=== PATIENT | male | born 1950 | race Caucasian/White ===

== ENCOUNTER 2019-05-01 17:22 | Emergency (ER) | payer SELFPAY ==
--- NOTE | 2019-05-01 17:36 | PDOC ---
Rapid Medical Evaluation Chief Complaint: Pain Time Seen by Provider: 05/01/19 17:29 Medical Evaluation: 05/01/19 17:37 I have performed a brief in-person evaluation of this patient. The patient presents with a chief complaint of: pain to RUQ x 1 hour- was pale / - no N/V/ D/C- had cardiac surgery 5 years ago and family concerned about cardiac disease/ event Pertinent physical exam findings:mobile/ able to walk, move from side to side NO SOB, abd soft. I have ordered the following: EKG The patient will proceed to the ED for further evaluation.- taken to Main for further eval/ workup 05/01/19 17:58 05/01/19 17:58 05/01/19 17:59 Discharge Disposition - Diagnosis Pain - Referrals - Patient Instructions - Post Discharge Activity
[2019-05-01 17:42] VITALS: BP 148/83; PULSE 82; TEMP 98.3; BMI 25.7
[2019-05-01] MEDS ORDERED: SODIUM CHLORIDE 1,000 ML IV STA (18:13)
--- NOTE | 2019-05-01 18:37 | PDOC ---
History of Present Illness - General Chief Complaint: Pain Stated Complaint: RIGHT SIDE PAIN Time Seen by Provider: 05/01/19 17:29 History Source: Patient, Family (daughter in law) Exam Limitations: Language Barrier - History of Present Illness Initial Comments: 05/01/19 18:32 Patient is a 69yo M with PMH of CAD s/p stent 5-6y ago in [facility] presenting to ED with complaints of R sided abdominal/flank pain that started 20 minutes [employer]. He has not had pain like this before. Per daughter in law, patient was sleeping and woke up pale and in a sweat complaining of sharp right sided flank/ abdominal pain. Pain does not radiate, no n/v/d, no urinary symptoms, no fevers. He has not had pain like this before. Denies trauma, chest pain, sob, inspirational chest pain, dizziness, vision changes, numbness/tingling. Patient was brought in for worry of another cardiac event. Is visiting from [facility], arrived about 2 days ago. He took 2 Advil and felt slightly better. PMD: [facility] PMH; see hpi PSH: stent Meds: at home, does not know names Allergies: nkda Social: smoked about 1ppd up until 5 years ago when had PCI Past History - Past Medical History Allergies/Adverse Reactions: Allergies Allergy/AdvReac Type Severity Reaction Status Date / Time No Known Allergies Allergy Verified 05/01/19 17:42 Cardiac Disorders: Yes COPD: No - Surgical History Cardiac Surgery: Yes (STENT) - Suicide/Smoking/Psychosocial Hx Smoking History: Former smoker Have you smoked in the past 12 months: No If you are a former smoker, when did you quit?: 6 YEARS AGO Information on smoking cessation initiated: No Hx Alcohol Use: Yes (DAILY) Drug/Substance Use Hx: No Review of Systems - Review of Systems Constitutional: Yes: Diaphoresis. No: Chills, Fever, Weakness HEENTM: No: Eye Pain, Blurred Vision Respiratory: No: Orthopnea, Shortness of Breath, SOB at Rest, Wheezing, Hemoptysis Cardiac (ROS): No: Chest Pain, Lightheadedness, Palpitations, Syncope, Chest Tightness ABD/GI: Yes: See HPI, Abdominal cramping. No: Constipated, Diarrhea, Nausea, Vomiting : Yes: See HPI, Flank Pain. No: Dysuria, Urgency Musculoskeletal: No: Back Pain, Joint Pain Integumentary: No: Symptoms Reported Neurological: No: Symptoms reported *Physical Exam - Vital Signs Last Vital Signs Temp Pulse Resp BP Pulse Ox 98.3 F 82 16 148/83 96 05/01/19 17:36 05/01/19 17:36 05/01/19 17:36 05/01/19 17:36 05/01/19 17:36 - Physical Exam General Appearance: Yes: Nourished, Appropriately Dressed. No: Apparent Distress HEENT: positive: EOMI, DAXA, Normal ENT Inspection Neck: positive: Trachea midline, Supple. negative: Lymphadenopathy (R), Lymphadenopathy (L) Respiratory/Chest: positive: Lungs Clear, Normal Breath Sounds. negative: Labored Respiration Cardiovascular: positive: Regular Rhythm, Regular Rate, S1, S2. negative: Edema , JVD, Murmur Vascular Pulses: Dorsalis-Pedis (R): 2+, Doralis-Pedis (L): 2+ Gastrointestinal/Abdominal: positive: Soft. negative: Tender, Guarding, Rebound , Tenderness Musculoskeletal: positive: CVA Tenderness (R). negative: Muscle Spasm, Vertebral Tenderness Extremity: positive: Normal Capillary Refill, Pelvis Stable. negative: Pedal Edema, Swelling, Calf Tenderness Integumentary: positive: Normal Color, Dry, Warm Neurologic: positive: engineer soils II-XII NML intact, Fully Oriented, Alert, Normal Mood/ Affect, Normal Response, Motor Strength 5/5 ED Treatment Course - LABORATORY CBC & Chemistry Diagram: 05/01/19 18:27 05/01/19 18:27 - RADIOLOGY Radiology Studies Ordered: Category Date Time Status CHEST X-RAY PORTABLE* [RAD] Stat Radiology 05/01/19 18:13 Ordered Medical Decision Making - Medical Decision Making 05/01/19 18:38 Patient is a 69yo M with PMH of CAD s/p stent 5-6y ago in [facility] presenting to ED with complaints of R sided abdominal/flank pain that started 20 minutes [employer]. He has not had pain like this before. Per daughter in law, patient was sleeping and woke up pale and in a sweat complaining of sharp right sided flank/ abdominal pain. Pain does not radiate, no n/v/d, no urinary symptoms, no fevers. He has not had pain like this before. Denies trauma, chest pain, sob, inspirational chest pain, dizziness, vision changes, numbness/tingling. Patient was brought in for worry of another cardiac event. Is visiting from [facility], arrived about 2 days ago. Vitals: wnl, normocadic, saturating well on RA PE: R sided flank pain. No abdominal tenderness, no swelling, no edema, normal heart sounds, normal breath sounds EKG done in triage showed possible stemi? with julio cesar of about 1.5mm in V3, V4, V6. No depressions. Rate 78, WV 148 QRS 140. QTc 462. NSR, RBBB, LAFB, LVH. TWI in I, aVL, V2, V3, V4, V5, V6. -No priors to compare to DDx includes but not limited to STEMI, NSTEMI, PE, renal stone, cholecystitis, pancreatitis, msk, metabolic/electrolyte abnormality, PNA, effusion, carditis, pneumonitis -Pt not having chest pain, not tachycardic, not diaphoretic, saturating well on RA. Could be taking beta blockers. Low suspicion for STEMI at this time. Will order troponin, cbc, cmp, mg, lipase, UA iv fluids, tylenol for pain for now until etiology is found. Will continue to monitor Considering CTA to r/o pe, CTAP for possible stone however low clinical suspicion given presentation but symptoms are slightly concerning (location of pain, sudden onset) dispo dependent on labs and imaging. Will sign out to night team for further management and dispo *DC/Admit/Observation/Transfer Diagnosis at time of Disposition: Pain - Referrals - Patient Instructions - Post Discharge Activity
[2019-05-01 18:45] LABS: BASO % 0.9 % (0-2.0); EOS % 4.7 % (0-4.5); HEMATOCRIT 45.1 % (35.4-49); HEMOGLOBIN 15.4 GM/dL (11.7-16.9); LYMPH % 20.5 % (8-40); MCH 31.5 pg (25.7-33.7); MCHC 34.1 g/dl (32.0-35.9); MEAN CELL VOLUME 92.5 fl (80-96); MEAN PLT VOLUME 8.5 fl (7.5-11.1); NEUT % 64.9 % (42.8-82.8); PLATELET COUNT 191 K/MM3 (134-434); RBC 4.87 M/mm3 (4.00-5.60); RDW 12.6 % (11.9-15.9); WHITE BLOOD COUNT 7.7 K/mm3 (4.0-10.0)
[2019-05-01] MEDS ORDERED: ACETAMINOPHEN 1000 MG/100 ML VIAL (NON FORMULARY) IVPB ONE (18:48)
[2019-05-01 19:06] LABS: LIPASE 228 U/L (73-393)
[2019-05-01 19:17] LABS: ALBUMIN 3.8 g/dl (3.4-5.0); BILIRUBIN,TOTAL 0.5 mg/dL (0.2-1); CALCIUM 8.8 mg/dL (8.5-10.1); CREATININE 0.9 mg/dL (0.55-1.3); POTASSIUM 3.7 mmol/L (3.5-5.1); TOT PROT 7.5 g/dl (6.4-8.2)
[2019-05-01] MEDS ORDERED: ACETAMINOPHEN INJECTION 100 ML IVPB ONE (19:41)
--- NOTE | 2019-05-01 20:19 | PDOC ---
*Physical Exam - Vital Signs Last Vital Signs Temp Pulse Resp BP Pulse Ox 98.3 F 82 16 148/83 96 05/01/19 17:36 05/01/19 17:36 05/01/19 17:36 05/01/19 17:36 05/01/19 17:36 ED Treatment Course - LABORATORY CBC & Chemistry Diagram: 05/01/19 18:27 05/01/19 18:27 - ADDITIONAL ORDERS Additional order review: Laboratory Results 05/01/19 05/01/19 18:27 18:27 Sodium 136 Potassium 3.7 Chloride 103 Carbon Dioxide 27 Anion Gap 6 L BUN 17.0 Creatinine 0.9 Est GFR (CKD-EPI)AfAm 100.65 Est GFR (CKD-EPI)NonAf 86.84 Random Glucose 110 H Calcium 8.8 Magnesium 2.0 Total Bilirubin 0.5 AST 35 ALT 41 Alkaline Phosphatase 64 Troponin I < 0.02 Total Protein 7.5 Albumin 3.8 Lipase 228 05/01/19 18:27 RBC 4.87 MCV 92.5 MCHC 34.1 RDW 12.6 MPV 8.5 Neutrophils % 64.9 Lymphocytes % 20.5 Monocytes % 9.0 Eosinophils % 4.7 H Basophils % 0.9 - Medications Given in the ED: ED Medications Discontinued Medications Generic Name Dose Route Start Last Admin Trade Name Freq PRN Reason Stop Dose Admin Acetaminophen 1,000 mg 05/01/19 18:48 05/01/19 19:50 Ofirmev Injection - IVPB 05/01/19 18:49 1,000 mg ONCE ONE Administration Sodium Chloride 1,000 mls @ 1,000 mls/hr 05/01/19 18:13 05/01/19 19:49 Normal Saline - IV 05/01/19 19:12 1,000 mls/hr ASDIR STA Administration Medical Decision Making - Medical Decision Making 05/01/19 20:12 S/O from Dr. 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 Pain does not radiate, no n/v/d, no urinary symptoms, no fevers. EKG done in triage showed possible stemi? with julio cesar of about 1.5mm in V3, V4, V6. No depressions. Rate 78, [place] 148 QRS 140. QTc 462. NSR, RBBB, LAFB, LVH. TWI in I, aVL, V2, V3, V4, V5, V6 No priors to compare to DDx includes but not limited to STEMI, NSTEMI, PE, renal stone, cholecystitis, pancreatitis, msk, metabolic/electrolyte abnormality, PNA, effusion, carditis, pneumonitis -Pt not having chest pain, not tachycardic, not diaphoretic, saturating well on RA. Trops neg, labs unremarkable Pending UA Considering CTA to r/o pe, CTAP for possible stone however low clinical suspicion given presentation but symptoms are slightly concerning (location of pain, sudden onset) 05/01/19 22:56 UA neg for blood or infection Due to recent travel (10 hour plane ride) and inability to PERC out, CTA of chest to r/o PE ordered Will repeat trop 05/02/19 01:07 Repeat trop neg Neg CTA for PE Pt has stable vitals, ambulates at baseline. Denies ever having SOB, CP and pain is right sided Pt is safe for DC home with PCP and Cardiology f/u Family understands plan *DC/Admit/Observation/Transfer Diagnosis at time of Disposition: Pain - Discharge Dispostion Disposition: HOME Condition at time of disposition: Stable Decision to Admit order: No - Referrals Referrals: John AGUSTIN [Provider Group] Arelis Griffiths MD [Staff Physician] - - Patient Instructions Additional Instructions: Please follow up with the Primary Doctor and Chauffeur referred to you. Continue taking your home dosed medications as prescribed. Return to the ER for new or concerning symptoms including but not limited to: chest pain, difficulty breathing, new back pain. Thank you - Post Discharge Activity
[2019-05-01 21:44] LABS: URINE APPEARANCE CLEAR; URINE BILIRUBIN NEGATIVE (NEGATIVE); URINE COLOR DK YELLOW; URINE GLUCOSE (UA) NEGATIVE (NEGATIVE); URINE KETONE TRACE (NEGATIVE); URINE LEUK ESTERASE NEGATIVE (NEGATIVE); URINE NITRITE NEGATIVE (NEGATIVE); URINE PROTEIN TRACE (NEGATIVE)
--- NOTE | 2019-05-01 22:03 | PDOC ---
Documentation entered by Gerardo Starr SCRIBE, acting as scribe for Ana Mendieta MD. Ana Mendieta MD: This documentation has been prepared by the florencioibeMatty Daniel, SCRIBE, under my direction and personally reviewed by me in its entirety. I confirm that the documentation accurately reflects all work, treatment, procedures, and medical decision making performed by me. Attending Attestation - Resident Resident Name: Landy Morrison - ED Attending Attestation I have performed the following: I have examined & evaluated the patient, The case was reviewed & discussed with the resident, I agree w/resident's findings & plan, Exceptions are as noted - HPI HPI: 05/01/19 18:18 The patient is a 69 year old male with a past medical history of cardiac catheterization (5-6 years ago in [facility]) here today for evaluation of right sided abdominal/flank pain. The patient only speaks Burmese, so daughter at bedside translated. The patient reports that he came to [place] 2 days ago from [facility] and developed right sided flank pain that radiates to the back that woke him up from sleep. Daughter also notes diaphoresis and paleness that have since resolved. Patient denies headache, lightheadedness. Denies fever, chills. Denies chest pain, shortness of breath. Denies nausea, vomiting, diarrhea. Allergies: NKA Social history: Patient confirms former tobacco use (pack a day smoker for 50 years, quit 5 years ago) and social alcohol use. PCP: In [facility] - Physicial Exam PE: 05/01/19 22:00 slender 69-year-old male came to the emergency department because he was awoken by a sudden ight sided pain. His family said he was sweating. He denies any chest pain, shortness of breath, nausea, vomiting, fever or chills, cough. 05/01/19 22:01 slender 69 yo male currently in no distress head ncat neck supple lungs cta b/l cvs [id number] abd no rebound,no guarding no flank pain skin warm and dry neuro axox3,ambulatory psych appropraite - Medical Decision Making 05/02/19 01:04 CTA chest findings: No pulmonary embolism. No aortic dissection or aneurysm. No pneumonia or pleural effusions. Dependent atelectasis bilateral lungs. Minimal left greater than right gynecomastia. Heterogeneous hyperattenuation bilateral kidneys, incompletely seen, question contrast nephropathy following IV contrast administration from a prior exam. Correlate clinically. Small cystic focus right kidney. Right adrenal gland calcification. Steatosis liver. 05/02/19 01:08 69 yo male who traveled from [facility] several days ago p/w acute rt sided pain and diaphoresis according to the family he denied chest pain or shortness of breath -he had no nausea or vomiting lungs were cta b/l, benign abd exam,cvs [id number] labs reviewed and cbc unremarkable troponin x 2 were negative CTA chest negative 05/02/19 01:23 imp: muscle strain/ ? passed kidney stone plan pt feels much better,symptoms resolved, d/c home
--- NOTE | 2019-05-02 14:46 | EKG ---
Test Reason : Blood Pressure : / mmHG Vent. Rate : 076 BPM Atrial Rate : 076 BPM P-R Int : 146 ms QRS Dur : 140 ms QT Int : 406 ms P-R-T Axes : 062 -71 144 degrees QTc Int : 456 ms NORMAL SINUS RHYTHM POSSIBLE LEFT ATRIAL ENLARGEMENT RIGHT BUNDLE BRANCH BLOCK LEFT ANTERIOR FASCICULAR BLOCK BIFASCICULAR BLOCK LEFT VENTRICULAR HYPERTROPHY ANTEROSEPTAL INFARCT , AGE UNDETERMINED T WAVE ABNORMALITY, CONSIDER LATERAL ISCHEMIA ABNORMAL ECG NO PREVIOUS ECGS AVAILABLE Confirmed by MD KELLEE, WILLIE ([id number]) on 05/02/2019 2:46:13 PM Referred By: Confirmed By:WILLIE GOODSON MD
== END 2019-05-02 02:11 | disposition home or self-care (01) ==
LOC: JER 17:22
PROC: 3E0337Z Introduction of Electrolytic and Water Balance Substance into Peripheral Vein, Percutaneous Approach (ICD-10-PCS; principal; 2019-05-01)
PROC: 3E033NZ Introduction of Analgesics, Hypnotics, Sedatives into Peripheral Vein, Percutaneous Approach (ICD-10-PCS; 2019-05-01)
DX: R10.31 Right lower quadrant pain (principal); I25.10 Atherosclerotic heart disease of native coronary artery without angina pectoris; Z95.5 Presence of coronary angioplasty implant and graft
CPT/HCPCS: 36415; 71045-TC-FY; 71275-TC; 80053; 81003; 83690; 83735; 84484; 85025; 87086; 93005; 93010; 99282-25; J0131; J7030

== ENCOUNTER 2019-05-02 12:12 | Inpatient (IN) | payer OTHER ==
--- NOTE | 2019-05-02 12:39 | PDOC ---
History of Present Illness - General Chief Complaint: Pain, Acute Stated Complaint: RT SIDE PAIN Time Seen by Provider: 05/02/19 12:39 History Source: Patient Past History - Past Medical History Allergies/Adverse Reactions: Allergies Allergy/AdvReac Type Severity Reaction Status Date / Time No Known Allergies Allergy Verified 05/02/19 12:15 Cardiac Disorders: Yes COPD: No - Surgical History Cardiac Surgery: Yes (STENT) - Suicide/Smoking/Psychosocial Hx Smoking History: Unknown if ever smoked Have you smoked in the past 12 months: No If you are a former smoker, when did you quit?: 6 YEARS AGO Hx Alcohol Use: Yes (DAILY) Drug/Substance Use Hx: No *Physical Exam - Vital Signs Last Vital Signs Temp Pulse Resp BP Pulse Ox 97.2 F L 76 18 145/82 97 05/02/19 12:13 05/02/19 12:13 05/02/19 12:13 05/02/19 12:13 05/02/19 12:13
[2019-05-02 13:03] LABS: BASO % 0.5 % (0-2.0); EOS % 2.5 % (0-4.5); HEMATOCRIT 45.4 % (35.4-49); HEMOGLOBIN 15.5 GM/dL (11.7-16.9); LYMPH % 15.4 % (8-40); MCH 31.6 pg (25.7-33.7); MCHC 34.1 g/dl (32.0-35.9); MEAN CELL VOLUME 92.4 fl (80-96); MEAN PLT VOLUME 8.5 fl (7.5-11.1); MONO % 8.7 % (3.8-10.2); NEUT % 72.9 % (42.8-82.8); PLATELET COUNT 191 K/MM3 (134-434); RBC 4.91 M/mm3 (4.00-5.60); RDW 12.7 % (11.9-15.9)
[2019-05-02] MEDS ORDERED: ACETAMINOPHEN 1000 MG/100 ML VIAL (NON FORMULARY) IVPB ONE (13:12)
--- NOTE | 2019-05-02 13:14 | PDOC ---
Documentation entered by Paola Parkinson SCRIBE, acting as scribe for Adriana Membreno MD. Adriana Membreno MD: This documentation has been prepared by the Tesha davis Adrianna, SCRIBE, under my direction and personally reviewed by me in its entirety. I confirm that the documentation accurately reflects all work, treatment, procedures, and medical decision making performed by me. Attending Attestation - Resident Resident Name: Landy Morrison - ED Attending Attestation I have performed the following: I have examined & evaluated the patient, The case was reviewed & discussed with the resident, I agree w/resident's findings & plan - HPI HPI: 69 y/o male, with PMH of CAD (s/p stent 5-6 years ago), presenting with low back and abdominal pain. Patient was evaluated in the ED yesterday, with a CTA negative for PE and chest pathology. He states his pain remains over the low back that radiates to the RLQ. Endorses some relief with Tylenol. Denies fever, chills, chest pain, SOB, palpitation, dizziness, weakness, N, V, D , bladder and bowel problems, leg swelling, No sick contacts or travel. No new changes in medications. No suspicious food intake Allergies: NKA, NKDA Past Medical History: CAD (s/p stent) Social history: Lives with family. Former smoker. No ETOH or drug use. Surgical history: Stent Meds: as documented in EMR PMD: NOS (doctor in [facility]) 05/02/19 13:51 - Physicial Exam PE: Agree with the resident's HPI and PE as documented in the electronic medical record. uncomfortable appearing, EOMI, PERRL, nl conjunctiva, anicteric; neck supple. lungs clear, RRR, abdomen soft +rt flank TTP, RLQ tenderness. Back nontender. CARUSO x4, no focal neuro deficits. No peripheral edema. normal color for ethnicity , WW. 05/02/19 13:51 05/02/19 15:09 - Medical Decision Making 05/02/19 13:12 See HPI for details. Prior notes reviewed, including admissions, discharges and consultations. Vital signs reviewed, wnl. DDx abdominal pain: Renal colic, renal infarction/ischemia, vascular pathology , biliary colic, metabolic/electrolyte derangements. GERD, PUD, esophageal spasm , pancreatitis, hepatitis, constipation, colitis, gastroenteritis, cholecystitis , UTI, pyelonephritis, ileus, SBO, medication side effect, hernia, appendicitis , diverticulitis, mesenteric ischemia. msk strain, mesenteric adenitis, psoas abscess. laboratory results and imaging reviewed, basic labs and lytes wnl, unchanged from yesterday's upon review LFTs/lipase_normal Cardiac panel_negative, EKG normal sinus rhythm, no interval abnormalities, narrow QRS, ST elevations in anterior leads V1-4 no reciprocal depressions, and T wave segments and morphology normal. Nonspecific T wave abnormalities similar to yesterday ED course - CT angio chest neg for PE yesterday. -interventions: analgesia, fluids CT a/p to eval for abdominal /renal etiology, as that was not done yesterday no cp or sob, syncope today. no systemic sx/findings. findings of rt renal infarction/hypodensity, large area. unlikely pyelo, as no urinary sx, unremarkable UA for s/s infection heparin, anticoagulation vascular cs Dr Love admit for renal infarction/ischemia. hospitalist service, pmd in [facility] pt and family made aware of impression and plan. 05/02/19 14:15 05/02/19 15:08 05/02/19 15:09 05/02/19 16:05 Heart Score/ECG Review #1 ECG reviewed & interpreted by me at: 12:45 General ECG Interpretation: Sinus Rhythm, Normal Rate, Normal Intervals Compared to previous ECG there are: No significant change 05/02/19 13:14 EKG normal sinus rhythm, no interval abnormalities, narrow QRS, ST elevations in anterior leads V1-4 no reciprocal depressions, and T wave segments and morphology normal. Nonspecific T wave abnormalities similar to yesterday ED Treatment Course - LABORATORY CBC & Chemistry Diagram: 05/02/19 12:39 05/02/19 12:39 - ADDITIONAL ORDERS Additional order review: Laboratory Results 05/02/19 05/02/19 05/02/19 13:13 12:39 12:39 Sodium 137 Potassium 3.9 Chloride 106 Carbon Dioxide 24 Anion Gap 7 L BUN 12.7 Creatinine 0.9 Est GFR (CKD-EPI)AfAm 100.65 Est GFR (CKD-EPI)NonAf 86.84 Random Glucose 113 H Lactic Acid 0.9 Calcium 8.5 Total Bilirubin 1.0 AST 76 H ALT 60 Alkaline Phosphatase 58 Troponin I < 0.02 Total Protein 7.1 Albumin 3.6 Lipase 141 05/02/19 12:39 RBC 4.91 MCV 92.4 MCHC 34.1 RDW 12.7 MPV 8.5 Neutrophils % 72.9 Lymphocytes % 15.4 D Monocytes % 8.7 Eosinophils % 2.5 Basophils % 0.5 - RADIOLOGY Radiology Studies Ordered: EXAM#: TYPE/EXAM: RESULT: [id number] CT/ABDOMEN PELVIS CT WITH CONTR Abdomen and pelvis CT with contrast CLINICAL INFORMATION: right lower quadrant pain IMPRESSION: At least moderate right renal cortical hypodensity is seen which is suggestive of acute infarction and probably less likely due to acute pyelonephritis. Clinical/laboratory correlation is essential. No CT evidence of acute appendicitis or colitis. Several punctate right adrenal calcifications are noted which are probably post infectious or posttraumatic. Reported By: Loc Su MD 05/02/19 14:56 - Medications Given in the ED: ED Medications Discontinued Medications Generic Name Dose Route Start Last Admin Trade Name Freq PRN Reason Stop Dose Admin Acetaminophen 1,000 mg 05/02/19 13:12 05/02/19 14:33 Ofirmev Injection - IVPB 05/02/19 13:13 1,000 mg ONCE ONE Administration
--- NOTE | 2019-05-02 13:36 | PDOC ---
History of Present Illness - General History Source: Patient, Family (daughter in law), Creative Art Therapist Used Exam Limitations: Language Barrier - History of Present Illness Initial Comments: 05/02/19 15:12 69yo M with PMH of CAD s/p stent in [facility] 5-6y ago presenting to ED with complaints of R flank pain radiating to the RLQ. He had similar pains yesterday , labs were negative, CTA negative and sent home. Pt states pain is worse today , worse when laying down, better when standing. Denies injury, chest pain, n/v/d , bloody stools, urinary symptoms, testicular pain, fevers, chills, weakness, weightloss, nightsweats, sob, sick contacts. PMD: [facility] PMH: see hpi PSH: see hpi Meds: Bystolic, atorvastatin, Plavix Allergies: nkda <Landy Morrison - Last Filed: 05/02/19 19:35> <Adriana Membreno - Last Filed: 05/02/19 22:58> - General Chief Complaint: Pain, Acute Stated Complaint: RT SIDE PAIN Time Seen by Provider: 05/02/19 12:39 Past History - Past Medical History Cardiac Disorders: Yes COPD: No - Surgical History Cardiac Surgery: Yes (STENT) - Suicide/Smoking/Psychosocial Hx Smoking History: Unknown if ever smoked Have you smoked in the past 12 months: No If you are a former smoker, when did you quit?: 6 YEARS AGO Hx Alcohol Use: Yes (DAILY) Drug/Substance Use Hx: No <Landy Morrison - Last Filed: 05/02/19 19:35> <Adriana Membreno - Last Filed: 05/02/19 22:58> - Past Medical History Allergies/Adverse Reactions: Allergies Allergy/AdvReac Type Severity Reaction Status Date / Time No Known Allergies Allergy Verified 05/02/19 12:15 Home Medications: Ambulatory Orders Atorvastatin Ca [Lipitor] 20 mg PO HS 05/02/19 Clopidogrel Bisulfate [Plavix] 75 mg PO DAILY 05/02/19 Nebivolol [Bystolic -] 5 mg PO DAILY 05/02/19 Review of Systems - Review of Systems Constitutional: No: Symptoms Reported HEENTM: No: Symptoms Reported Respiratory: No: Symptoms reported Cardiac (ROS): No: Symptoms Reported ABD/GI: Yes: See HPI. No: Constipated, Diarrhea, Nausea, Vomiting : Yes: See HPI, Flank Pain Musculoskeletal: No: Symptoms Reported Integumentary: No: Symptoms Reported Neurological: No: Symptoms reported <Landy Morrison - Last Filed: 05/02/19 19:35> *Physical Exam - Vital Signs Last Vital Signs Temp Pulse Resp BP Pulse Ox 97.2 F L 76 18 145/82 97 05/02/19 12:13 05/02/19 12:13 05/02/19 12:13 05/02/19 12:13 05/02/19 12:13 - Physical Exam General Appearance: Yes: Nourished, Appropriately Dressed, Mild Distress HEENT: positive: EOMI, DAXA Neck: positive: Trachea midline, Supple Respiratory/Chest: positive: Lungs Clear, Normal Breath Sounds. negative: Crackles, Wheezing Cardiovascular: positive: Regular Rhythm, Regular Rate, S1, S2. negative: Edema , JVD, Murmur Vascular Pulses: Dorsalis-Pedis (R): 2+, Doralis-Pedis (L): 2+ Gastrointestinal/Abdominal: positive: Normal Bowel Sounds, Soft. negative: Tender, Pulsatile Mass Musculoskeletal: positive: CVA Tenderness (R). negative: CVA Tenderness (L), Vertebral Tenderness Extremity: positive: Normal Capillary Refill, Pelvis Stable. negative: Pedal Edema, Swelling, Calf Tenderness Integumentary: positive: Normal Color, Dry, Warm Neurologic: positive: teaching specialists II-XII NML intact, Fully Oriented, Alert, Normal Mood/ Affect, Normal Response, Motor Strength 5/5 <Landy Morrison - Last Filed: 05/02/19 19:35> - Vital Signs Last Vital Signs Temp Pulse Resp BP Pulse Ox 98.0 F 79 12 144/79 97 05/02/19 16:51 05/02/19 16:51 05/02/19 16:51 05/02/19 16:51 05/02/19 16:51 <Adriana Membreno - Last Filed: 05/02/19 22:58> ED Treatment Course - LABORATORY CBC & Chemistry Diagram: 05/02/19 12:39 05/02/19 12:39 - ADDITIONAL ORDERS Additional order review: 05/02/19 12:39 RBC 4.91 MCV 92.4 MCHC 34.1 RDW 12.7 MPV 8.5 Neutrophils % 72.9 Lymphocytes % 15.4 D Monocytes % 8.7 Eosinophils % 2.5 Basophils % 0.5 - RADIOLOGY Radiology Studies Ordered: Category Date Time Status ABDOMEN & PELVIS CT WITH CONTR [CT] Stat CT Scan 05/02/19 13:08 Ordered <Landy Morrison - Last Filed: 05/02/19 19:35> - LABORATORY CBC & Chemistry Diagram: 05/02/19 12:39 05/02/19 12:39 - ADDITIONAL ORDERS Additional order review: Laboratory Results 05/02/19 05/02/19 05/02/19 13:13 12:39 12:39 Sodium 137 Potassium 3.9 Chloride 106 Carbon Dioxide 24 Anion Gap 7 L BUN 12.7 Creatinine 0.9 Est GFR (CKD-EPI)AfAm 100.65 Est GFR (CKD-EPI)NonAf 86.84 Random Glucose 113 H Lactic Acid 0.9 Calcium 8.5 Total Bilirubin 1.0 AST 76 H ALT 60 Alkaline Phosphatase 58 Troponin I < 0.02 Total Protein 7.1 Albumin 3.6 Lipase 141 05/02/19 12:39 RBC 4.91 MCV 92.4 MCHC 34.1 RDW 12.7 MPV 8.5 Neutrophils % 72.9 Lymphocytes % 15.4 D Monocytes % 8.7 Eosinophils % 2.5 Basophils % 0.5 - Medications Given in the ED: ED Medications Discontinued Medications Generic Name Dose Route Start Last Admin Trade Name Freq PRN Reason Stop Dose Admin Acetaminophen 1,000 mg 05/02/19 13:12 05/02/19 14:33 Ofirmev Injection - IVPB 05/02/19 13:13 1,000 mg ONCE ONE Administration Heparin Sodium (Porcine) 4,000 unit 05/02/19 15:13 05/02/19 16:48 Heparin - IVPUSH 05/02/19 15:14 4,000 unit ONCE ONE Administration Sodium Chloride 1,000 mls @ 1,000 mls/hr 05/02/19 15:07 05/02/19 15:22 Normal Saline - IV 05/02/19 16:06 Not Given ASDIR STA Morphine Sulfate 4 mg 05/02/19 15:04 05/02/19 15:21 Morphine Injection - IVPUSH 05/02/19 15:05 4 mg ONCE ONE Administration Morphine Sulfate 4 mg 05/02/19 15:07 05/02/19 15:22 Morphine Injection - IVPUSH 05/02/19 15:08 Not Given ONCE ONE Sodium Chloride 1,000 ml 05/02/19 15:04 05/02/19 15:22 Normal Saline - IV 05/02/19 15:05 1,000 ml ONCE ONE Administration <Adriana Membreno Jayden - Last Filed: 05/02/19 22:58> Medical Decision Making - Medical Decision Making 05/02/19 19:43 69yo M with PMH of CAD s/p stent in [facility] 5-6y ago presenting to ED with complaints of R flank pain radiating to the RLQ. He had similar pains yesterday , labs were negative, CTA negative and sent home. Pt states pain is worse today , worse when laying down, better when standing. Denies injury, chest pain, n/v/d , bloody stools, urinary symptoms, testicular pain, fevers, chills, weakness, weightloss, nightsweats, sob, sick contacts. Vitals: wnl PE: r flank tenderness, rlq tenderness. ddx includes but not limited to appendicitis, aaa, colitis, cholecystitis, nephrolithiasis, electrolyte/metabolic abnormality. low suspicion for acs and pe given negative workup yesterday. -ekg, ctap with iv contrast -trop, cbc, cmp, lactate -iv fluids, tylenol labs wnl. ekg similar to prior with slight julio cesar in lateral leads no changes. CTAP R renal infarct. will give morphine for pain, start on heparin. Vascular consulted. agreed with plan. will admit patient. <Landy Morrison - Last Filed: 05/02/19 19:35> *DC/Admit/Observation/Transfer <Landy Morrison - Last Filed: 05/02/19 19:35> - Discharge Dispostion Decision to Admit order: Yes <Adriana Membreno - Last Filed: 05/02/19 22:58> Diagnosis at time of Disposition: Infarction of kidney - Discharge Dispostion Condition at time of disposition: Fair
[2019-05-02 13:39] LABS: ALBUMIN 3.6 g/dl (3.4-5.0); BLOOD UREA NITROGEN 12.7 mg/dL (7-18); CALCIUM 8.5 mg/dL (8.5-10.1); CREATININE 0.9 mg/dL (0.55-1.3); POTASSIUM 3.9 mmol/L (3.5-5.1); TOT PROT 7.1 g/dl (6.4-8.2)
[2019-05-02] MEDS ORDERED: ACETAMINOPHEN INJECTION 100 ML IVPB ONE (13:42)
[2019-05-02] MEDS ORDERED: SODIUM CHLORIDE 0.9% 500 ML INFUS.BAG IV ONE (15:04)
[2019-05-02] MEDS ORDERED: morphine CARPU-JECT 4 MG/1 ML DISP.SYRIN IVPUSH ONE ×2 (15:04→15:07)
[2019-05-02] MEDS ORDERED: SODIUM CHLORIDE 1,000 ML IV STA (15:07)
[2019-05-02] MEDS ORDERED: HEPARIN NA (PORCINE) 5,000 UNITS/ML 1ML VIAL IVPUSH PRN (15:13)
[2019-05-02] MEDS ORDERED: HEPARIN NA (PORCINE) 5,000 UNITS/ML 1ML VIAL IVPUSH ONE (15:13)
[2019-05-02] MEDS ORDERED: morphine SULFATE 4 MG/ML VIAL ONE (15:18)
--- NOTE | 2019-05-02 15:48 | EKG ---
Test Reason : Blood Pressure : / mmHG Vent. Rate : 071 BPM Atrial Rate : 071 BPM P-R Int : 152 ms QRS Dur : 136 ms QT Int : 444 ms P-R-T Axes : 034 -69 -86 degrees QTc Int : 482 ms NORMAL SINUS RHYTHM RIGHT BUNDLE BRANCH BLOCK LEFT ANTERIOR FASCICULAR BLOCK BIFASCICULAR BLOCK MINIMAL VOLTAGE CRITERIA FOR LVH, MAY BE NORMAL VARIANT ANTEROSEPTAL INFARCT (CITED ON OR BEFORE 01-MAY-2019) T WAVE ABNORMALITY, CONSIDER LATERAL ISCHEMIA ABNORMAL ECG WHEN COMPARED WITH ECG OF 01-MAY-2019 17:41, NO SIGNIFICANT CHANGE WAS FOUND Confirmed by MD KELLEE, WILLIE ([id number]) on 05/02/2019 3:47:53 PM Referred By: Confirmed By:WILLIE GOODSON MD
[2019-05-02 16:01] LABS: INR 0.91 (0.83-1.09); PROTHROMBIN TIME (PATIENT) 10.7 SEC (9.7-13.0)
[2019-05-02 16:04] LABS: ACTIVATED PTT 31.2 SECONDS (25.2-36.5)
[2019-05-02] MEDS ORDERED: HEPARIN NA (PORCINE) 5,000 UNITS/ML 1ML VIAL ONE (16:25)
[2019-05-02] MEDS ORDERED: HEPARIN INFUSION - 25,000 UNITS/500 ML INFUS.BAG IVPB ONE (16:25)
[2019-05-02] MEDS: HEPARIN - 25,000 UNIT in SODIUM CHLORIDE 495 ML IV SCH (16:37)
--- NOTE | 2019-05-02 16:37 | HP ---
Admitting History and Physical - Primary Care Physician PCP: none (has not seen [facility] care provider in 6 years) - Admission Chief Complaint: right flank, RLQ abdominal pain x 1 day History Source: Family Member (daughter as technology coach-patients[employer]aks only maltese) Limitations to Obtaining History: Language Barrier - Past Medical History Cardiovascular: Yes: Other (BMS in [facility] 6 years ago) - Smoking History Smoking history: Never smoked Have you smoked in the past 12 months: No If you are a former smoker, when did you quit?: 6 YEARS AGO - Alcohol/Substance Use Hx Alcohol Use: Yes (DAILY as per daughter) History of Substance Use: reports: None - Social History Usual Living Arrangement: Yes: With Spouse ADL: Independent History of Recent Travel: No Home Medications - Allergies Allergies/Adverse Reactions: Allergies Allergy/AdvReac Type Severity Reaction Status Date / Time No Known Allergies Allergy Verified 05/02/19 12:15 - Home Medications Home Medications: Ambulatory Orders Atorvastatin Ca [Lipitor] 20 mg PO HS 05/02/19 Clopidogrel Bisulfate [Plavix] 75 mg PO DAILY 05/02/19 Nebivolol [Bystolic -] 5 mg PO DAILY 05/02/19 Family Disease History - Family Disease History Family History: Unable to Obtain (not known by daughter) Review of Systems - Review of Systems Constitutional: reports: No Symptoms Eyes: reports: No Symptoms HENT: reports: No Symptoms Neck: reports: No Symptoms Cardiovascular: reports: No Symptoms Respiratory: reports: No Symptoms Gastrointestinal: reports: Abdominal Pain (generalized x 1 day) Genitourinary: reports: Flank Pain (right) Breasts: reports: No Symptoms Reported Musculoskeletal: reports: No Symptoms Integumentary: reports: No Symptoms Neurological: reports: No Symptoms Endocrine: reports: No Symptoms Hematology/Lymphatic: reports: No Symptoms Psychiatric: reports: No Symptoms Physical Examination Vital Signs: Vital Signs Temperature 97.2 F L 05/02/19 12:13 Pulse Rate 76 05/02/19 12:13 Respiratory Rate 18 05/02/19 12:13 Blood Pressure 145/82 05/02/19 12:13 O2 Sat by Pulse Oximetry (%) 97 05/02/19 12:13 Constitutional: Yes: Well Nourished, No Distress, Calm Eyes: Yes: WNL, Conjunctiva Clear, EOM Intact HENT: Yes: WNL, Atraumatic, Normocephalic Neck: Yes: WNL, Supple, Trachea Midline Cardiovascular: Yes: WNL, Regular Rate and Rhythm Respiratory: Yes: WNL, Regular, CTA Bilaterally Gastrointestinal: Yes: Normal Bowel Sounds, Soft, Tenderness (to RLQ) ...Rectal Exam: Yes: Deferred Renal/: Yes: CVA Tenderness - Right Breast(s): Yes: WNL Musculoskeletal: Yes: WNL Extremities: Yes: WNL Edema: No Peripheral Pulses WNL: Yes Integumentary: Yes: WNL Neurological: Yes: WNL, Alert, Oriented ...Motor Strength: WNL Psychiatric: Yes: WNL, Alert, Oriented Labs: CBC, BMP 05/02/19 12:39 05/02/19 12:39 Imaging - Results Cat Scan: Report Reviewed (CTA yesterday negative for PE and chest pathology. CT abd/pelvis findings of rt renal infarction/hypodensity, large area. Unlikely acute hydronephrotis) EKG: Report Reviewed, Image Reviewed (EKG normal sinus rhythm, no interval abnormalities, narrow QRS, ST elevations in anterior leads V1-4 no reciprocal depressions, and T wave segments and morphology normal. Nonspecific T wave abnormalities similar to yesterday) Problem List - Problems (1) Abdominal pain Assessment/Plan: CT abd/pelvis revealed rt renal infarction/hypodensity, large area. maintain NPO MSO4 prn for pain Code(s): R10.9 - UNSPECIFIED ABDOMINAL PAIN (2) Infarction of kidney Assessment/Plan: Dr Love to see patient, started on heparin gtt will monitor for s/s of bleeding monitor PTT Code(s): N28.0 - ISCHEMIA AND INFARCTION OF KIDNEY (3) Prophylactic measure Assessment/Plan: FEN NPO until plan determined by Vascular IVF at 100cc/hr until taking PO monitor electrolytes DVT Prohp on heparin gtt Dispo maintain as inpatient full code discharge planning Code(s): Z29.9 - ENCOUNTER FOR PROPHYLACTIC MEASURES, UNSPECIFIED Visit type - Emergency Visit Emergency Visit: Yes ED Registration Date: 05/02/19 Care time: The patient presented to the Emergency Department on the above date and was hospitalized for further evaluation of their emergent condition. - New Patient This patient is new to me today: Yes Date on this admission: 05/02/19 - Critical Care Critical Care patient: No
[2019-05-02] MEDS: SODIUM CHLORIDE 1,000 ML IV SCH (18:37)
--- NOTE | 2019-05-02 18:49 | CONSULT ---
Consult Consult Specialty:: Vascular Surgery - History of Present Illness History of Present Illness: 69 year old man with PMH ASCVD s/p PCI in the past presents with 1 day history of sudden onset severe pain in right flank. Patient came to E yesterday and had CT chest to r/o PE. he returned today with same complaint. CT scan shows lack of blood flow to 1/2 right kidney. He denies any history of arrhythmia or trauma. - History Source History Provided By: Family Member - Past Medical History Cardio/Vascular: Yes: CAD, Other (BMS in [facility] 6 years ago) - Alcohol/Substance Use Hx Alcohol Use: Yes (DAILY as per daughter) History of Substance Use: reports: None - Smoking History Smoking history: Never smoked Have you smoked in the past 12 months: No If you are a former smoker, when did you quit?: 6 YEARS AGO - Social History ADL: Independent History of Recent Travel: No Home Medications - Allergies Allergies/Adverse Reactions: Allergies Allergy/AdvReac Type Severity Reaction Status Date / Time No Known Allergies Allergy Verified 05/02/19 12:15 - Home Medications Home Medications: Ambulatory Orders Atorvastatin Ca [Lipitor] 20 mg PO HS 05/02/19 Clopidogrel Bisulfate [Plavix] 75 mg PO DAILY 05/02/19 Nebivolol [Bystolic -] 5 mg PO DAILY 05/02/19 Physical Exam Vital Signs: Vital Signs Temperature 98.0 F 05/02/19 16:51 Pulse Rate 79 05/02/19 16:51 Respiratory Rate 12 05/02/19 16:51 Blood Pressure 144/79 05/02/19 16:51 O2 Sat by Pulse Oximetry (%) 97 05/02/19 16:51 Constitutional: Yes: No Distress Eyes: Yes: WNL HENT: Yes: WNL Cardiovascular: Yes: Regular Rate and Rhythm Gastrointestinal: Yes: Soft, Tenderness (mild RUQ) Extremities: Yes: WNL, Other (no discoloration or edema.) Edema: No Peripheral Pulses WNL: Yes (Palp DP and PT bilaterally) Labs: CBC, BMP 05/02/19 12:39 05/02/19 12:39 Imaging - Results Cat Scan: Image Reviewed (Right kidney absent flow to posterior 1/2) Problem List - Problems (1) Infarction of kidney Assessment/Plan: Acute presentation of a partial renal infarct suggests an embolic source or arterial dissection. The CT does not show any potential source and he does not have atrial fibrillation. A CTA will be needed to better evaluate for renal artery pathology. Echocardiogram and possibly RICARDO may be needed to rule out a cardiac source. AT this point, > 24 hours have elapsed and no intervention for the damaged kidney is indicated. IV Heparin has been started and should continue until an etiology is determined. Code(s): N28.0 - ISCHEMIA AND INFARCTION OF KIDNEY
[2019-05-03 07:40] LABS: HEMATOCRIT 42.5 % (35.4-49); HEMOGLOBIN 14.5 GM/dL (11.7-16.9); MCH 31.5 pg (25.7-33.7); MCHC 34.1 g/dl (32.0-35.9); MEAN CELL VOLUME 92.3 fl (80-96); MEAN PLT VOLUME 9.1 fl (7.5-11.1); PLATELET COUNT 160 K/MM3 (134-434); RDW 12.6 % (11.9-15.9); WHITE BLOOD COUNT 9.7 K/mm3 (4.0-10.0)
[2019-05-03 07:57] LABS: ALBUMIN 3.2 g/dl (3.4-5.0); BILIRUBIN,TOTAL 1.1 mg/dL (0.2-1); BLOOD UREA NITROGEN 7.8 mg/dL (7-18); CALCIUM 8.3 mg/dL (8.5-10.1); CREATININE 0.8 mg/dL (0.55-1.3); POTASSIUM 3.7 mmol/L (3.5-5.1); TOT PROT 6.6 g/dl (6.4-8.2)
[2019-05-03 07:58] LABS: INR 1.01 (0.83-1.09); PROTHROMBIN TIME (PATIENT) 11.9 SEC (9.7-13.0)
--- NOTE | 2019-05-03 08:03 | PN ---
Progress Note, Physician Chief Complaint: via interpretation by daughter mild right flank pain History of Present Illness: right flank, RLQ abdominal pain x 1 day - Current Medication List Current Medications: Active Medications Heparin Sodium (Porcine) (Heparin -) 1,000 unit IVPUSH PRN PRN PRN Reason: Heparin Heparin Sodium (Porcine) (Heparin -) 5,000 unit IVPUSH PRN PRN PRN Reason: Heparin Heparin Sodium (Porcine) 25, (000 unit/ Sodium Chloride) 500 mls @ 20 mls/hr IV TITR MAZIN; Protocol Last Admin: 05/02/19 16:37 Dose: 1,000 unit/hr, 20 mls/hr Sodium Chloride (Normal Saline -) 1,000 mls @ 100 mls/hr IV ASDIR MAZIN Last Admin: 05/02/19 18:37 Dose: 100 mls/hr - Objective Vital Signs: Vital Signs Temperature 98.6 F 05/03/19 06:00 Pulse Rate 75 05/03/19 06:00 Respiratory Rate 18 05/03/19 06:00 Blood Pressure 147/82 05/03/19 06:00 O2 Sat by Pulse Oximetry (%) 97 05/02/19 21:00 Constitutional: Yes: Well Nourished, No Distress, Calm Eyes: Yes: WNL, Conjunctiva Clear, EOM Intact HENT: Yes: WNL, Atraumatic, Normocephalic Neck: Yes: WNL, Supple, Trachea Midline Cardiovascular: Yes: WNL, Regular Rate and Rhythm Respiratory: Yes: WNL, Regular, CTA Bilaterally Gastrointestinal: Yes: WNL, Normal Bowel Sounds, Other (right flank pain) ...Rectal Exam: Yes: Deferred Genitourinary: Yes: WNL Musculoskeletal: Yes: WNL Extremities: Yes: WNL Edema: No Peripheral Pulses WNL: Yes Integumentary: Yes: WNL Neurological: Yes: WNL, Alert, Oriented, Other (as per daughter) Labs: CBC, BMP 05/03/19 06:20 05/03/19 06:20 INR, PTT INR 1.01 (0.83-1.09) 05/03/19 06:20 - ....Imaging Other: Report Reviewed (TTE:echo showed severely reduced ef 35% apical dyskinesis possible apical thrombus - most likely source of emboli) Problem List - Problems (1) Abdominal pain Assessment/Plan: CT abd/pelvis revealed rt renal infarction/hypodensity, large area. Code(s): R10.9 - UNSPECIFIED ABDOMINAL PAIN (2) Infarction of kidney Assessment/Plan: Dr Love following patient will need terminal worker ac with coumadin - cont IV heparin for now according to protocol restart Plavix- will monitor for s/s of bleeding monitor PTT Code(s): N28.0 - ISCHEMIA AND INFARCTION OF KIDNEY (3) Prophylactic measure Assessment/Plan: FEN may resume cardiac diet monitor electrolytes DVT Prohp on heparin gtt as per protocol eventually transition to coumadin Dispo maintain as inpatient on tele full code discharge planning Code(s): Z29.9 - ENCOUNTER FOR PROPHYLACTIC MEASURES, UNSPECIFIED (4) Left ventricular dysfunction with reduced left ventricular function Assessment/Plan: TTE showed severely reduced EF 35% apical dyskinesis possible apical thrombus - most likely source of emboli cardiology note appreciate transfer to telemetry for cardiac monitoring restart home dose of Plavix will need further w/u for possible AICD if Cr stabilizes will start on low dose [id number] to preserve LV fx Code(s): I51.9 - HEART DISEASE, UNSPECIFIED Visit type - Emergency Visit Emergency Visit: Yes ED Registration Date: 05/02/19 Care time: The patient presented to the Emergency Department on the above date and was hospitalized for further evaluation of their emergent condition. - New Patient This patient is new to me today: No - Critical Care Critical Care patient: No - Discharge Referral Referred to [facility] No
--- NOTE | 2019-05-03 08:34 | CONSULT ---
Consult - text type - Consultation Consultation Note: 69 year old male with right sided flank pain. CT suggests partial renal infarct. Agree with Vascular surgery consult recommendations
[2019-05-03] MEDS ORDERED: PT OWN MED DRAWER 7, Y5N ONE ×2 (11:05→12:48)
[2019-05-03] MEDS: SODIUM CHLORIDE 1,000 ML IV SCH ×2 (11:14→22:49)
[2019-05-03] MEDS: NEBIVOLOL 5 MG TABLET (FP) PO SCH (11:14)
--- NOTE | 2019-05-03 11:39 | CON.CARD ---
Consult Consult Specialty:: Cardiology - History of Present Illness History of Present Illness: 69 y/o male, with PMH of CAD (s/p stent 5-6 years ago), presenting with low back and abdominal pain. Patient was evaluated in the ED yesterday, with a CTA negative for PE and chest pathology. He states his pain remains over the low back that radiates to the RLQ. Endorses some relief with Tylenol. Denies fever, chills, chest pain, SOB, palpitation, dizziness, weakness, N, V, D , bladder and bowel problems, leg swelling, No sick contacts or travel. No new changes in medications. No suspicious food intake Allergies: NKA, NKDA Past Medical History: CAD (s/p stent) Social history: Lives with family. Former smoker. No ETOH or drug use. Surgical history: Stent Meds: as documented in EMR PMD: NOS (doctor in [facility]) - History Source History Provided By: Patient, Medical Record - Past Medical History Cardio/Vascular: Yes: CAD, Other (BMS in [facility] 6 years ago) - Alcohol/Substance Use Hx Alcohol Use: Yes (DAILY) History of Substance Use: reports: None - Smoking History Smoking history: Never smoked Have you smoked in the past 12 months: No If you are a former smoker, when did you quit?: 6 YEARS AGO - Social History ADL: Independent History of Recent Travel: No Home Medications - Allergies Allergies/Adverse Reactions: Allergies Allergy/AdvReac Type Severity Reaction Status Date / Time No Known Allergies Allergy Verified 05/02/19 12:15 - Home Medications Home Medications: Ambulatory Orders Atorvastatin Ca [Lipitor] 20 mg PO HS 05/02/19 Clopidogrel Bisulfate [Plavix] 75 mg PO DAILY 05/02/19 Nebivolol [Bystolic -] 5 mg PO DAILY 05/02/19 Review of Systems Findings/Remarks: r flank pain - Review of Systems Constitutional: reports: No Symptoms Eyes: reports: No Symptoms HENT: reports: No Symptoms Neck: reports: No Symptoms Cardiovascular: reports: No Symptoms Gastrointestinal: reports: No Symptoms Genitourinary: reports: No Symptoms Breasts: reports: No Symptoms Reported Musculoskeletal: reports: No Symptoms Integumentary: reports: No Symptoms Neurological: reports: No Symptoms Endocrine: reports: No Symptoms Hematology/Lymphatic: reports: No Symptoms Psychiatric: reports: No Symptoms Vital Signs: Vital Signs Temperature 98.6 F 07/03/19 06:00 Pulse Rate 75 05/03/19 06:00 Respiratory Rate 18 05/03/19 06:00 Blood Pressure 147/82 05/03/19 06:00 O2 Sat by Pulse Oximetry (%) 97 05/02/19 21:00 Constitutional: Yes: Well Nourished, No Distress, Calm Eyes: Yes: WNL, Conjunctiva Clear, EOM Intact HENT: Yes: WNL, Atraumatic, Normocephalic Neck: Yes: WNL, Supple, Trachea Midline Respiratory: Yes: WNL, Regular, CTA Bilaterally Gastrointestinal: Yes: WNL, Normal Bowel Sounds Renal/: Yes: WNL Cardiovascular: Yes: WNL, Regular Rate and Rhythm Musculoskeletal: Yes: WNL Extremities: Yes: WNL Integumentary: Yes: WNL Neurological: Yes: WNL, Alert, Oriented ...Motor Strength: WNL Psychiatric: Yes: WNL, Alert, Oriented - Other Data Labs, Other Data: CBC, BMP 05/03/19 06:20 05/03/19 06:20 INR, PTT INR 1.01 (0.83-1.09) 05/03/19 06:20 Troponin, BNP 05/02/19 12:39 Troponin I < 0.02 Troponin, BNP 05/02/19 12:39 Troponin I < 0.02 Imaging - Results Chest X-ray: Pending EKG: Image Reviewed (sr rbbb lafd old ant septal mi rep abn lateral ischemia) Problem List - Problems (1) Abdominal pain Code(s): R10.9 - UNSPECIFIED ABDOMINAL PAIN (2) Infarction of kidney Code(s): N28.0 - ISCHEMIA AND INFARCTION OF KIDNEY (3) Prophylactic measure Code(s): Z29.9 - ENCOUNTER FOR PROPHYLACTIC MEASURES, UNSPECIFIED (4) Pain Code(s): R52 - PAIN, UNSPECIFIED Assessment/Plan Acute presentation of a partial renal infarct suggests an embolic source. ashd s/p ant apical mi s/p pci 5-6 years ago echo showed severely reduced ef 35% apical dyskinesis possible apical thrombus - most likely source of emboli htn hlp Plan ac as per vascular surgery will need long ter ac with coumadin - cont iv heparin for now restart Plavix- uncleare why patient is on Plavix not on ASA - patient and family do not know 24 holter to r/o af telemetry will need ischemic workup when stable and evaluation for an ICD will start low dose mai I if renal function remains stable over next few days. will f/u
--- NOTE | 2019-05-03 12:10 | ECHO ---
Name: MARY WILKERSON Exam:Adult Echocardiogram Study Date: 05/03/2019 09:30 AM Age: 69 yrs Reason For Study: RENAL ARTERY INFARCT POSSIBLE CARDIAC Height: 65 in Weight: 154 lb BSA: 1.8 m2 MMode/2D Measurements & Calculations IVSd: 0.85 cm Ao root diam: 2.3 cm LVIDd: 6.1 cm LVIDs: 4.6 cm LVPWd: 0.93 cm EDV(Teich): 188.1 ml LVOT diam: 2.2 cm ESV(Teich): 99.7 ml Doppler Measurements & Calculations MV E max demond: 58.2 cm/sec Ao V2 max: 147.4 cm/sec MV A max demond: 96.7 cm/sec Ao max P.7 mmHg MV E/A: 0.60 Ao V2 mean: 109.6 cm/sec MV dec time: 0.21 sec Ao mean P.5 mmHg Ao V2 VTI: 28.6 cm ADAMARIS(I,D): 1.1 cm2 AI P1/2t: 609.5 msec ADAMARIS(V,D): 1.2 cm2 AI max demond: 419.5 cm/sec LV V1 max P.98 mmHg AI max P.4 mmHg LV V1 mean P.53 mmHg AI dec slope: 201.6 cm/sec2 LV V1 max: 49.3 cm/sec LV V1 mean: 34.9 cm/sec LV V1 VTI: 8.3 cm MR max demond: 384.8 cm/sec SV(LVOT): 30.7 ml MR max P.2 mmHg Med Peak E' Demond: 4.4 cm/sec Med E/e': 13.3 Lat Peak E' Demond: 3.2 cm/sec Lat E/e': 18.1 Procedure A two-dimensional transthoracic echocardiogram with color flow and Doppler was performed. Left Ventricle The left ventricle is mildly dilated. Left ventricular systolic function is severely reduced. E/A rev ersal consistent with but not diagnostic of poor LV compliance. There is severe global hypokinesis of the l eft ventricle. There is apical septal wall akinesis. There is apical dyskinesis. There is apical anterior wall akinesis. The left ventricular apex is not well visualized. Thrombus can not be excluded. Right Ventricle The right ventricle is normal in size and function. Atria Normal left and right atrial size and function. Mitral Valve There is mild mitral valve thickening. There is no mitral valve stenosis. There is mild to moderate m itral regurgitation. Tricuspid Valve There is mild tricuspid valve thickening. There is no tricuspid stenosis. There was insufficient TR d etected to calculate RV systolic pressure. Aortic Valve The aortic valve is normal in structure and function. No hemodynamically significant valvular aortic stenosis. Mild aortic regurgitation. Pulmonic Valve The pulmonic valve is not well visualized. There is no pulmonic valvular stenosis. Trace to mild pulm onic valvular regurgitation. Great Vessels The aortic root is normal size. Pericardium/Pleura There is no pericardial effusion. Interpretation Summary The left ventricle is mildly dilated. Mild aortic regurgitation. E/A reversal consistent with but not diagnostic of poor LV compliance There is mild to moderate mitral regurgitation. There is severe global hypokinesis of the left ventricle. Left ventricular systolic function is severely reduced. There is apical septal wall akinesis. There is apical dyskinesis. There is apical anterior wall akinesis. The left ventricular apex is not well visualized. Thrombus can not be excluded. There was insufficient TR detected to calculate RV systolic pressure. MD Travis Vaughan 05/03/2019 12:09 PM
[2019-05-03] MEDS ORDERED: ENALAPRIL MALEATE 2.5 MG TABLET (FP) PO SCH (13:30)
[2019-05-03] MEDS: HEPARIN - 25,000 UNIT in SODIUM CHLORIDE 495 ML IV SCH ×2 (13:59→16:59)
--- NOTE | 2019-05-03 14:19 | PN ---
Progress Note (short form) - Note Progress Note: Pts family at bedside to assist with interpretation. He has some complaints of mild right sided pain. No further vomiting noted, occasional nausea. Vital Signs Period Temp Pulse Resp BP Sys/Bland Pulse Ox Last 24 Hr 98.0 F-99.3 F 70-80 12-19 138-154/64-95 97-97 ABD: Soft, non-distended, mild RUQ pain. No flank pain. INR, PTT INR 1.01 (0.83-1.09) 05/03/19 06:20 Laboratory Tests 05/03/19 05/03/19 06:20 06:20 WBC 9.7 Hgb 14.5 Hct 42.5 Plt Count 160 Sodium 136 Potassium 3.7 Chloride 105 Carbon Dioxide 23 Anion Gap 8 BUN 7.8 Creatinine 0.8 Echo: apical dyskinesis possible thrombus A/P: 69 yo male with partial renal infarct, apical dyskinesis and possible thrombus Plan for transfer the patient to tele Case D/w Dr. Love, CTA cancelled pt with above finding on ECHO Recommend to continue IV heparin and transition to coumadin
[2019-05-03] MEDS: CLOPIDOGREL BISULFATE 75 MG TABLET (FP) PO SCH (16:59)
[2019-05-03] MEDS ORDERED: WARFARIN NA 7.5 MG TABLET (FP) PO ONE (18:00)
[2019-05-03] MEDS: ATORVASTATIN CA 20 MG TABLET (FP) PO SCH (21:11)
--- NOTE | 2019-05-04 06:57 | PN ---
Progress Note (short form) - Note Progress Note: Chief Complaint: Events Noted, notes reviewed, resting in bed, denies any chest pain or dyspnea, Heparin infusion in situ bridging to Coumadin, patient's son at the bedside History of Present Illness: Seen and examined on telemetry. Events Noted, notes reviewed, resting in bed, denies any chest pain or dyspnea, Heparin infusion in situ bridging to Coumadin , patient's son at the bedside - Current Medication List Current Medications Atorvastatin Calcium (Lipitor -) 20 mg PO HS [facility] Last Admin: 05/03/19 21:11 Dose: 20 mg Clopidogrel Bisulfate (Plavix -) 75 mg PO DAILY [facility] Last Admin: 05/03/19 16:59 Dose: 75 mg Enalapril Maleate (Vasotec -) 2.5 mg PO DAILY [facility] Last Admin: 05/03/19 17:00 Dose: Not Given Heparin Sodium (Porcine) (Heparin -) 1,000 unit IVPUSH PRN PRN PRN Reason: Heparin Heparin Sodium (Porcine) (Heparin -) 5,000 unit IVPUSH PRN PRN PRN Reason: Heparin Heparin Sodium (Porcine) 25, (000 unit/ Sodium Chloride) 500 mls @ 20 mls/hr IV TITR MAZIN; Protocol Last Admin: 05/03/19 16:59 Dose: Not Given Sodium Chloride (Normal Saline -) 1,000 mls @ 100 mls/hr IV ASDIR [facility] Last Admin: 05/03/19 22:49 Dose: 100 mls/hr Nebivolol (Bystolic -) 5 mg PO DAILY [facility] Last Admin: 05/03/19 11:14 Dose: 5 mg Review of Systems Cardiovascular: As noted above Respiratory: denies Cough or Sputum Production Gastrointestinal: denies: Nausea, Vomiting, Diarrhea, Constipation or Abdominal Discomfort Musculoskeletal: No Symptoms Reported - Objective Vital Signs: Last Vital Signs Temp Pulse Resp BP Pulse Ox 98.0 F 78 18 146/75 95 05/04/19 02:00 05/04/19 02:00 05/04/19 02:00 05/04/19 02:00 05/03/19 21:00 Intake & Output 05/01/19 05/02/19 05/03/19 05/04/19 23:59 23:59 23:59 23:59 Intake Total 0 2990 Output Total 2 1 Balance -2 2989 Weight 154 lb 5.177 oz 154 lb 5.177 oz Constitutional: No Distress, Calm Neck: Supple Negative JVD No Bruit Respiratory: Clear to A&P Cardiovascular: S1 S2 Regular Rate Rhythm Gastrointestinal: Soft Benign Normal Bowel Sounds Ext: Negative Edema Labs: CBC, BMP 05/04/19 06:43 05/04/19 06:43 Hepatic Panel Total Bilirubin 1.3 mg/dL (0.2-1) H 05/04/19 06:43 AST 68 U/L (15-37) H 05/04/19 06:43 ALT 51 U/L (13-61) 05/04/19 06:43 Alkaline Phosphatase 48 U/L (45-117) 05/04/19 06:43 Albumin 3.0 g/dl (3.4-5.0) L 05/04/19 06:43 INR, PTT INR 1.14 (0.83-1.09) H 05/04/19 06:43 ASSESSMENT: 1. 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 CAD post AZ/PCI angina pectoris 3. LV systolic dysfunction with clinical class 0 NYHA classification LV failure 4. Possible LV apical thrombus 5. HTN 6. Hypercholesterolemia PLAN: 1. Continue Bystolic 2. Continue Vasotec and titrate dosage as tolerated and as needed 3. Continue Lipitor 4. Continue Plavix with caution 5. Continue Heparin and Coumadin bridging as per INR 6. Ideally contrast/Definity echo +/- RICARDO for further evaluation of the above noted possible LV apical thrombus 7. Additional evaluation of ischemic burden and reassessment of LVEF prior to planning further intervention including possible prophylactic ICD as outpatient , consider Life- Vest on D/C- limiting factor might be insurance coverage Claudia Ferreira M.D.
[2019-05-04 07:19] LABS: HEMATOCRIT 41.3 % (35.4-49); HEMOGLOBIN 14.2 GM/dL (11.7-16.9); MCH 31.6 pg (25.7-33.7); MCHC 34.3 g/dl (32.0-35.9); MEAN CELL VOLUME 92.2 fl (80-96); MEAN PLT VOLUME 8.7 fl (7.5-11.1); RBC 4.48 M/mm3 (4.00-5.60); RDW 12.8 % (11.9-15.9); WHITE BLOOD COUNT 9.5 K/mm3 (4.0-10.0)
[2019-05-04 07:33] LABS: INR 1.14 (0.83-1.09); PROTHROMBIN TIME (PATIENT) 13.5 SEC (9.7-13.0)
[2019-05-04 07:43] LABS: BILIRUBIN,TOTAL 1.3 mg/dL (0.2-1); CREATININE 0.9 mg/dL (0.55-1.3); POTASSIUM 3.8 mmol/L (3.5-5.1); TOT PROT 6.4 g/dl (6.4-8.2)
[2019-05-04 08:10] LABS: PLATELET COUNT 146 K/MM3 (134-434)
--- NOTE | 2019-05-04 09:14 | PN ---
Progress Note, Physician Chief Complaint: via interpretation by son mild right flank pain persists History of Present Illness: right flank, RLQ abdominal pain x 1 day - Current Medication List Current Medications: Active Medications Atorvastatin Calcium (Lipitor -) 20 mg PO HS [facility] Last Admin: 05/03/19 21:11 Dose: 20 mg Clopidogrel Bisulfate (Plavix -) 75 mg PO DAILY [facility] Last Admin: 05/03/19 16:59 Dose: 75 mg Enalapril Maleate (Vasotec -) 2.5 mg PO DAILY [facility] Last Admin: 05/03/19 17:00 Dose: Not Given Heparin Sodium (Porcine) (Heparin -) 1,000 unit IVPUSH PRN PRN PRN Reason: Heparin Heparin Sodium (Porcine) (Heparin -) 5,000 unit IVPUSH PRN PRN PRN Reason: Heparin Heparin Sodium (Porcine) 25, (000 unit/ Sodium Chloride) 500 mls @ 20 mls/hr IV TITR MAZIN; Protocol Last Admin: 05/03/19 16:59 Dose: Not Given Sodium Chloride (Normal Saline -) 1,000 mls @ 100 mls/hr IV ASDIR [facility] Last Admin: 05/03/19 22:49 Dose: 100 mls/hr Nebivolol (Bystolic -) 5 mg PO DAILY [facility] Last Admin: 05/03/19 11:14 Dose: 5 mg - Objective Vital Signs: Vital Signs Temperature 97.8 F 05/04/19 06:00 Pulse Rate 77 05/04/19 06:00 Respiratory Rate 18 05/04/19 06:00 Blood Pressure 135/73 05/04/19 06:00 O2 Sat by Pulse Oximetry (%) 95 05/03/19 21:00 Constitutional: Yes: Well Nourished, No Distress, Calm Eyes: Yes: WNL, Conjunctiva Clear, EOM Intact HENT: Yes: WNL, Atraumatic, Normocephalic Neck: Yes: WNL, Supple, Trachea Midline Cardiovascular: Yes: WNL, Regular Rate and Rhythm Respiratory: Yes: WNL, Regular, CTA Bilaterally Gastrointestinal: Yes: WNL, Normal Bowel Sounds, Soft Genitourinary: Yes: WNL (right flank pain) Musculoskeletal: Yes: WNL Extremities: Yes: WNL Edema: No Peripheral Pulses WNL: Yes Integumentary: Yes: WNL Neurological: Yes: WNL, Alert, Oriented ...Motor Strength: WNL Psychiatric: Yes: WNL, Alert, Oriented Labs: CBC, BMP 05/04/19 06:43 05/04/19 06:43 INR, PTT INR 1.14 (0.83-1.09) H 05/04/19 06:43 - ....Imaging Cat Scan: Report Reviewed (CT scan revealed partial right renal infarct.) Other: Report Reviewed (TTE echo showed severely reduced ef 35% apical dyskinesis possible apical thrombus - most likely source of emboli)) Problem List - Problems (1) Abdominal pain Assessment/Plan: CT abd/pelvis revealed rt renal infarction/hypodensity, large area. Code(s): R10.9 - UNSPECIFIED ABDOMINAL PAIN (2) Infarction of kidney Assessment/Plan: Dr Love following patient will need terminal operations manager ac with coumadin - cont IV heparin for now according to protocol restart Plavix 75 mg will monitor for s/s of bleeding monitor PTT Code(s): N28.0 - ISCHEMIA AND INFARCTION OF KIDNEY (3) Prophylactic measure Assessment/Plan: FEN may resume cardiac diet monitor electrolytes DVT Prohp on heparin gtt as per protocol eventually transition to coumadin Dispo maintain as inpatient on tele full code discharge planning Code(s): Z29.9 - ENCOUNTER FOR PROPHYLACTIC MEASURES, UNSPECIFIED (4) Left ventricular dysfunction with reduced left ventricular function Assessment/Plan: TTE showed severely reduced EF 35% apical dyskinesis possible apical thrombus - most likely source of emboli cardiology note appreciate maintain on telemetry will need further w/u for possible AICD if Cr stabilizes will start on low dose SOFIE-I to preserve LV fx tomorrow will discuss with SW the possibilty if Life Vest on DC-however pt is self pay Code(s): I51.9 - HEART DISEASE, UNSPECIFIED Visit type - Emergency Visit Emergency Visit: Yes ED Registration Date: 05/02/19 Care time: The patient presented to the Emergency Department on the above date and was hospitalized for further evaluation of their emergent condition. - New Patient This patient is new to me today: No - Critical Care Critical Care patient: No - Discharge Referral Referred to [facility] Med P.C.: No
[2019-05-04] MEDS ORDERED: ENALAPRIL MALEATE 2.5 MG TABLET (FP) PO SCH (09:32)
[2019-05-04] MEDS: CLOPIDOGREL BISULFATE 75 MG TABLET (FP) PO SCH (10:00)
[2019-05-04] MEDS: ENALAPRIL MALEATE 2.5 MG TABLET (FP) PO SCH (10:00)
[2019-05-04] MEDS: NEBIVOLOL 5 MG TABLET (FP) PO SCH (10:01)
--- NOTE | 2019-05-04 10:45 | CON.GU ---
Consult Consult Specialty:: Referred by:: Ivan Reason for Consultation:: renal infarct - History of Present Illness Chief Complaint: renal infarct History of Present Illness: 69 year old male with right sided flank pain since 05/01/19. No prior history. No voiding complaints. CAT scan revealed partial right renal infarct. Cardiology w/u reveals potential source of emboli. danna is on anticoagulation. He is feeling better. - History Source History Provided By: Patient, Family Member Limitations to Obtaining History: Language Barrier - Past Medical History Cardio/Vascular: Yes: CAD, Other (BMS in [facility] 6 years ago) Renal/: No: Renal Failure, Renal Inusuff, BPH, Cancer, Hematuria, Hemodialysis , Neurogenic Bladder, Renal Calculi, UTI - Alcohol/Substance Use Hx Alcohol Use: Yes (DAILY) History of Substance Use: reports: None - Smoking History Smoking history: Never smoked Have you smoked in the past 12 months: No If you are a former smoker, when did you quit?: 6 YEARS AGO - Social History ADL: Independent History of Recent Travel: No Home Medications - Allergies Allergies/Adverse Reactions: Allergies Allergy/AdvReac Type Severity Reaction Status Date / Time No Known Allergies Allergy Verified 05/02/19 12:15 - Home Medications Home Medications: Ambulatory Orders Atorvastatin Ca [Lipitor] 20 mg PO HS 05/02/19 Clopidogrel Bisulfate [Plavix] 75 mg PO DAILY 05/02/19 Nebivolol [Bystolic -] 5 mg PO DAILY 05/02/19 Review of Systems - Review of Systems Genitourinary: reports: Flank Pain Physical Exam- Vital Signs: Vital Signs Temperature 97.8 F 05/04/19 06:00 Pulse Rate 77 05/04/19 06:00 Respiratory Rate 18 05/04/19 06:00 Blood Pressure 135/73 05/04/19 06:00 O2 Sat by Pulse Oximetry (%) 95 05/03/19 21:00 Renal/: No: Bladder Distention, CVA Tenderness - Left, CVA Tenderness - Right , Lucas Present, Hematuria Labs: CBC, BMP 05/04/19 06:43 05/04/19 06:43 Imaging - Results Cat Scan: Report Reviewed Problem List - Problems (1) Infarction of kidney Assessment/Plan: agree with recs for A/C therapy. Code(s): N28.0 - ISCHEMIA AND INFARCTION OF KIDNEY
[2019-05-04] MEDS: HEPARIN - 25,000 UNIT in SODIUM CHLORIDE 495 ML IV SCH (18:20)
[2019-05-04] MEDS: ATORVASTATIN CA 20 MG TABLET (FP) PO SCH (21:19)
[2019-05-04] MEDS: SODIUM CHLORIDE 1,000 ML IV SCH (21:19)
--- NOTE | 2019-05-05 07:54 | PN ---
Progress Note, Physician Chief Complaint: via interpretation by son mild right flank pain persists History of Present Illness: right flank, RLQ abdominal pain x 1 day - Current Medication List Current Medications: Active Medications Atorvastatin Calcium (Lipitor -) 20 mg PO HS [facility] Last Admin: 05/04/19 21:19 Dose: 20 mg Clopidogrel Bisulfate (Plavix -) 75 mg PO DAILY [facility] Last Admin: 05/04/19 10:00 Dose: 75 mg Enalapril Maleate (Vasotec -) 5 mg PO DAILY [facility] Last Admin: 05/04/19 10:00 Dose: 5 mg Heparin Sodium (Porcine) (Heparin -) 1,000 unit IVPUSH PRN PRN PRN Reason: Heparin Heparin Sodium (Porcine) (Heparin -) 5,000 unit IVPUSH PRN PRN PRN Reason: Heparin Heparin Sodium (Porcine) 25, (000 unit/ Sodium Chloride) 500 mls @ 20 mls/hr IV TITR MAZIN; Protocol Last Admin: 05/04/19 18:20 Dose: Not Given Sodium Chloride (Normal Saline -) 1,000 mls @ 100 mls/hr IV ASDIR [facility] Last Admin: 05/04/19 21:19 Dose: Not Given Nebivolol (Bystolic -) 5 mg PO DAILY [facility] Last Admin: 05/04/19 10:01 Dose: 5 mg Warfarin Sodium (Coumadin -) 7.5 mg PO ONCE@1800 ONE Stop: 05/05/19 18:01 - Objective Vital Signs: Vital Signs Temperature 99.1 F 05/05/19 05:00 Pulse Rate 100 H 05/05/19 05:00 Respiratory Rate 20 05/05/19 05:00 Blood Pressure 134/94 05/05/19 05:00 O2 Sat by Pulse Oximetry (%) 94 L 05/04/19 20:25 Constitutional: Yes: Well Nourished, No Distress, Calm Eyes: Yes: WNL, Conjunctiva Clear, EOM Intact HENT: Yes: WNL, Atraumatic, Normocephalic Neck: Yes: WNL, Supple, Trachea Midline Cardiovascular: Yes: WNL, Regular Rate and Rhythm Respiratory: Yes: WNL, Regular, CTA Bilaterally Gastrointestinal: Yes: WNL, Normal Bowel Sounds, Soft, Tenderness (to right flank) ...Rectal Exam: Yes: Deferred Genitourinary: Yes: WNL Breast(s): Yes: WNL Musculoskeletal: Yes: WNL Extremities: Yes: WNL Edema: No Peripheral Pulses WNL: Yes Integumentary: Yes: WNL Neurological: Yes: WNL, Alert, Oriented ...Motor Strength: WNL Psychiatric: Yes: WNL, Alert, Oriented Labs: INR, PTT INR 1.14 (0.83-1.09) H 05/04/19 06:43 - ....Imaging Cat Scan: Report Reviewed (CT:(CT scan revealed partial right renal infarct.) Other: Report Reviewed (TTE echo showed severely reduced ef 35% apical dyskinesis possible apical thrombus - most likely source of emboli) Problem List - Problems (1) Abdominal pain Assessment/Plan: CT abd/pelvis revealed rt renal infarction/hypodensity, large area. Code(s): R10.9 - UNSPECIFIED ABDOMINAL PAIN (2) Infarction of kidney Assessment/Plan: Dr Love following patient will need ocean transportation intermediary ac with coumadin - cont IV heparin for now according to protocol doed coumadin 7.5mg x 2 days and INR remains subtherapeutic restart Plavix 75 mg will monitor for s/s of bleeding monitor PTT Code(s): N28.0 - ISCHEMIA AND INFARCTION OF KIDNEY (3) Prophylactic measure Assessment/Plan: FEN may resume cardiac diet after testing monitor electrolytes DVT Prohp on heparin gtt as per protocol eventually transition to coumadin Dispo maintain as inpatient on tele full code discharge planning Code(s): Z29.9 - ENCOUNTER FOR PROPHYLACTIC MEASURES, UNSPECIFIED (4) Left ventricular dysfunction with reduced left ventricular function Assessment/Plan: TTE showed severely reduced EF 35% apical dyskinesis possible apical thrombus - most likely source of emboli cardiology note appreciate Lexiscan ordered and pending RICARDO scheduled-cn not be done today because pt will receive NM dye for ST-will schedule LUMA maintain on telemetry will need further w/u for possible AICD if Cr stabilizes will start on low dose SOFIE-I to preserve LV fx tomorrow will discuss with SW the possibilty of Life Vest on DC-however pt is self pay Code(s): I51.9 - HEART DISEASE, UNSPECIFIED (5) Hypomagnesemia Assessment/Plan: magnesium level 1.4-2G IV to be given Code(s): E83.42 - HYPOMAGNESEMIA Visit type - Emergency Visit Emergency Visit: Yes ED Registration Date: 05/02/19 Care time: The patient presented to the Emergency Department on the above date and was hospitalized for further evaluation of their emergent condition. - New Patient This patient is new to me today: No - Critical Care Critical Care patient: No - Discharge Referral [facility] Med [facility].C[facility] No
[2019-05-05 08:12] LABS: HEMATOCRIT 38.7 % (35.4-49); HEMOGLOBIN 13.2 GM/dL (11.7-16.9); MCH 31.7 pg (25.7-33.7); MCHC 34.1 g/dl (32.0-35.9); MEAN CELL VOLUME 92.9 fl (80-96); MEAN PLT VOLUME 8.8 fl (7.5-11.1); PLATELET COUNT 142 K/MM3 (134-434); RBC 4.17 M/mm3 (4.00-5.60); RDW 12.6 % (11.9-15.9); WHITE BLOOD COUNT 7.8 K/mm3 (4.0-10.0)
[2019-05-05 08:38] LABS: ALBUMIN 2.9 g/dl (3.4-5.0); ALK PHOS 48 U/L (45-117); ANION GAP 5 MMOL/L (8-16); BILIRUBIN,TOTAL 0.8 mg/dL (0.2-1); BLOOD UREA NITROGEN 8.7 mg/dL (7-18); CHLORIDE 105 mmol/L (98-107); CO2 27 mmol/L (21-32); CREATININE 0.9 mg/dL (0.55-1.3); GLUCOSE,RANDOM 89 mg/dL (74-106); MAGNESIUM 1.4 mg/dL (1.8-2.4); POTASSIUM 3.9 mmol/L (3.5-5.1); SGOT/AST 40 U/L (15-37); SGPT/ALT 36 U/L (13-61); SODIUM 137 mmol/L (136-145); TOT PROT 6.2 g/dl (6.4-8.2)
[2019-05-05 08:46] LABS: INR 1.19 (0.83-1.09); PROTHROMBIN TIME (PATIENT) 14.1 SEC (9.7-13.0)
[2019-05-05 08:49] LABS: ACTIVATED PTT 49.2 SECONDS (25.2-36.5)
[2019-05-05] MEDS: HEPARIN NA (PORCINE) 5,000 UNITS/ML 1ML VIAL IVPUSH PRN (08:58)
[2019-05-05] MEDS ORDERED: MAGNESIUM SULF 50% (8.12 MEQ/2 ML-1 GM VIAL) IVPB ONE (09:26)
[2019-05-05] MEDS: NEBIVOLOL 5 MG TABLET (FP) PO SCH (10:21)
[2019-05-05] MEDS: CLOPIDOGREL BISULFATE 75 MG TABLET (FP) PO SCH (10:21)
[2019-05-05] MEDS: ENALAPRIL MALEATE 2.5 MG TABLET (FP) PO SCH (10:21)
[2019-05-05] MEDS ORDERED: REGADENOSON 0.4 MG/5 ML PRE-FILLED SYRINGE IVPUSH ONE ×2 (11:00→13:44)
[2019-05-05] MEDS ORDERED: ACETAMINOPHEN 1000 MG/100 ML VIAL (NON FORMULARY) IVPB ONE (11:28)
--- NOTE | 2019-05-05 11:57 | PN ---
Progress Note, Physician History of Present Illness: 69 y/o male, with PMH of CAD (s/p stent 5-6 years ago), presenting with low back and abdominal pain. Patient was evaluated in the ED yesterday, with a CTA negative for PE and chest pathology. He states his pain remains over the low back that radiates to the RLQ. Endorses some relief with Tylenol. Denies fever, chills, chest pain, SOB, palpitation, dizziness, weakness, N, V, D , bladder and bowel problems, leg swelling, No sick contacts or travel. No new changes in medications. No suspicious food intake Allergies: NKA, NKDA Past Medical History: CAD (s/p stent) Social history: Lives with family. Former smoker. No ETOH or drug use. Surgical history: Stent Meds: as documented in EMR PMD: NOS (doctor in [facility]) - Current Medication List Current Medications: Active Medications Atorvastatin Calcium (Lipitor -) 20 mg PO HS [facility] Last Admin: 05/04/19 21:19 Dose: 20 mg Clopidogrel Bisulfate (Plavix -) 75 mg PO DAILY [facility] Last Admin: 05/05/19 10:21 Dose: 75 mg Enalapril Maleate (Vasotec -) 5 mg PO DAILY [facility] Last Admin: 05/05/19 10:21 Dose: 5 mg Heparin Sodium (Porcine) (Heparin -) 1,000 unit IVPUSH PRN PRN PRN Reason: Heparin Last Admin: 05/05/19 08:58 Dose: 1,000 unit Heparin Sodium (Porcine) (Heparin -) 5,000 unit IVPUSH PRN PRN PRN Reason: Heparin Heparin Sodium (Porcine) 25, (000 unit/ Sodium Chloride) 500 mls @ 20 mls/hr IV TITR MAZIN; Protocol Last Titration: 05/05/19 08:55 Dose: 1,200 unit/hr, 24 mls/hr Sodium Chloride (Normal Saline -) 1,000 mls @ 100 mls/hr IV ASDIR [facility] Last Admin: 05/04/19 21:19 Dose: Not Given Nebivolol (Bystolic -) 5 mg PO DAILY [facility] Last Admin: 05/05/19 10:21 Dose: 5 mg Warfarin Sodium (Coumadin -) 7.5 mg PO ONCE@1800 ONE Stop: 05/05/19 18:01 - Objective Vital Signs: Vital Signs Temperature 99.1 F 07/05/19 05:00 Pulse Rate 100 H 05/05/19 05:00 Respiratory Rate 20 05/05/19 05:00 Blood Pressure 134/94 05/05/19 05:00 O2 Sat by Pulse Oximetry (%) 94 L 05/04/19 20:25 Eyes: Yes: WNL, Conjunctiva Clear, EOM Intact HENT: Yes: WNL, Atraumatic, Normocephalic Neck: Yes: WNL, Supple, Trachea Midline Cardiovascular: Yes: WNL, Regular Rate and Rhythm Respiratory: Yes: WNL, Regular, CTA Bilaterally Gastrointestinal: Yes: WNL, Normal Bowel Sounds Genitourinary: Yes: WNL Musculoskeletal: Yes: WNL Extremities: Yes: WNL Edema: No Integumentary: Yes: WNL Neurological: Yes: WNL, Alert, Oriented ...Motor Strength: WNL Psychiatric: Yes: WNL Labs: CBC, BMP 05/05/19 07:15 05/05/19 07:15 INR, PTT INR 1.19 (0.83-1.09) H 05/05/19 07:15 Problem List - Problems (1) Abdominal pain Code(s): R10.9 - UNSPECIFIED ABDOMINAL PAIN (2) Infarction of kidney Code(s): N28.0 - ISCHEMIA AND INFARCTION OF KIDNEY (3) Prophylactic measure Code(s): Z29.9 - ENCOUNTER FOR PROPHYLACTIC MEASURES, UNSPECIFIED (4) Pain Code(s): R52 - PAIN, UNSPECIFIED Assessment/Plan Acute presentation of a partial renal infarct suggests an embolic source. ashd s/p ant apical mi s/p pci 5-6 years ago echo showed severely reduced ef 35% apical dyskinesis possible apical thrombus - most likely source of emboli htn hlp Plan ac as per vascular surgery will need long ter ac with coumadin - cont iv heparin for now until INR above 2 restart Plavix- uncleare why patient is on Plavix not on ASA - patient and family do not know 24 holter to r/o af telemetry Lexiscan mibi to r/o ischemia cont mai I May need a life west prior to d/c will f/u
[2019-05-05] MEDS ORDERED: LIDOCAINE VISCOUS 2% ORAL/TOP 20 ML UNIT-DOSE CUP ONE ×2 (13:00→13:01)
--- NOTE | 2019-05-05 14:43 | HOL ---
Hook-up date: 2019-05-03 14:46:00 Duration: 24:00:00 Test Indications: R/O AF,PT WITH EMBOLIC EVENT Medications: [id number] QRS complexes 168 Ventricular ectopics which represent <1 % of total QRS comp. 155 Supraventricular ectopics which represent <1 % of total QRS comp. * Paced QRS complexs which represent % of total QRS comp. * % of Time Classified as Noise VENTRICULAR ECTOPY 168 Isolated 0 Bigeminal Cycles 0 Couplets 0 Runs 0 Beats in Runs * Beats LONGEST at * BPM at :: -- * Beats FASTEST at * BPM at :: -- SUPRAVENTRICULAR ECTOPY 145 Isolated 3 Couplets 1 Runs 4 Beats in Runs 4 Beats LONGEST at 157 BPM at 00:05:37 2019-05-04 4 Beats FASTEST at 157 BPM at 00:05:37 2019-05-04 HEART RATES 60 MIN at 14:27:14 2019-05-04 74 AVG 96 MAX at 02:20:40 2019-05-04 LONGEST RR 1.512 secs at 22:05:07 2019-05-03 Underlying rhythm is normal sinus. Rare ventricular premature contractions. Rare atrial premature contractions and occasional atrial couplets. One short, self limited run of PSVT, likely atrial tachycardia at 157bpm lasting 4 beats. No significant pauses or evidence of atrial fibrillation. No diary entries were submitted. Confirmed by EDUARDO LUGO, PEPITO ([id number]) on 05/05/2019 2:42:52 PM Referred By: BEE MURPHY DR Overread By: PEPITO CLARK MD
[2019-05-05] MEDS ORDERED: PT OWN MED DRAWER 7, Y5N ONE (16:15)
[2019-05-05] MEDS: HEPARIN - 25,000 UNIT in SODIUM CHLORIDE 495 ML IV SCH (16:18)
[2019-05-05] MEDS: SPIRONOLACTONE 25 MG TABLET (FP) PO SCH (16:19)
[2019-05-05] MEDS ORDERED: WARFARIN NA 7.5 MG TABLET (FP) PO ONE ×2 (18:00)
[2019-05-05] MEDS: SODIUM CHLORIDE 1,000 ML IV SCH (19:22)
[2019-05-05] MEDS: ATORVASTATIN CA 20 MG TABLET (FP) PO SCH (21:06)
[2019-05-05] MEDS ORDERED: CARVEDILOL 6.25 MG TABLET (FP) PO SCH (22:00)
--- NOTE | 2019-05-06 06:57 | PN ---
Progress Note (short form) - Note Progress Note: Coverage for Dr. Vaughan Chief Complaint: Events Noted, notes reviewed, resting in bed, denies any chest pain or dyspnea, Heparin infusion in situ bridging to Coumadin, patient's son at the bedside History of Present Illness: Seen and examined on telemetry. Events Noted, notes reviewed, resting in bed, denies any chest pain or dyspnea, Heparin infusion in situ bridging to Coumadin , patient's son at the bedside Plan as per primary cardiology team, RICARDO for evaluation of LV thrombus, Life- Vest upon D/C home pending prophylactic ICD implant, issue is lack of insurance coverage which was discussed with the son - Current Medication List Current Medications Atorvastatin Calcium (Lipitor -) 20 mg PO HS REPLACED BY [facility] Last Admin: 05/05/19 21:06 Dose: 20 mg Carvedilol (Coreg -) 6.25 mg PO BID REPLACED BY [facility] Last Admin: 05/05/19 21:06 Dose: 6.25 mg Clopidogrel Bisulfate (Plavix -) 75 mg PO DAILY REPLACED BY [facility] Last Admin: 05/05/19 10:21 Dose: 75 mg Enalapril Maleate (Vasotec -) 5 mg PO DAILY REPLACED BY [facility] Last Admin: 05/05/19 10:21 Dose: 5 mg Heparin Sodium (Porcine) (Heparin -) 1,000 unit IVPUSH PRN PRN PRN Reason: Heparin Last Admin: 05/05/19 08:58 Dose: 1,000 unit Heparin Sodium (Porcine) (Heparin -) 5,000 unit IVPUSH PRN PRN PRN Reason: Heparin Heparin Sodium (Porcine) 25, (000 unit/ Sodium Chloride) 500 mls @ 20 mls/hr IV TITR REPLACED BY [facility]; Protocol Last Admin: 05/05/19 16:18 Dose: 1,200 unit/hr, 24 mls/hr Spironolactone (Aldactone -) 25 mg PO DAILY REPLACED BY [facility] Last Admin: 05/05/19 16:19 Dose: 25 mg Review of Systems Cardiovascular: As noted above Respiratory: denies Cough or Sputum Production Gastrointestinal: denies: Nausea, Vomiting, Diarrhea, Constipation or Abdominal Discomfort Musculoskeletal: No Symptoms Reported - Objective Vital Signs: Last Vital Signs Temp Pulse Resp BP Pulse Ox 98.7 F 69 20 141/77 95 05/06/19 06:00 05/06/19 06:00 05/06/19 06:00 05/06/19 06:00 05/05/19 20:19 Intake & Output 05/03/19 05/04/19 05/05/19 05/06/19 23:59 23:59 23:59 23:59 Intake Total 2990 2988 480 168 Output Total 1 200 Balance 2989 2988 280 168 Weight 154 lb 5.177 oz 162 lb 2 oz 163 lb 161 lb 6.4 oz Constitutional: No Distress, Calm Neck: Supple Negative JVD No Bruit Respiratory: Clear to A&P Cardiovascular: S1 S2 Regular Rate Rhythm Gastrointestinal: Soft Benign Normal Bowel Sounds Ext: Negative Edema Labs: CBC, BMP 05/06/19 06:20 CBC, BMP 05/05/19 07:15 05/05/19 07:15 Hepatic Panel Total Bilirubin 0.8 mg/dL (0.2-1) 05/05/19 07:15 AST 40 U/L (15-37) H 05/05/19 07:15 ALT 36 U/L (13-61) 05/05/19 07:15 Alkaline Phosphatase 48 U/L (45-117) 05/05/19 07:15 Albumin 2.9 g/dl (3.4-5.0) L 05/05/19 07:15 INR, PTT INR 1.19 (0.83-1.09) H 05/05/19 07:15 ASSESSMENT: 1. 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 CAD post FL/PCI angina pectoris 3. LV systolic dysfunction with clinical class 0 NYHA classification LV failure 4. Possible LV apical thrombus, for further evaluation 5. HTN 6. Hypercholesterolemia PLAN: 1. Continue Coreg and titrate dosage as tolerated, hemodynamics permitting 2. Continue Vasotec and titrate dosage as tolerated, hemodynamics permitting 3. Continue Lipitor 4. Continue Aldactone 5. Continue Plavix with caution 6. Continue Heparin and Coumadin bridging as per INR 7. Plan to proceed with RICARDO for further evaluation of the above noted possible LV apical thrombus 8. Additional evaluation of ischemic burden and reassessment of LVEF prior to planning further intervention including possible prophylactic ICD as outpatient , Life- Vest upon D/C- as outlined limiting factor might be lack insurance coverage As noted above discussed in detail with the son who was at the bedside Claudia Ferreira M.D.
[2019-05-06 07:49] LABS: BASO % 0.7 % (0-2.0); EOS % 3.6 % (0-4.5); HEMATOCRIT 39.1 % (35.4-49); HEMOGLOBIN 13.3 GM/dL (11.7-16.9); LYMPH % 17.3 % (8-40); MCH 31.5 pg (25.7-33.7); MCHC 34.1 g/dl (32.0-35.9); MEAN CELL VOLUME 92.4 fl (80-96); MEAN PLT VOLUME 9.4 fl (7.5-11.1); MONO % 11.9 % (3.8-10.2); NEUT % 66.5 % (42.8-82.8); RBC 4.23 M/mm3 (4.00-5.60); RDW 12.2 % (11.9-15.9); WHITE BLOOD COUNT 6.7 K/mm3 (4.0-10.0)
[2019-05-06 08:31] LABS: ALBUMIN 2.8 g/dl (3.4-5.0); BILIRUBIN,TOTAL 0.8 mg/dL (0.2-1); BLOOD UREA NITROGEN 11.8 mg/dL (7-18); CALCIUM 8.2 mg/dL (8.5-10.1); CREATININE 0.9 mg/dL (0.55-1.3); MAGNESIUM 2.4 mg/dL (1.8-2.4); TOT PROT 6.4 g/dl (6.4-8.2)
[2019-05-06 08:46] LABS: PLATELET COUNT 168 K/MM3 (134-434)
--- NOTE | 2019-05-06 09:38 | PN ---
Progress Note, Physician Chief Complaint: Intermittent Flank Pain via interpretation from son History of Present Illness: 69 y/o male, with PMH of CAD (s/p stent 5-6 years ago), presented with low back and abdominal pain. Patient was evaluated in the ED on 05/02, with a CTA negative for PE and chest pathology. He stated his pain remains over the low back that radiates to the RLQ. Endorses some relief with Tylenol. Today PT lying in bed with no sign or symptoms of ditress. and son at bedside. PT speaks only Sami, son is the interpreter and translator. PT Denies fever, chills, chest pain, SOB, palpitation, dizziness, weakness, N, V, D, bladder and bowel problems, leg swelling. - Current Medication List Current Medications: Active Medications Atorvastatin Calcium (Lipitor -) 20 mg PO [facility] Last Admin: 05/05/19 21:06 Dose: 20 mg Carvedilol (Coreg -) 12.5 mg PO BID [facility] Clopidogrel Bisulfate (Plavix -) 75 mg PO DAILY [facility] Last Admin: 05/05/19 10:21 Dose: 75 mg Enalapril Maleate (Vasotec -) 5 mg PO BID [facility] Heparin Sodium (Porcine) (Heparin -) 1,000 unit IVPUSH PRN PRN PRN Reason: Heparin Last Admin: 05/05/19 08:58 Dose: 1,000 unit Heparin Sodium (Porcine) (Heparin -) 5,000 unit IVPUSH PRN PRN PRN Reason: Heparin Heparin Sodium (Porcine) 25, (000 unit/ Sodium Chloride) 500 mls @ 20 mls/hr IV TITR [facility]; Protocol Last Admin: 05/05/19 16:18 Dose: 1,200 unit/hr, 24 mls/hr Spironolactone (Aldactone -) 25 mg PO DAILY [facility] Last Admin: 05/05/19 16:19 Dose: 25 mg - Objective Vital Signs: Vital Signs Temperature 98.7 F 05/06/19 06:00 Pulse Rate 69 05/06/19 06:00 Respiratory Rate 20 05/06/19 06:00 Blood Pressure 141/77 05/06/19 06:00 O2 Sat by Pulse Oximetry (%) 95 05/05/19 20:19 Constitutional: Yes: Well Nourished, No Distress, Calm Eyes: Yes: WNL, Conjunctiva Clear, EOM Intact HENT: Yes: WNL, Atraumatic, Normocephalic Neck: Yes: WNL, Supple, Trachea Midline Cardiovascular: Yes: WNL, Regular Rate and Rhythm Respiratory: Yes: WNL, Regular, CTA Bilaterally Gastrointestinal: Yes: WNL, Normal Bowel Sounds, Soft ...Rectal Exam: Yes: Deferred Genitourinary: Yes: WNL Musculoskeletal: Yes: WNL Extremities: Yes: WNL Edema: No Peripheral Pulses WNL: Yes Integumentary: Yes: WNL Neurological: Yes: WNL, Alert, Oriented ...Motor Strength: WNL Psychiatric: Yes: WNL, Alert, Oriented Labs: CBC, BMP 05/06/19 06:20 05/06/19 06:20 INR, PTT INR 1.19 (0.83-1.09) H 05/05/19 07:15 - ....Imaging Chest X-ray: Report Reviewed ((CT scan revealed partial right renal infarct.)) X-ray: Report Reviewed Problem List - Problems (1) Abdominal pain Assessment/Plan: CT abd/pelvis revealed rt renal infarction/hypodensity, large area. Code(s): R10.9 - UNSPECIFIED ABDOMINAL PAIN Qualifiers: Abdominal location: right lower quadrant Qualified Code(s): R10.31 - Right lower quadrant pain (2) Hypomagnesemia Assessment/Plan: -Resolved Code(s): E83.42 - HYPOMAGNESEMIA (3) Infarction of kidney Assessment/Plan: Dr Love following patient -will need intermediate manager ac with coumadin - cont IV heparin for now according to protocol -coumadin 7.5mg x 3 days and INR remains subtherapeutic -restarted Plavix 75 mg -will monitor for s/s of bleeding -monitor PTT Code(s): N28.0 - ISCHEMIA AND INFARCTION OF KIDNEY (4) Left ventricular dysfunction with reduced left ventricular function Assessment/Plan: TTE showed severely reduced EF 35% apical dyskinesis possible apical thrombus - most likely source of emboli cardiology note appreciate Lexiscan-showed EF 17% maintain on telemetry will need further w/u for possible AICD Started on SOFIE-I to preserve LV fx Currently waiting info regarding the possibilty of Life Vest per Ángela Bateman NP on DC-however pt is self pay Code(s): I51.9 - HEART DISEASE, UNSPECIFIED (5) Prophylactic measure Assessment/Plan: FEN -may resume cardiac diet after testing -monitor electrolytes DVT Proph -on heparin gtt as per protocol -transitioning to coumadin Dispo -maintain as inpatient on tele -full code -discharge planning Code(s): Z29.9 - ENCOUNTER FOR PROPHYLACTIC MEASURES, UNSPECIFIED Visit type - Emergency Visit Emergency Visit: Yes ED Registration Date: 05/02/19 Care time: The patient presented to the Emergency Department on the above date and was hospitalized for further evaluation of their emergent condition. - New Patient This patient is new to me today: Yes Date on this admission: 05/06/19 - Critical Care Critical Care patient: No
[2019-05-06 09:52] LABS: INR 1.24 (0.83-1.09); PROTHROMBIN TIME (PATIENT) 14.7 SEC (9.7-13.0)
[2019-05-06] MEDS: CLOPIDOGREL BISULFATE 75 MG TABLET (FP) PO SCH (09:59)
[2019-05-06] MEDS: SPIRONOLACTONE 25 MG TABLET (FP) PO SCH (09:59)
[2019-05-06] MEDS: CARVEDILOL 12.5 MG TABLET (FP) PO SCH ×2 (10:00→21:35)
[2019-05-06] MEDS: ENALAPRIL MALEATE 2.5 MG TABLET (FP) PO SCH ×2 (10:00→21:35)
[2019-05-06] MEDS ORDERED: PT OWN MED DRAWER 7, Y5N ONE (12:28)
[2019-05-06] MEDS: HEPARIN - 25,000 UNIT in SODIUM CHLORIDE 495 ML IV SCH (16:28)
[2019-05-06] MEDS ORDERED: WARFARIN NA 7.5 MG TABLET (FP) PO ONE (18:00)
[2019-05-06] MEDS: ATORVASTATIN CA 20 MG TABLET (FP) PO SCH (21:35)
--- NOTE | 2019-05-07 06:51 | PN ---
Progress Note (short form) - Note Progress Note: Coverage for Dr. Vaughan Chief Complaint: Events Noted, notes reviewed, resting in bed, denies any chest pain or dyspnea, Heparin infusion in situ bridging to Coumadin History of Present Illness: Seen and examined on telemetry. Events Noted, notes reviewed, resting in bed, denies any chest pain or dyspnea, Heparin infusion in situ bridging to Coumadin Plan as per primary cardiology team, RICARDO for evaluation of LV thrombus, Life- Vest upon D/C home pending prophylactic ICD implant, issue is lack of insurance coverage which was discussed with the son yesterday - Current Medication List Current Medications Atorvastatin Calcium (Lipitor -) 20 mg PO HS [facility] Last Admin: 05/06/19 21:35 Dose: 20 mg Carvedilol (Coreg -) 12.5 mg PO BID [facility] Last Admin: 05/06/19 21:35 Dose: 12.5 mg Clopidogrel Bisulfate (Plavix -) 75 mg PO DAILY [facility] Last Admin: 05/06/19 09:59 Dose: 75 mg Enalapril Maleate (Vasotec -) 5 mg PO BID [facility] Last Admin: 05/06/19 21:35 Dose: 5 mg Heparin Sodium (Porcine) (Heparin -) 1,000 unit IVPUSH PRN PRN PRN Reason: Heparin Last Admin: 05/05/19 08:58 Dose: 1,000 unit Heparin Sodium (Porcine) (Heparin -) 5,000 unit IVPUSH PRN PRN PRN Reason: Heparin Heparin Sodium (Porcine) 25, (000 unit/ Sodium Chloride) 500 mls @ 20 mls/hr IV TITR [facility]; Protocol Last Admin: 05/06/19 16:28 Dose: 1,200 unit/hr, 24 mls/hr Spironolactone (Aldactone -) 25 mg PO DAILY [facility] Last Admin: 05/06/19 09:59 Dose: 25 mg Review of Systems Cardiovascular: As noted above Respiratory: denies Cough or Sputum Production Gastrointestinal: denies: Nausea, Vomiting, Diarrhea, Constipation or Abdominal Discomfort Musculoskeletal: No Symptoms Reported - Objective Vital Signs: Last Vital Signs Temp Pulse Resp BP Pulse Ox 98.2 F 64 20 124/62 95 05/07/19 06:00 05/07/19 06:00 05/07/19 06:00 05/07/19 06:00 05/06/19 21:00 Intake & Output 05/04/19 05/05/19 05/06/19 05/07/19 23:59 23:59 23:59 23:59 Intake Total 2988 480 1446 178 Output Total 200 Balance 2988 280 1446 178 Weight 162 lb 2 oz 163 lb 161 lb 6.4 oz Constitutional: No Distress, Calm Neck: Supple Negative JVD No Bruit Respiratory: Clear to A&P Cardiovascular: S1 S2 Regular Rate Rhythm Gastrointestinal: Soft Benign Normal Bowel Sounds Ext: Negative Edema Labs: CBC, BMP 05/07/19 05:15 05/07/19 05:15 Hepatic Panel Total Bilirubin 0.8 mg/dL (0.2-1) 05/06/19 06:20 AST 34 U/L (15-37) 05/06/19 06:20 ALT 32 U/L (13-61) 05/06/19 06:20 Alkaline Phosphatase 51 U/L (45-117) 05/06/19 06:20 Albumin 2.8 g/dl (3.4-5.0) L 05/06/19 06:20 INR, PTT INR 1.66 (0.83-1.09) H 05/07/19 05:15 ASSESSMENT: 1. 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 CAD post [place]/PCI angina pectoris 3. LV systolic dysfunction with clinical class 0 NYHA classification LV failure 4. Possible LV apical thrombus, for further evaluation- RICARDO for further evaluation 5. HTN 6. Hypercholesterolemia PLAN: 1. Continue Coreg and titrate dosage as tolerated, hemodynamics permitting 2. Continue Vasotec and titrate dosage as tolerated, hemodynamics permitting 3. Continue Lipitor 4. Continue Aldactone 5. Continue Plavix with caution 6. Continue Heparin and Coumadin bridging as per INR 7. Plan to proceed with RICARDO for further evaluation of the above noted possible LV apical thrombus 8. Additional evaluation of ischemic burden and reassessment of LVEF prior to planning further intervention including possible prophylactic ICD as outpatient , Life- Vest upon D/C- as outlined limiting factor might be lack insurance coverage Claudia Ferreira M.D.
[2019-05-07 07:29] LABS: EOS % 6.4 % (0-4.5); HEMATOCRIT 40.9 % (35.4-49); HEMOGLOBIN 13.9 GM/dL (11.7-16.9); LYMPH % 22.9 % (8-40); MCH 31.3 pg (25.7-33.7); MCHC 33.9 g/dl (32.0-35.9); MEAN CELL VOLUME 92.5 fl (80-96); MEAN PLT VOLUME 9.6 fl (7.5-11.1); MONO % 13.1 % (3.8-10.2); NEUT % 56.6 % (42.8-82.8); PLATELET COUNT 187 K/MM3 (134-434); RBC 4.42 M/mm3 (4.00-5.60); RDW 12.6 % (11.9-15.9); WHITE BLOOD COUNT 6.5 K/mm3 (4.0-10.0)
[2019-05-07 07:36] LABS: BILIRUBIN,TOTAL 0.5 mg/dL (0.2-1); BLOOD UREA NITROGEN 13.8 mg/dL (7-18); CALCIUM 8.4 mg/dL (8.5-10.1); CREATININE 0.8 mg/dL (0.55-1.3); INR 1.66 (0.83-1.09); MAGNESIUM 2.2 mg/dL (1.8-2.4); PROTHROMBIN TIME (PATIENT) 19.7 SEC (9.7-13.0); TOT PROT 6.7 g/dl (6.4-8.2)
--- NOTE | 2019-05-07 08:12 | PN ---
Physical Exam: HPI 69 y/o male, with PMH of CAD (s/p stent 5-6 years ago), presented with low back and abdominal pain. Patient was evaluated in the ED on 05/02, with a CTA negative for PE and chest pathology. He stated his pain remains over the low back that radiates to the RLQ. Endorses some relief with Tylenol. SUBJECTIVE: Patient seen and examined. [employer] used, Ivy #[id number]. at bedside. PT laying in bed with complaints of pressure like back pain 12/11. Nakul chest pain, N/V/D, fever, chills. OBJECTIVE: Vital Signs Period Temp Pulse Resp BP Sys/Bland Pulse Ox Last 24 Hr 98.1 F-99.3 F 63-75 16-22 124-135/62-74 95-95 GENERAL: The patient is awake, alert, and fully oriented, in no acute distress. HEAD: Normal with no signs of trauma. EYES: PERRL, extraocular movements intact, sclera anicteric, conjunctiva clear. No ptosis. ENT: Ears normal, nares patent, oropharynx clear without exudates, moist mucous membranes. NECK: Trachea midline, full range of motion, supple. LUNGS: Breath sounds equal, clear to auscultation bilaterally, no wheezes, no crackles, no accessory muscle use. HEART: Regular rate and rhythm, S1, S2 ABDOMEN: Soft, nontender, nondistended, normoactive bowel sounds, no guarding, no rebound, no hepatosplenomegaly, no masses. EXTREMITIES: 2+ pulses, warm, well-perfused, no edema. NEUROLOGICAL: Alert and Oriented x 3 PSYCH: Normal mood, normal affect. SKIN: Warm, dry, normal turgor, no rashes or lesions noted Laboratory Results - last 24 hr 05/06/19 05/06/19 05/06/19 06:20 06:20 06:20 WBC 6.7 RBC 4.23 Hgb 13.3 Hct 39.1 MCV 92.4 MCH 31.5 MCHC 34.1 RDW 12.2 Plt Count 168 MPV 9.4 Absolute Neuts (auto) 4.5 Neutrophils % 66.5 Lymphocytes % 17.3 Monocytes % 11.9 H Eosinophils % 3.6 Basophils % 0.7 Nucleated RBC % 0 PT with INR 14.70 H INR 1.24 H PTT (Actin FS) Sodium 140 Potassium 4.0 Chloride 105 Carbon Dioxide 24 Anion Gap 11 BUN 11.8 Creatinine 0.9 Est GFR (CKD-EPI)AfAm 100.65 Est GFR (CKD-EPI)NonAf 86.84 Random Glucose 100 Calcium 8.2 L Magnesium 2.4 Total Bilirubin 0.8 AST 34 ALT 32 Alkaline Phosphatase 51 Total Protein 6.4 Albumin 2.8 L 05/07/19 05/07/19 05/07/19 05:15 05:15 05:15 WBC 6.5 RBC 4.42 Hgb 13.9 Hct 40.9 MCV 92.5 MCH 31.3 MCHC 33.9 RDW 12.6 Plt Count 187 MPV 9.6 Absolute Neuts (auto) 3.7 Neutrophils % 56.6 Lymphocytes % 22.9 D Monocytes % 13.1 H Eosinophils % 6.4 H Basophils % 1.0 Nucleated RBC % 0 PT with INR 19.70 H INR 1.66 H PTT (Actin FS) 44.0 H Sodium 137 Potassium 4.0 Chloride 104 Carbon Dioxide 25 Anion Gap 8 BUN 13.8 Creatinine 0.8 Est GFR (CKD-EPI)AfAm 105.64 Est GFR (CKD-EPI)NonAf 91.15 Random Glucose 83 Calcium 8.4 L Magnesium 2.2 Total Bilirubin 0.5 AST 27 ALT 31 Alkaline Phosphatase 57 Total Protein 6.7 Albumin 3.0 L Active Medications Generic Name Dose Route Start Last Admin Trade Name Freq PRN Reason Stop Dose Admin Atorvastatin Calcium 20 mg 05/03/19 22:00 05/06/19 21:35 Lipitor - PO 20 mg HS MAZIN Administration Carvedilol 12.5 mg 05/06/19 09:01 05/06/19 21:35 Coreg - PO 12.5 mg BID MAZIN Administration Clopidogrel Bisulfate 75 mg 05/03/19 13:30 05/06/19 09:59 Plavix - PO 75 mg DAILY MAZIN Administration Enalapril Maleate 5 mg 05/06/19 10:00 05/06/19 21:35 Vasotec - PO 5 mg BID MAZNI Administration Heparin Sodium (Porcine) 1,000 unit 05/02/19 15:13 05/05/19 08:58 Heparin - IVPUSH 1,000 unit PRN PRN Administration Heparin Heparin Sodium (Porcine) 5,000 unit 05/02/19 15:13 Heparin - IVPUSH PRN PRN Heparin Heparin Sodium (Porcine) 25, 500 mls @ 20 mls/hr 05/02/19 15:15 05/06/19 16: 28 000 unit/ Sodium Chloride IV 1,200 unit/hr TITR MAZIN 24 mls/hr Administration Protocol 1,000 UNIT/HR Spironolactone 25 mg 05/05/19 15:30 05/06/19 09:59 Aldactone - PO 25 mg DAILY MAZIN Administration ASSESSMENT/PLAN: - Problems (1) Abdominal pain Assessment/Plan: CT abd/pelvis revealed rt renal infarction/hypodensity, large area. Code(s): R10.9 - UNSPECIFIED ABDOMINAL PAIN Qualifiers: Abdominal location: right lower quadrant Qualified Code(s): R10.31 - Right lower quadrant pain (2) Hypomagnesemia Assessment/Plan: -Resolved Code(s): E83.42 - HYPOMAGNESEMIA (3) Infarction of kidney Assessment/Plan: Dr Love following patient -will need group home ac with coumadin - cont IV heparin for now according to protocol -coumadin 7.5mg x 4 days and INR remains subtherapeutic, will continue 7.5mg dose tonight INR/PT in AM -On Plavix 75 mg -will monitor for s/s of bleeding -monitor PTT Code(s): N28.0 - ISCHEMIA AND INFARCTION OF KIDNEY (4) Left ventricular dysfunction with reduced left ventricular function Assessment/Plan: TTE showed severely reduced EF 35% apical dyskinesis possible apical thrombus - most likely source of emboli cardiology note appreciate Lexiscan-showed EF 17% maintain on telemetry will need further w/u for possible AICD On SOFIE-I to preserve LV fx Currently waiting info regarding the possibilty of Life Vest per Ángela Bateman NP on DC-however pt is self pay Code(s): I51.9 - HEART DISEASE, UNSPECIFIED (5) Prophylactic measure Assessment/Plan: FEN -may resume cardiac diet after testing -monitor electrolytes DVT Proph -on heparin gtt as per protocol -transitioning to coumadin Dispo -maintain as inpatient on tele -full code -discharge planning Code(s): Z29.9 - ENCOUNTER FOR PROPHYLACTIC MEASURES, UNSPECIFIED (6) Back Pain -Likely due to Renal Infarction -Tylenol 650mg PO Q6hr PRN Problem List - Problems (1) Abdominal pain Code(s): R10.9 - UNSPECIFIED ABDOMINAL PAIN Qualifiers: Abdominal location: right lower quadrant Qualified Code(s): R10.31 - Right lower quadrant pain (2) Hypomagnesemia Code(s): E83.42 - HYPOMAGNESEMIA (3) Infarction of kidney Code(s): N28.0 - ISCHEMIA AND INFARCTION OF KIDNEY (4) Left ventricular dysfunction with reduced left ventricular function Code(s): I51.9 - HEART DISEASE, UNSPECIFIED (5) Prophylactic measure Code(s): Z29.9 - ENCOUNTER FOR PROPHYLACTIC MEASURES, UNSPECIFIED Visit type - Emergency Visit Emergency Visit: Yes ED Registration Date: 05/02/19 Care time: The patient presented to the Emergency Department on the above date and was hospitalized for further evaluation of their emergent condition. - New Patient This patient is new to me today: Yes Date on this admission: 05/07/19 - Critical Care Critical Care patient: No
[2019-05-07] MEDS ORDERED: ACETAMINOPHEN 325 MG TABLET (FP) PO PRN (08:42)
[2019-05-07] MEDS: CLOPIDOGREL BISULFATE 75 MG TABLET (FP) PO SCH (10:01)
[2019-05-07] MEDS: CARVEDILOL 12.5 MG TABLET (FP) PO SCH ×2 (10:02→21:14)
[2019-05-07] MEDS: HEPARIN NA (PORCINE) 5,000 UNITS/ML 1ML VIAL IVPUSH PRN (10:02)
[2019-05-07] MEDS: ENALAPRIL MALEATE 2.5 MG TABLET (FP) PO SCH ×2 (10:02→21:13)
[2019-05-07] MEDS: SPIRONOLACTONE 25 MG TABLET (FP) PO SCH (10:02)
[2019-05-07] MEDS ORDERED: PT OWN MED DRAWER 7, Y5N ONE (11:03)
[2019-05-07] MEDS: HEPARIN - 25,000 UNIT in SODIUM CHLORIDE 495 ML IV SCH (16:21)
[2019-05-07] MEDS ORDERED: WARFARIN NA 7.5 MG TABLET (FP) PO ONE (18:00)
[2019-05-07] MEDS: ATORVASTATIN CA 20 MG TABLET (FP) PO SCH (21:13)
[2019-05-08] MEDS ORDERED: PT OWN MED DRAWER 7, Y5N ONE ×2 (02:35→10:25)
[2019-05-08 06:32] LABS: BASO % 0.5 % (0-2.0); EOS % 8.1 % (0-4.5); HEMATOCRIT 43.7 % (35.4-49); HEMOGLOBIN 14.7 GM/dL (11.7-16.9); LYMPH % 22.1 % (8-40); MCHC 33.6 g/dl (32.0-35.9); MEAN CELL VOLUME 92.3 fl (80-96); MEAN PLT VOLUME 8.6 fl (7.5-11.1); MONO % 12.2 % (3.8-10.2); NEUT % 57.1 % (42.8-82.8); PLATELET COUNT 219 K/MM3 (134-434); RBC 4.73 M/mm3 (4.00-5.60); RDW 12.7 % (11.9-15.9); WHITE BLOOD COUNT 7.1 K/mm3 (4.0-10.0)
[2019-05-08 06:45] LABS: INR 2.55 (0.83-1.09); PROTHROMBIN TIME (PATIENT) 30.4 SEC (9.7-13.0)
[2019-05-08 06:50] LABS: BLOOD UREA NITROGEN 13.8 mg/dL (7-18)
[2019-05-08 06:51] LABS: ALBUMIN 3.1 g/dl (3.4-5.0); BILIRUBIN,TOTAL 0.6 mg/dL (0.2-1); CALCIUM 8.4 mg/dL (8.5-10.1); CREATININE 0.9 mg/dL (0.55-1.3); MAGNESIUM 2.3 mg/dL (1.8-2.4); POTASSIUM 4.1 mmol/L (3.5-5.1); TOT PROT 7.1 g/dl (6.4-8.2)
--- NOTE | 2019-05-08 07:39 | PN ---
Progress Note, Physician Chief Complaint: Resting comfortably in bed. Via interpretation by daughter in law mild right flank pain persists but chest pain subsided History of Present Illness: right flank, RLQ abdominal pain x 1 day prior to presenting to ED - Current Medication List Current Medications: Active Medications Acetaminophen (Tylenol -) 650 mg PO Q6H PRN PRN Reason: PAIN Atorvastatin Calcium (Lipitor -) 20 mg PO HS [facility] Last Admin: 05/07/19 21:13 Dose: 20 mg Carvedilol (Coreg -) 12.5 mg PO BID [facility] Last Admin: 05/07/19 21:14 Dose: 12.5 mg Clopidogrel Bisulfate (Plavix -) 75 mg PO DAILY [facility] Last Admin: 05/07/19 10:01 Dose: 75 mg Enalapril Maleate (Vasotec -) 5 mg PO BID [facility] Last Admin: 05/07/19 21:13 Dose: 5 mg Spironolactone (Aldactone -) 25 mg PO DAILY [facility] Last Admin: 05/07/19 10:02 Dose: 25 mg - Objective Vital Signs: Vital Signs Temperature 98.1 F 05/08/19 06:00 Pulse Rate 69 05/08/19 06:00 Respiratory Rate 20 05/08/19 06:00 Blood Pressure 135/60 05/08/19 06:00 O2 Sat by Pulse Oximetry (%) 97 05/07/19 21:00 Constitutional: Yes: Well Nourished, No Distress, Calm Eyes: Yes: WNL, Conjunctiva Clear, EOM Intact HENT: Yes: WNL, Atraumatic, Normocephalic Neck: Yes: WNL, Supple, Trachea Midline Cardiovascular: Yes: WNL, Regular Rate and Rhythm Respiratory: Yes: WNL, Regular, CTA Bilaterally Gastrointestinal: Yes: WNL, Normal Bowel Sounds, Soft, Other (right flamk pain) ...Rectal Exam: Yes: Deferred Genitourinary: Yes: WNL Musculoskeletal: Yes: WNL Extremities: Yes: WNL Edema: No Peripheral Pulses WNL: Yes Integumentary: Yes: WNL Neurological: Yes: WNL ...Motor Strength: WNL Psychiatric: Yes: WNL, Alert, Oriented Labs: CBC, BMP 05/08/19 05:50 05/08/19 05:50 INR, PTT INR 2.55 (0.83-1.09) H 05/08/19 05:50 - ....Imaging Cat Scan: Report Reviewed (CT:can revealed partial right renal infarct.) Other: Report Reviewed (TTE:severely reduced ef 35% apical dyskinesis possible apical thrombus - most likely source of emboli ST: large old anteroseptal MT, no ischemia. EF 17%. Akinesis anterior wall, septum and apex.) Problem List - Problems (1) Abdominal pain Assessment/Plan: CT abd/pelvis revealed rt renal infarction/hypodensity, large area. right flank pain persists Code(s): R10.9 - UNSPECIFIED ABDOMINAL PAIN Qualifiers: Abdominal location: right lower quadrant Qualified Code(s): R10.31 - Right lower quadrant pain (2) Infarction of kidney Assessment/Plan: Dr Love following patient will need director of placement ac with coumadin Heparin stopped. Therapeutic on coumadin. INR 2.55. Will dose 5mg tonight continue Plavix 75 mg will monitor for s/s of bleeding Code(s): N28.0 - ISCHEMIA AND INFARCTION OF KIDNEY (3) Prophylactic measure Assessment/Plan: FEN cardiac diet monitor electrolytes DVT Proph continue coumadin Dispo maintain as inpatient on tele full code discharge planning Code(s): Z29.9 - ENCOUNTER FOR PROPHYLACTIC MEASURES, UNSPECIFIED (4) Left ventricular dysfunction with reduced left ventricular function Assessment/Plan: TTE showed severely reduced EF 35% apical dyskinesis possible apical thrombus - most likely source of emboli cardiology note appreciate Lexiscan large old anteroseptal MT, no ischemia. EF 17%. Akinesis anterior wall , septum and apex. No plan for RICARDO at this time as it would not change overall management- Dr Vaughan will discuss treatment options with family/pt maintain on telemetry will need further w/u for possible AICD c/w low dose SOFIE-I to preserve LV fx tomorrow possible [employer] Life Vest however pt is self-left message for [employer] area rep Roni Salazar [phone] regarding payment options or chelsie case Code(s): I51.9 - HEART DISEASE, UNSPECIFIED (5) Normal Holter exam Assessment/Plan: holter monitor placement on 05/03 no significant pauses of evidence of AFib, one short self limited run of OSVT, likely atrial tachy Code(s): Z00.00 - ENCNTR FOR GENERAL ADULT MEDICAL EXAM W/O ABNORMAL FINDINGS (6) Physical therapy evaluation, initial Assessment/Plan: will have PT seen pt to determine exercise tolerance while pt is on tele if any Chest pain occurs terminate immediately Code(s): Z01.89 - ENCOUNTER FOR OTHER SPECIFIED SPECIAL EXAMINATIONS Visit type - Emergency Visit Emergency Visit: Yes ED Registration Date: 05/02/19 Care time: The patient presented to the Emergency Department on the above date and was hospitalized for further evaluation of their emergent condition. - New Patient This patient is new to me today: No - Critical Care Critical Care patient: No - Discharge Referral Referred to [facility] Med P.C[facility] No
[2019-05-08] MEDS: CLOPIDOGREL BISULFATE 75 MG TABLET (FP) PO SCH (13:37)
[2019-05-08] MEDS: SPIRONOLACTONE 25 MG TABLET (FP) PO SCH (13:37)
[2019-05-08] MEDS: CARVEDILOL 12.5 MG TABLET (FP) PO SCH ×2 (13:38→21:29)
[2019-05-08] MEDS: ENALAPRIL MALEATE 2.5 MG TABLET (FP) PO SCH ×2 (13:38→21:29)
--- NOTE | 2019-05-08 14:26 | PN ---
Progress Note, Physician History of Present Illness: 69 y/o male, with PMH of CAD (s/p stent 5-6 years ago), presenting with low back and abdominal pain. Patient was evaluated in the ED yesterday, with a CTA negative for PE and chest pathology. He states his pain remains over the low back that radiates to the RLQ. Endorses some relief with Tylenol. Denies fever, chills, chest pain, SOB, palpitation, dizziness, weakness, N, V, D , bladder and bowel problems, leg swelling, No sick contacts or travel. No new changes in medications. No suspicious food intake Allergies: NKA, NKDA Past Medical History: CAD (s/p stent) Social history: Lives with family. Former smoker. No ETOH or drug use. Surgical history: Stent Meds: as documented in EMR PMD: NOS (doctor in [facility]) - Current Medication List Current Medications: Active Medications Acetaminophen (Tylenol -) 650 mg PO Q6H PRN PRN Reason: PAIN Atorvastatin Calcium (Lipitor -) 20 mg PO HS [facility] Last Admin: 05/07/19 21:13 Dose: 20 mg Carvedilol (Coreg -) 12.5 mg PO BID [facility] Last Admin: 05/08/19 13:38 Dose: 12.5 mg Clopidogrel Bisulfate (Plavix -) 75 mg PO DAILY [facility] Last Admin: 05/08/19 13:37 Dose: 75 mg Enalapril Maleate (Vasotec -) 5 mg PO BID [facility] Last Admin: 05/08/19 13:38 Dose: 5 mg Spironolactone (Aldactone -) 25 mg PO DAILY [facility] Last Admin: 05/08/19 13:37 Dose: 25 mg Warfarin Sodium (Coumadin -) 5 mg PO ONCE@1800 ONE Stop: 05/08/19 18:01 - Objective Vital Signs: Vital Signs Temperature 98.0 F 05/08/19 14:16 Pulse Rate 68 05/08/19 14:16 Respiratory Rate 16 05/08/19 14:16 Blood Pressure 115/69 05/08/19 14:16 O2 Sat by Pulse Oximetry (%) 97 05/07/19 21:00 Eyes: Yes: WNL, Conjunctiva Clear, EOM Intact HENT: Yes: WNL, Atraumatic, Normocephalic Neck: Yes: WNL, Supple, Trachea Midline Cardiovascular: Yes: WNL, Regular Rate and Rhythm Respiratory: Yes: WNL, Regular, CTA Bilaterally Gastrointestinal: Yes: WNL, Normal Bowel Sounds Genitourinary: Yes: WNL Musculoskeletal: Yes: WNL Extremities: Yes: WNL Edema: No Integumentary: Yes: WNL Neurological: Yes: WNL, Alert, Oriented ...Motor Strength: WNL Psychiatric: Yes: WNL Labs: CBC, BMP 05/08/19 05:50 05/08/19 05:50 INR, PTT INR 2.55 (0.83-1.09) H 05/08/19 05:50 Problem List - Problems (1) Abdominal pain Code(s): R10.9 - UNSPECIFIED ABDOMINAL PAIN Qualifiers: Abdominal location: right lower quadrant Qualified Code(s): R10.31 - Right lower quadrant pain (2) Infarction of kidney Code(s): N28.0 - ISCHEMIA AND INFARCTION OF KIDNEY (3) Prophylactic measure Code(s): Z29.9 - ENCOUNTER FOR PROPHYLACTIC MEASURES, UNSPECIFIED (4) Pain Code(s): R52 - PAIN, UNSPECIFIED Assessment/Plan Acute presentation of a partial renal infarct suggests an embolic source. ashd s/p ant apical mi s/p pci 5-6 years ago echo showed severely reduced ef 35% apical dyskinesis possible apical thrombus - most likely source of emboli htn hlp ac as per vascular surgery will need long ter ac with coumadin - INR above therapeutic restart Plavix- uncleare why patient is on Plavix not on ASA - patient and family do not know 24 holter to r/o af telemetry Lexiscan large old anteroseptal [place], no ischemia. EF 17%. Akinesis anterior wall , septum and apex. No plan for RICRADO at this time as it would not change overall management- even if no thrombus is vissible in dyskinetic apex (it could have gone and emboli renal artery) patient still will need terminal worker AC to prevent another thrombus formation. maintain on telemetry Holter negative for AF will need further w/u for possible AICD per ANGIOGRAPHY TECHNOLOGIST - possible [employer] Life Vest however pt is self-left message for [employer] area rep Roni Salazar [phone] regarding payment options or chelsie case Andrew bb being optimized If after 90 day of optimal medical rx ef still below 35 % will need AICD.
[2019-05-08] MEDS ORDERED: WARFARIN NA 5 MG TABLET (UD) PO ONE (18:00)
[2019-05-08] MEDS: ATORVASTATIN CA 20 MG TABLET (FP) PO SCH (21:29)
[2019-05-09 07:10] LABS: BASO % 0.5 % (0-2.0); HEMATOCRIT 43.4 % (35.4-49); HEMOGLOBIN 14.9 GM/dL (11.7-16.9); LYMPH % 21.7 % (8-40); MCH 31.5 pg (25.7-33.7); MCHC 34.3 g/dl (32.0-35.9); MEAN CELL VOLUME 91.9 fl (80-96); MEAN PLT VOLUME 8.3 fl (7.5-11.1); MONO % 13.9 % (3.8-10.2); NEUT % 54.9 % (42.8-82.8); PLATELET COUNT 282 K/MM3 (134-434); RBC 4.72 M/mm3 (4.00-5.60); RDW 12.4 % (11.9-15.9); WHITE BLOOD COUNT 6.7 K/mm3 (4.0-10.0)
[2019-05-09 07:39] LABS: INR 2.6 (0.83-1.09)
[2019-05-09 08:03] LABS: ALBUMIN 3.3 g/dl (3.4-5.0); BLOOD UREA NITROGEN 21.1 mg/dL (7-18); CALCIUM 9.2 mg/dL (8.5-10.1); CREATININE 1.1 mg/dL (0.55-1.3); MAGNESIUM 2.4 mg/dL (1.8-2.4); POTASSIUM 4.6 mmol/L (3.5-5.1)
[2019-05-09 08:05] LABS: BILIRUBIN,TOTAL 0.6 mg/dL (0.2-1); TOT PROT 7.4 g/dl (6.4-8.2)
[2019-05-09] MEDS ORDERED: PT OWN MED DRAWER 7, Y5N ONE (10:16)
[2019-05-09] MEDS: SPIRONOLACTONE 25 MG TABLET (FP) PO SCH (10:27)
[2019-05-09] MEDS: ENALAPRIL MALEATE 2.5 MG TABLET (FP) PO SCH ×2 (10:27→22:55)
[2019-05-09] MEDS: CARVEDILOL 12.5 MG TABLET (FP) PO SCH (10:27)
[2019-05-09] MEDS: CLOPIDOGREL BISULFATE 75 MG TABLET (FP) PO SCH (10:27)
--- NOTE | 2019-05-09 10:49 | PN ---
Progress Note, Physician History of Present Illness: 69 y/o male, with PMH of CAD (s/p stent 5-6 years ago), presenting with low back and abdominal pain. Patient was evaluated in the ED yesterday, with a CTA negative for PE and chest pathology. He states his pain remains over the low back that radiates to the RLQ. Endorses some relief with Tylenol. Denies fever, chills, chest pain, SOB, palpitation, dizziness, weakness, N, V, D , bladder and bowel problems, leg swelling, No sick contacts or travel. No new changes in medications. No suspicious food intake Allergies: NKA, NKDA Past Medical History: CAD (s/p stent) Social history: Lives with family. Former smoker. No ETOH or drug use. Surgical history: Stent Meds: as documented in EMR PMD: NOS (doctor in [facility]) - Current Medication List Current Medications: Active Medications Acetaminophen (Tylenol -) 650 mg PO Q6H PRN PRN Reason: PAIN Last Admin: 05/09/19 10:31 Dose: 650 mg Atorvastatin Calcium (Lipitor -) 20 mg PO HS [facility] Last Admin: 05/08/19 21:29 Dose: 20 mg Carvedilol (Coreg -) 12.5 mg PO BID [facility] Last Admin: 05/09/19 10:27 Dose: 12.5 mg Clopidogrel Bisulfate (Plavix -) 75 mg PO DAILY [facility] Last Admin: 05/09/19 10:27 Dose: 75 mg Enalapril Maleate (Vasotec -) 5 mg PO BID [facility] Last Admin: 05/09/19 10:27 Dose: 5 mg Spironolactone (Aldactone -) 25 mg PO DAILY [facility] Last Admin: 05/09/19 10:27 Dose: 25 mg - Objective Vital Signs: Vital Signs Temperature 98.5 F 05/09/19 10:32 Pulse Rate 73 05/09/19 10:32 Respiratory Rate 20 05/09/19 10:32 Blood Pressure 104/59 L 05/09/19 10:32 O2 Sat by Pulse Oximetry (%) 97 05/08/19 21:00 Eyes: Yes: WNL, Conjunctiva Clear, EOM Intact HENT: Yes: WNL, Atraumatic, Normocephalic Neck: Yes: WNL, Supple, Trachea Midline Cardiovascular: Yes: WNL, Regular Rate and Rhythm Respiratory: Yes: WNL, Regular, CTA Bilaterally Gastrointestinal: Yes: WNL, Normal Bowel Sounds Genitourinary: Yes: WNL Musculoskeletal: Yes: WNL Extremities: Yes: WNL Edema: No Integumentary: Yes: WNL Neurological: Yes: WNL, Alert, Oriented ...Motor Strength: WNL Psychiatric: Yes: WNL Labs: CBC, BMP 05/09/19 06:30 05/09/19 06:30 INR, PTT INR 2.60 (0.83-1.09) H 05/09/19 06:30 Problem List - Problems (1) Abdominal pain Code(s): R10.9 - UNSPECIFIED ABDOMINAL PAIN Qualifiers: Abdominal location: right lower quadrant Qualified Code(s): R10.31 - Right lower quadrant pain (2) Infarction of kidney Code(s): N28.0 - ISCHEMIA AND INFARCTION OF KIDNEY (3) Prophylactic measure Code(s): Z29.9 - ENCOUNTER FOR PROPHYLACTIC MEASURES, UNSPECIFIED (4) Pain Code(s): R52 - PAIN, UNSPECIFIED Assessment/Plan Acute presentation of a partial renal infarct suggests an embolic source. ashd s/p ant apical mi s/p pci 5-6 years ago echo showed severely reduced ef 35% apical dyskinesis possible apical thrombus - most likely source of emboli htn hlp ac as per vascular surgery will need long ter ac with coumadin - INR above therapeutic restart Plavix- uncleare why patient is on Plavix not on ASA - patient and family do not know 24 holter to r/o af telemetry Lexiscan large old anteroseptal [place], no ischemia. EF 17%. Akinesis anterior wall , septum and apex. No plan for RICARDO at this time as it would not change overall management- even if no thrombus is vissible in dyskinetic apex (it could have gone and emboli renal artery) patient still will need director long term care AC to prevent another thrombus formation. maintain on telemetry Holter negative for AF will need further w/u for possible AICD per AGRONOMY PROFESSOR - possible [employer] Life Vest however pt is self-left message for [employer] area rep Roni Salazar [phone] regarding payment options or chelsie case Andrew bb being optimized If after 90 day of optimal medical rx ef still below 35 % will need AICD.
--- NOTE | 2019-05-09 11:06 | HOSP ---
Physical Examination Vital Signs: Vital Signs Temperature 98.5 F 05/09/19 10:32 Pulse Rate 73 05/09/19 10:32 Respiratory Rate 20 05/09/19 10:32 Blood Pressure 104/59 L 05/09/19 10:32 O2 Sat by Pulse Oximetry (%) 97 05/08/19 21:00 Labs: CBC, BMP 05/09/19 06:30 05/09/19 06:30 Hospitalist Encounter Assessment: [facility] ([phone][facility] regarding obtaining a Life Vest for patient. All necessary paper work sent to him to. Informed patient duaghetr in law last night that we were trying to obtaining the Life Vest but since patient is uninsured it is a difficult situation trying to get the Life Vest. We will continue to medically optimize patient with medication to perserve LV funstion. Daniella Rondon is aware of situation along with my Medical coverage Kami Burden NP.
[2019-05-09] MEDS ORDERED: HYDROCORTISONE 0.5% TOPICAL OINTMENT TUBE TP PRN ×2 (11:26→11:31)
[2019-05-09] MEDS ORDERED: diphenhydrAMINE HCL 25 MG CAPSULE (FP) PO PRN (11:44)
--- NOTE | 2019-05-09 11:44 | PN ---
Progress Note, Physician Chief Complaint: itchy rash under right arm and on both buttocks no chest pain, no shortness of breath. History of Present Illness: Patient is a 69 year old male, with PMH of CAD (s/p stent 5-6 years ago), presenting to the ED on 05/02/2019 with with low back and abdominal pain. Patient was evaluated in the ED with a CTA negative for PE and chest pathology. However , a CT abd/pelvis revealed a right renal infarction/hypodensity, large area. Further imaging: -A echo showed severely reduced ef 35% apical dyskinesis possible apical thrombus - most likely source of emboli -Lexiscan large old anteroseptal [place], no ischemia. EF 17%. Akinesis anterior wall , septum and apex. He will require a zoll vest however he is uninsured and currently this facility is attempting to coordinate for a [employer] Life vest via chelsie through [employer] area rep. He is currently being medically managed with an mai and BB. Patient may need AICD if EF still below 35% after 90days of optimal medical management. contact info for [facility] rep Roni Lock # [phone] - Current Medication List Current Medications: Active Medications Acetaminophen (Tylenol -) 650 mg PO Q6H PRN PRN Reason: PAIN Last Admin: 05/09/19 10:31 Dose: 650 mg Atorvastatin Calcium (Lipitor -) 20 mg PO [facility] Last Admin: 05/08/19 21:29 Dose: 20 mg Carvedilol (Coreg -) 25 mg PO BID [facility] Clopidogrel Bisulfate (Plavix -) 75 mg PO DAILY [facility] Last Admin: 05/09/19 10:27 Dose: 75 mg Enalapril Maleate (Vasotec -) 5 mg PO BID [facility] Last Admin: 05/09/19 10:27 Dose: 5 mg Hydrocortisone (Hytone 1% Ointment -) 1 applic TP BID [facility] Spironolactone (Aldactone -) 25 mg PO DAILY [facility] Last Admin: 05/09/19 10:27 Dose: 25 mg Warfarin Sodium (Coumadin -) 2.5 mg PO DAILY@1800 [facility] - Objective Vital Signs: Vital Signs Temperature 98.5 F 05/09/19 10:32 Pulse Rate 73 05/09/19 10:32 Respiratory Rate 20 05/09/19 10:32 Blood Pressure 104/59 L 0709/19 10:32 O2 Sat by Pulse Oximetry (%) 97 05/08/19 21:00 Constitutional: Yes: Well Nourished, No Distress, Calm Eyes: Yes: WNL HENT: Yes: WNL Neck: Yes: WNL Cardiovascular: Yes: WNL Respiratory: Yes: WNL, Regular Gastrointestinal: Yes: WNL ...Rectal Exam: Yes: Deferred Genitourinary: Yes: WNL Musculoskeletal: Yes: WNL Extremities: Yes: WNL Integumentary: Yes: Rash (raised pinked itchy rash under right arm and buttocks. etiology unclear.) Neurological: Yes: WNL, Alert, Oriented ...Motor Strength: WNL Psychiatric: Yes: WNL Labs: CBC, BMP 05/09/19 06:30 05/09/19 06:30 INR, PTT INR 2.60 (0.83-1.09) H 05/09/19 06:30 Problem List - Problems (1) Infarction of kidney Assessment/Plan: CT scan shows lack of blood flow to 1/2 right kidney per vascular. will need intermediate accountant ac with coumadin, goal inr 2-3 continue Plavix 75 mg will monitor for s/s of bleeding Code(s): N28.0 - ISCHEMIA AND INFARCTION OF KIDNEY (2) Left ventricular dysfunction with reduced left ventricular function Assessment/Plan: TTE showed severely reduced EF 35% apical dyskinesis possible apical thrombus - most likely source of emboli cardiology note reviewed and appreciated Lexiscan large old anteroseptal [place], no ischemia. EF 17%. Akinesis anterior wall , septum and apex. No plan for RICARDO at this time as it would not change overall management- Dr Vaughan will discuss treatment options with family/pt maintain on telemetry will need further w/u for possible AICD possible [employer] Life Vest however pt is self-left message for [employer] area rep Roni Salazar regarding payment options or chelsie case Code(s): I51.9 - HEART DISEASE, UNSPECIFIED (3) Abdominal pain Code(s): R10.9 - UNSPECIFIED ABDOMINAL PAIN Qualifiers: Abdominal location: right lower quadrant Qualified Code(s): R10.31 - Right lower quadrant pain (4) Hypomagnesemia Assessment/Plan: monitor with labs Code(s): E83.42 - HYPOMAGNESEMIA (5) Normal Holter exam Assessment/Plan: holter monitor placement on 05/03 no significant pauses of evidence of AFib, one short self limited run of OSVT, likely atrial tachy (6) Physical therapy evaluation, initial Assessment/Plan: will have PT seen pt to determine exercise tolerance while pt is on tele if any Chest pain occurs terminate immediately Code(s): Z01.89 - ENCOUNTER FOR OTHER SPECIFIED SPECIAL EXAMINATIONS (7) Prophylactic measure Assessment/Plan: FEN cardiac diet monitor electrolytes DVT Proph continue coumadin Dispo maintain as inpatient on tele full code discharge planning Code(s): Z29.9 - ENCOUNTER FOR PROPHYLACTIC MEASURES, UNSPECIFIED Visit type - Emergency Visit Emergency Visit: Yes ED Registration Date: 05/02/19 Care time: The patient presented to the Emergency Department on the above date and was hospitalized for further evaluation of their emergent condition. - New Patient This patient is new to me today: Yes Date on this admission: 05/09/19 - Critical Care Critical Care patient: No - Discharge Referral Referred to [facility] Med P.C[facility] No Imaging - Results EKG: Image Reviewed
[2019-05-09] MEDS: HYDROCORTISONE 1% TOPICAL OINT 30 GM TUBE TP SCH ×2 (12:42→22:55)
[2019-05-09] MEDS ORDERED: SODIUM CHLORIDE 250 ML IV STA (14:07)
[2019-05-09] MEDS: WARFARIN NA 2.5 MG TABLET (FP) PO SCH (18:02)
[2019-05-09] MEDS: ATORVASTATIN CA 20 MG TABLET (FP) PO SCH (22:55)
[2019-05-09] MEDS: CARVEDILOL 25 MG TABLET (FP) PO SCH (22:55)
[2019-05-10] MEDS: guaiFENesin 200 MG/10 ML 10 ML UNIT-DOSE CUPS PO PRN ×2 (05:55→10:22)
[2019-05-10 07:02] LABS: INR 2.76 (0.83-1.09); PROTHROMBIN TIME (PATIENT) 32.9 SEC (9.7-13.0)
[2019-05-10 07:13] LABS: EOS % 9.9 % (0-4.5); HEMATOCRIT 41.5 % (35.4-49); HEMOGLOBIN 14.2 GM/dL (11.7-16.9); LYMPH % 19.2 % (8-40); MCH 31.2 pg (25.7-33.7); MCHC 34.2 g/dl (32.0-35.9); MEAN CELL VOLUME 91.3 fl (80-96); MEAN PLT VOLUME 8.3 fl (7.5-11.1); MONO % 11.3 % (3.8-10.2); NEUT % 58.6 % (42.8-82.8); PLATELET COUNT 310 K/MM3 (134-434); RBC 4.55 M/mm3 (4.00-5.60); RDW 12.5 % (11.9-15.9); WHITE BLOOD COUNT 6.6 K/mm3 (4.0-10.0)
[2019-05-10 07:22] LABS: ALBUMIN 3.3 g/dl (3.4-5.0); BILIRUBIN,TOTAL 0.5 mg/dL (0.2-1); BLOOD UREA NITROGEN 20.9 mg/dL (7-18); CALCIUM 8.7 mg/dL (8.5-10.1); MAGNESIUM 2.2 mg/dL (1.8-2.4); POTASSIUM 4.4 mmol/L (3.5-5.1); TOT PROT 7.2 g/dl (6.4-8.2)
--- NOTE | 2019-05-10 09:25 | PN ---
Progress Note, Physician Chief Complaint: itchy rash under right arm and on both buttocks no chest pain, no shortness of breath. having some coughing overnight. History of Present Illness: Patient is a 69 year old male, with PMH of CAD (s/p stent 5-6 years ago), presenting to the ED on 05/02/2019 with with low back and abdominal pain. Patient was evaluated in the ED with a CTA negative for PE and chest pathology. However , a CT abd/pelvis revealed a right renal infarction/hypodensity, large area. Further imaging: -A echo showed severely reduced ef 35% apical dyskinesis possible apical thrombus - most likely source of emboli -Lexiscan large old anteroseptal [place], no ischemia. EF 17%. Akinesis anterior wall , septum and apex. He will require a zoll vest however he is uninsured and currently this facility is attempting to coordinate for a [employer] Life vest via chelsie through [employer] area rep. He is currently being medically managed with an mai and BB. Patient may need AICD if EF still below 35% after 90days of optimal medical management. Called [employer] financial service representative this morning to discuss patient further. The cost for [employer] vest is $3300 per month. Family informed and states that patient will be leaving to [facility] at the end of June. Discussed that a zoll vest requires cardiology management and this type of vest may not be available in [facility]. Son to come in today to discuss this further. As per [employer] representive, once payment is received, patient can be fitted for the vest. contact info for [employer] rep Roni Lock # [phone] - cell phone - Current Medication List Current Medications: Active Medications Acetaminophen (Tylenol -) 650 mg PO Q6H PRN PRN Reason: PAIN Last Admin: 05/09/19 10:31 Dose: 650 mg Atorvastatin Calcium (Lipitor -) 20 mg PO HS [facility] Last Admin: 05/09/19 22:55 Dose: 20 mg Carvedilol (Coreg -) 25 mg PO BID [facility] Last Admin: 05/09/19 22:55 Dose: 25 mg Clopidogrel Bisulfate (Plavix -) 75 mg PO DAILY [facility] Last Admin: 05/09/19 10:27 Dose: 75 mg Diphenhydramine HCl (Benadryl -) 25 mg PO Q6H PRN PRN Reason: FOR ITCHING Last Admin: 05/09/19 12:42 Dose: 25 mg Enalapril Maleate (Vasotec -) 5 mg PO BID [facility] Last Admin: 05/09/19 22:55 Dose: 5 mg Guaifenesin (Robitussin -) 10 ml PO Q6H PRN PRN Reason: COUGH Last Admin: 05/10/19 05:55 Dose: 10 ml Hydrocortisone (Hytone 1% Ointment -) 1 applic TP BID [facility] Last Admin: 05/09/19 22:55 Dose: 1 applic Spironolactone (Aldactone -) 25 mg PO DAILY [facility] Last Admin: 05/09/19 10:27 Dose: 25 mg Warfarin Sodium (Coumadin -) 2.5 mg PO DAILY@1800 [facility] Last Admin: 05/09/19 18:02 Dose: 2.5 mg - Objective Vital Signs: Vital Signs Temperature 98.4 F 05/10/19 05:00 Pulse Rate 72 05/10/19 05:00 Respiratory Rate 18 05/10/19 05:00 Blood Pressure 99/56 L 05/10/19 05:00 O2 Sat by Pulse Oximetry (%) 97 05/09/19 20:57 Constitutional: Yes: Well Nourished, No Distress, Calm Eyes: Yes: WNL HENT: Yes: WNL Neck: Yes: WNL Cardiovascular: Yes: Regular Rate and Rhythm Respiratory: Yes: Cough Gastrointestinal: Yes: WNL, Normal Bowel Sounds, Soft ...Rectal Exam: Yes: WNL Genitourinary: Yes: WNL Musculoskeletal: Yes: WNL Extremities: Yes: WNL Integumentary: Yes: WNL Wound/Incision: Yes: Clean/Dry Neurological: Yes: WNL, Alert, Oriented Psychiatric: Yes: WNL, Alert, Oriented Labs: CBC, BMP 05/10/19 06:20 05/10/19 06:20 INR, PTT INR 2.76 (0.83-1.09) H 05/10/19 06:20 Problem List - Problems (1) Infarction of kidney Assessment/Plan: CT scan shows lack of blood flow to 1/2 right kidney per vascular. will need [facility] ac with coumadin, goal inr 2-3 continue Plavix 75 mg will monitor for s/s of bleeding Code(s): N28.0 - ISCHEMIA AND INFARCTION OF KIDNEY (2) Left ventricular dysfunction with reduced left ventricular function Assessment/Plan: TTE showed severely reduced EF 35% apical dyskinesis possible apical thrombus - most likely source of emboli cardiology note reviewed and appreciated Lexiscan large old anteroseptal [place], no ischemia. EF 17%. Akinesis anterior wall , septum and apex. No plan for RICARDO at this time as it would not change overall management- Dr Vaughan will discuss treatment options with family/pt maintain on telemetry will need further w/u for possible AICD once patient is medically managed possible [employer] Life Vest Code(s): I51.9 - HEART DISEASE, UNSPECIFIED (3) Abdominal pain Code(s): R10.9 - UNSPECIFIED ABDOMINAL PAIN Qualifiers: Abdominal location: right lower quadrant Qualified Code(s): R10.31 - Right lower quadrant pain (4) Hypomagnesemia Assessment/Plan: monitor with labs Code(s): E83.42 - HYPOMAGNESEMIA (5) Normal Holter exam Assessment/Plan: holter monitor placement on 05/03 no significant pauses of evidence of AFib, one short self limited run of OSVT, likely atrial tachy (6) Physical therapy evaluation, initial Assessment/Plan: will have PT seen pt to determine exercise tolerance while pt is on tele Code(s): Z01.89 - ENCOUNTER FOR OTHER SPECIFIED SPECIAL EXAMINATIONS (7) Prophylactic measure Assessment/Plan: FEN cardiac diet monitor electrolytes DVT Proph continue coumadin Dispo maintain as inpatient on tele full code discharge planning Code(s): Z29.9 - ENCOUNTER FOR PROPHYLACTIC MEASURES, UNSPECIFIED Visit type - Emergency Visit Emergency Visit: Yes ED Registration Date: 05/02/19 Care time: The patient presented to the Emergency Department on the above date and was hospitalized for further evaluation of their emergent condition. - New Patient This patient is new to me today: No - Critical Care Critical Care patient: No - Discharge Referral Referred to [facility] Med P.C.: No
[2019-05-10] MEDS: CLOPIDOGREL BISULFATE 75 MG TABLET (FP) PO SCH (10:17)
[2019-05-10] MEDS: SPIRONOLACTONE 25 MG TABLET (FP) PO SCH (10:17)
[2019-05-10] MEDS: ENALAPRIL MALEATE 2.5 MG TABLET (FP) PO SCH ×2 (10:17→21:27)
[2019-05-10] MEDS: HYDROCORTISONE 1% TOPICAL OINT 30 GM TUBE TP SCH ×2 (10:17→21:27)
[2019-05-10] MEDS: CARVEDILOL 25 MG TABLET (FP) PO SCH ×2 (10:17→21:27)
[2019-05-10] MEDS: WARFARIN NA 2.5 MG TABLET (FP) PO SCH (18:23)
[2019-05-10] MEDS: ATORVASTATIN CA 20 MG TABLET (FP) PO SCH (21:27)
[2019-05-11 06:26] LABS: BASO % 0.9 % (0-2.0); EOS % 9.3 % (0-4.5); HEMATOCRIT 41.9 % (35.4-49); HEMOGLOBIN 14.4 GM/dL (11.7-16.9); LYMPH % 27.4 % (8-40); MCH 31.4 pg (25.7-33.7); MCHC 34.3 g/dl (32.0-35.9); MEAN CELL VOLUME 91.7 fl (80-96); MEAN PLT VOLUME 8.1 fl (7.5-11.1); NEUT % 46.4 % (42.8-82.8); PLATELET COUNT 331 K/MM3 (134-434); RBC 4.57 M/mm3 (4.00-5.60); RDW 12.4 % (11.9-15.9); WHITE BLOOD COUNT 6.8 K/mm3 (4.0-10.0)
[2019-05-11 06:58] LABS: ALBUMIN 3.4 g/dl (3.4-5.0); BILIRUBIN,TOTAL 0.5 mg/dL (0.2-1); BLOOD UREA NITROGEN 19.8 mg/dL (7-18); CALCIUM 9.4 mg/dL (8.5-10.1); CREATININE 1.2 mg/dL (0.55-1.3); MAGNESIUM 2.6 mg/dL (1.8-2.4); POTASSIUM 4.7 mmol/L (3.5-5.1); TOT PROT 7.2 g/dl (6.4-8.2)
[2019-05-11 08:00] LABS: INR 2.37 (0.83-1.09); PROTHROMBIN TIME (PATIENT) 28.2 SEC (9.7-13.0)
--- NOTE | 2019-05-11 10:02 | PN ---
Progress Note, Physician Chief Complaint: itchy rash under right arm and on both buttocks unchanged. no chest pain, no shortness of breath. no further coughing episodes reported. History of Present Illness: Patient is a 69 year old male, with PMH of CAD (s/p stent 5-6 years ago), presenting to the ED on 05/02/2019 with with low back and abdominal pain. Patient was evaluated in the ED with a CTA negative for PE and chest pathology. However , a CT abd/pelvis revealed a right renal infarction/hypodensity, large area. Further imaging: -A echo showed severely reduced ef 35% apical dyskinesis possible apical thrombus - most likely source of emboli -Lexiscan large old anteroseptal [place], no ischemia. EF 17%. Akinesis anterior wall , septum and apex. He will require a zoll vest however he is uninsured and currently this facility is attempting to coordinate for a Zoll Life vest via chelsie through [employer] area rep. He is currently being medically managed with an mai and BB. Patient may need AICD if EF still below 35% after 90days of optimal medical management. Spoke to [facility] representative this morning to again discuss patient. The cost for Zoll vest is $3300 per month. Family informed and asking for a reduced cost of the vest vs. other options and would like to discuss further with cardiology. Family discussing taking patient back to [facility] at the end of June (pt here on a visitor visa), however family seeking to extend his stay here due to his current medical issues. Discussed that a zoll vest requires cardiology management and this type of vest may not be available in [facility] and that the Zoll vest is a vest that is designed to treat patients automatically for any dangerous rapid heart rhythms and worn by patients at risk for sudden cardiac . contact info for [employer] rep Roni Lock # [phone] - cell phone - Current Medication List Current Medications: Active Medications Acetaminophen (Tylenol -) 650 mg PO Q6H PRN PRN Reason: PAIN Last Admin: 05/09/19 10:31 Dose: 650 mg Atorvastatin Calcium (Lipitor -) 20 mg PO HS MAZIN Last Admin: 05/10/19 21:27 Dose: 20 mg Carvedilol (Coreg -) 25 mg PO BID MAZIN Last Admin: 05/10/19 21:27 Dose: 25 mg Clopidogrel Bisulfate (Plavix -) 75 mg PO DAILY [facility] Last Admin: 05/10/19 10:17 Dose: 75 mg Diphenhydramine HCl (Benadryl -) 25 mg PO Q6H PRN PRN Reason: FOR ITCHING Last Admin: 05/09/19 12:42 Dose: 25 mg Enalapril Maleate (Vasotec -) 5 mg PO BID [facility] Last Admin: 05/10/19 21:27 Dose: 5 mg Guaifenesin (Robitussin -) 10 ml PO Q6H PRN PRN Reason: COUGH Last Admin: 05/10/19 10:22 Dose: 10 ml Hydrocortisone (Hytone 1% Ointment -) 1 applic TP BID [facility] Last Admin: 05/10/19 21:27 Dose: 1 applic Spironolactone (Aldactone -) 25 mg PO DAILY [facility] Last Admin: 05/10/19 10:17 Dose: 25 mg Warfarin Sodium (Coumadin -) 2.5 mg PO DAILY@1800 [facility] Last Admin: 05/10/19 18:23 Dose: 2.5 mg - Objective Vital Signs: Vital Signs Temperature 98.3 F 05/11/19 06:00 Pulse Rate 66 05/11/19 06:00 Respiratory Rate 18 05/11/19 06:00 Blood Pressure 101/58 L 05/11/19 06:00 O2 Sat by Pulse Oximetry (%) 98 05/10/19 20:46 Constitutional: Yes: Well Nourished, No Distress Eyes: Yes: WNL HENT: Yes: WNL Neck: Yes: WNL Cardiovascular: Yes: Regular Rate and Rhythm Respiratory: Yes: CTA Bilaterally Gastrointestinal: Yes: Normal Bowel Sounds, Soft ...Rectal Exam: Yes: Deferred Genitourinary: Yes: WNL Extremities: Yes: WNL Integumentary: Yes: WNL ...Motor Strength: WNL Labs: CBC, BMP 05/11/19 05:30 05/11/19 05:30 INR, PTT INR 2.37 (0.83-1.09) H 05/11/19 05:30 Problem List - Problems (1) Infarction of kidney Assessment/Plan: CT scan shows lack of blood flow to 1/2 right kidney per vascular. will need mcc ac with coumadin, goal inr 2-3 continue Plavix 75 mg will monitor for s/s of bleeding Code(s): N28.0 - ISCHEMIA AND INFARCTION OF KIDNEY (2) Left ventricular dysfunction with reduced left ventricular function Assessment/Plan: TTE showed severely reduced EF 35% apical dyskinesis possible apical thrombus - most likely source of emboli cardiology note reviewed and appreciated Lexiscan large old anteroseptal [place], no ischemia. EF 17%. Akinesis anterior wall , septum and apex. No plan for RICARDO at this time as it would not change overall management- Dr Vaughan will discuss treatment options with family/pt maintain on telemetry will need further w/u for possible AICD once patient is medically managed possible [facility] Life Vest Code(s): I51.9 - HEART DISEASE, UNSPECIFIED (3) Abdominal pain Code(s): R10.9 - UNSPECIFIED ABDOMINAL PAIN Qualifiers: Abdominal location: right lower quadrant Qualified Code(s): R10.31 - Right lower quadrant pain (4) Hypomagnesemia Assessment/Plan: monitor with labs Code(s): E83.42 - HYPOMAGNESEMIA (5) Normal Holter exam Assessment/Plan: holter monitor placement on 05/03 no significant pauses of evidence of AFib, one short self limited run of OSVT, likely atrial tachy (6) Physical therapy evaluation, initial Assessment/Plan: will have PT seen pt to determine exercise tolerance while pt is on tele Code(s): Z01.89 - ENCOUNTER FOR OTHER SPECIFIED SPECIAL EXAMINATIONS (7) Prophylactic measure Assessment/Plan: FEN cardiac diet monitor electrolytes DVT Proph continue coumadin Dispo maintain as inpatient on tele full code discharge planning Code(s): Z29.9 - ENCOUNTER FOR PROPHYLACTIC MEASURES, UNSPECIFIED Visit type - Emergency Visit Emergency Visit: Yes ED Registration Date: 05/02/19 Care time: The patient presented to the Emergency Department on the above date and was hospitalized for further evaluation of their emergent condition. - New Patient This patient is new to me today: No - Critical Care Critical Care patient: No - Discharge Referral Referred to [facility] Med P.C.: No
[2019-05-11] MEDS: CLOPIDOGREL BISULFATE 75 MG TABLET (FP) PO SCH (10:40)
[2019-05-11] MEDS: CARVEDILOL 25 MG TABLET (FP) PO SCH ×2 (10:41→21:40)
[2019-05-11] MEDS: SPIRONOLACTONE 25 MG TABLET (FP) PO SCH (10:41)
[2019-05-11] MEDS: HYDROCORTISONE 1% TOPICAL OINT 30 GM TUBE TP SCH ×2 (10:41→21:40)
[2019-05-11] MEDS: ENALAPRIL MALEATE 2.5 MG TABLET (FP) PO SCH ×2 (10:41→21:40)
[2019-05-11] MEDS: WARFARIN NA 2.5 MG TABLET (FP) PO SCH (17:55)
[2019-05-11] MEDS: ATORVASTATIN CA 20 MG TABLET (FP) PO SCH (21:40)
[2019-05-12 07:57] LABS: BASO % 1.1 % (0-2.0); EOS % 8.7 % (0-4.5); HEMATOCRIT 41.8 % (35.4-49); HEMOGLOBIN 14.4 GM/dL (11.7-16.9); LYMPH % 25.5 % (8-40); MCH 31.7 pg (25.7-33.7); MCHC 34.5 g/dl (32.0-35.9); MEAN CELL VOLUME 91.8 fl (80-96); MEAN PLT VOLUME 7.9 fl (7.5-11.1); MONO % 12.2 % (3.8-10.2); NEUT % 52.5 % (42.8-82.8); PLATELET COUNT 363 K/MM3 (134-434); RBC 4.55 M/mm3 (4.00-5.60); RDW 12.4 % (11.9-15.9); WHITE BLOOD COUNT 6.7 K/mm3 (4.0-10.0)
[2019-05-12 08:08] LABS: INR 1.97 (0.83-1.09); PROTHROMBIN TIME (PATIENT) 23.4 SEC (9.7-13.0)
[2019-05-12 08:15] LABS: ALBUMIN 3.4 g/dl (3.4-5.0); BILIRUBIN,TOTAL 0.6 mg/dL (0.2-1); BLOOD UREA NITROGEN 24.3 mg/dL (7-18); CALCIUM 8.5 mg/dL (8.5-10.1); CREATININE 1.2 mg/dL (0.55-1.3); MAGNESIUM 2.5 mg/dL (1.8-2.4); POTASSIUM 4.9 mmol/L (3.5-5.1); TOT PROT 7.5 g/dl (6.4-8.2)
[2019-05-12] MEDS: CLOPIDOGREL BISULFATE 75 MG TABLET (FP) PO SCH (11:10)
--- NOTE | 2019-05-12 11:10 | PN ---
Progress Note, Physician History of Present Illness: 69 y/o male, with PMH of CAD (s/p stent 5-6 years ago), presenting with low back and abdominal pain. Patient was evaluated in the ED yesterday, with a CTA negative for PE and chest pathology. He states his pain remains over the low back that radiates to the RLQ. Endorses some relief with Tylenol. Denies fever, chills, chest pain, SOB, palpitation, dizziness, weakness, N, V, D , bladder and bowel problems, leg swelling, No sick contacts or travel. No new changes in medications. No suspicious food intake Allergies: NKA, NKDA Past Medical History: CAD (s/p stent) Social history: Lives with family. Former smoker. No ETOH or drug use. Surgical history: Stent Meds: as documented in EMR PMD: NOS (doctor in [facility]) - Current Medication List Current Medications: Active Medications Acetaminophen (Tylenol -) 650 mg PO Q6H PRN PRN Reason: PAIN Last Admin: 05/09/19 10:31 Dose: 650 mg Atorvastatin Calcium (Lipitor -) 20 mg PO HS [facility] Last Admin: 05/11/19 21:40 Dose: 20 mg Carvedilol (Coreg -) 25 mg PO BID [facility] Last Admin: 05/11/19 21:40 Dose: 25 mg Clopidogrel Bisulfate (Plavix -) 75 mg PO DAILY [facility] Last Admin: 05/11/19 10:40 Dose: 75 mg Diphenhydramine HCl (Benadryl -) 25 mg PO Q6H PRN PRN Reason: FOR ITCHING Last Admin: 05/09/19 12:42 Dose: 25 mg Enalapril Maleate (Vasotec -) 5 mg PO BID [facility] Last Admin: 05/11/19 21:40 Dose: 5 mg Guaifenesin (Robitussin -) 10 ml PO Q6H PRN PRN Reason: COUGH Last Admin: 05/10/19 10:22 Dose: 10 ml Hydrocortisone (Hytone 1% Ointment -) 1 applic TP BID [facility] Last Admin: 05/11/19 21:40 Dose: 1 applic Spironolactone (Aldactone -) 25 mg PO DAILY [facility] Last Admin: 05/11/19 10:41 Dose: 25 mg Warfarin Sodium (Coumadin -) 2.5 mg PO DAILY@1800 [facility] Last Admin: 05/11/19 17:55 Dose: 2.5 mg - Objective Vital Signs: Vital Signs Temperature 97.9 F 05/12/19 06:00 Pulse Rate 59 L 05/12/19 06:00 Respiratory Rate 16 05/12/19 06:00 Blood Pressure 98/59 L 05/12/19 06:00 O2 Sat by Pulse Oximetry (%) 98 05/11/19 21:00 Eyes: Yes: WNL, Conjunctiva Clear, EOM Intact HENT: Yes: WNL, Atraumatic, Normocephalic Neck: Yes: WNL, Supple, Trachea Midline Cardiovascular: Yes: WNL, Regular Rate and Rhythm Respiratory: Yes: WNL, Regular, CTA Bilaterally Gastrointestinal: Yes: WNL, Normal Bowel Sounds Genitourinary: Yes: WNL Musculoskeletal: Yes: WNL Extremities: Yes: WNL Edema: No Integumentary: Yes: WNL Neurological: Yes: WNL, Alert, Oriented ...Motor Strength: WNL Psychiatric: Yes: WNL Labs: CBC, BMP 05/12/19 07:37 05/12/19 07:37 INR, PTT INR 1.97 (0.83-1.09) H 05/12/19 07:37 Problem List - Problems (1) Abdominal pain Code(s): R10.9 - UNSPECIFIED ABDOMINAL PAIN Qualifiers: Abdominal location: right lower quadrant Qualified Code(s): R10.31 - Right lower quadrant pain (2) Infarction of kidney Code(s): N28.0 - ISCHEMIA AND INFARCTION OF KIDNEY (3) Prophylactic measure Code(s): Z29.9 - ENCOUNTER FOR PROPHYLACTIC MEASURES, UNSPECIFIED (4) Pain Code(s): R52 - PAIN, UNSPECIFIED Assessment/Plan Acute presentation of a partial renal infarct suggests an embolic source. ashd s/p ant apical mi s/p pci 5-6 years ago echo showed severely reduced ef 35% apical dyskinesis possible apical thrombus - most likely source of emboli htn hlp ac as per vascular surgery will need long ter ac with coumadin - INR above therapeutic restart Plavix- uncleare why patient is on Plavix not on ASA - patient and family do not know 24 holter to r/o af telemetry Lexiscan large old anteroseptal CT, no ischemia. EF 17%. Akinesis anterior wall , septum and apex. No plan for RICARDO at this time as it would not change overall management- even if no thrombus is vissible in dyskinetic apex (it could have gone and emboli renal artery) patient still will need senior living AC to prevent another thrombus formation. maintain on telemetry Holter negative for AF will need further w/u for possible AICD per CLIENT SPECIALIST - possible [employer] Life Vest however pt is self-left message for [employer] area rep Roni Salazar [phone] regarding payment options or chelsie case Andrew bb being optimized If after 90 day of optimal medical rx ef still below 35 % will need AICD. d/w daughter all questions answered. D/w [facility] nursing unit coordinator. Plan of treatment explained as autlined in this note. due to borderline bp medical regiment seems to be optimized at present Would not increase vasotec dose at present. Tolerating Coreg 25 BID well. K today 4.9 -watch /monitor for hyperkalemia and d/c aldactone if needed. Risks of sudden cardiac explained to the daughter. d/w daughter all questions answered. D/w [facility] nursing unit coordinator. Plan of treatment explained as outlined in this note.
[2019-05-12] MEDS: CARVEDILOL 25 MG TABLET (FP) PO SCH ×2 (11:13→22:03)
[2019-05-12] MEDS: ENALAPRIL MALEATE 2.5 MG TABLET (FP) PO SCH ×2 (11:13→22:03)
[2019-05-12] MEDS: SPIRONOLACTONE 25 MG TABLET (FP) PO SCH (11:13)
[2019-05-12] MEDS: HYDROCORTISONE 1% TOPICAL OINT 30 GM TUBE TP SCH ×2 (11:16→22:03)
[2019-05-12] MEDS: guaiFENesin 200 MG/10 ML 10 ML UNIT-DOSE CUPS PO PRN (11:22)
--- NOTE | 2019-05-12 14:59 | PN ---
Progress Note, Physician Chief Complaint: itchy rash under right arm and on both buttocks improved no chest pain, no shortness of breath. no further coughing episodes reported. vehicle leasing and rental manager shows possible runs of vtach, vs artifact. cardiology following. History of Present Illness: Patient is a 69 year old male, with PMH of CAD (s/p stent 5-6 years ago), presenting to the ED on 05/02/2019 with with low back and abdominal pain. Patient was evaluated in the ED with a CTA negative for PE and chest pathology. However , a CT abd/pelvis revealed a right renal infarction/hypodensity, large area. Further imaging: -A echo showed severely reduced ef 35% apical dyskinesis possible apical thrombus - most likely source of emboli -Lexiscan large old anteroseptal [place], no ischemia. EF 17%. Akinesis anterior wall , septum and apex. He will require a zoll vest however he is uninsured and currently this facility is attempting to coordinate for a [employer] Life vest via chelsie through [employer] area rep. He is currently being medically managed with an mai and BB. Patient may need AICD if EF still below 35% after 90days of optimal medical management. per [employer] customer sales representative, the cost for Zoll vest is $3300 per month. Family informed and asking for a reduced cost of the vest vs. other options and would like to discuss further with cardiology. Family discussing taking patient back to [facility] at the end of June (pt here on a visitor visa), however family seeking to extend his stay here due to his current medical issues. Discussed that a zoll vest requires cardiology management and this type of vest may not be available in [facility] and that the Zoll vest is a vest that is designed to treat patients automatically for any dangerous rapid heart rhythms and worn by patients at risk for sudden cardiac . contact info for [employer] rep Roni Lock # [phone] - cell phone - Current Medication List Current Medications: Active Medications Acetaminophen (Tylenol -) 650 mg PO Q6H PRN PRN Reason: PAIN Last Admin: 05/09/19 10:31 Dose: 650 mg Atorvastatin Calcium (Lipitor -) 20 mg PO HS [facility] Last Admin: 05/11/19 21:40 Dose: 20 mg Carvedilol (Coreg -) 25 mg PO BID [facility] Last Admin: 05/12/19 11:13 Dose: 25 mg Clopidogrel Bisulfate (Plavix -) 75 mg PO DAILY [facility] Last Admin: 05/12/19 11:10 Dose: 75 mg Diphenhydramine HCl (Benadryl -) 25 mg PO Q6H PRN PRN Reason: FOR ITCHING Last Admin: 05/09/19 12:42 Dose: 25 mg Enalapril Maleate (Vasotec -) 5 mg PO BID [facility] Last Admin: 05/12/19 11:13 Dose: 5 mg Guaifenesin (Robitussin -) 10 ml PO Q6H PRN PRN Reason: COUGH Last Admin: 05/12/19 11:22 Dose: 10 ml Hydrocortisone (Hytone 1% Ointment -) 1 applic TP BID [facility] Last Admin: 05/12/19 11:16 Dose: 1 applic Spironolactone (Aldactone -) 25 mg PO DAILY [facility] Last Admin: 05/12/19 11:13 Dose: 25 mg Warfarin Sodium (Coumadin -) 2.5 mg PO DAILY@1800 [facility] Last Admin: 05/11/19 17:55 Dose: 2.5 mg - Objective Vital Signs: Vital Signs Temperature 98.5 F 05/12/19 11:10 Pulse Rate 64 05/12/19 11:10 Respiratory Rate 16 05/12/19 11:10 Blood Pressure 103/56 L 05/12/19 11:10 O2 Sat by Pulse Oximetry (%) 97 05/12/19 11:10 Constitutional: Yes: Well Nourished, No Distress, Calm Eyes: Yes: WNL HENT: Yes: WNL Neck: Yes: WNL Cardiovascular: Yes: Regular Rate and Rhythm Respiratory: Yes: WNL Gastrointestinal: Yes: WNL, Normal Bowel Sounds ...Rectal Exam: Yes: Deferred Genitourinary: Yes: WNL Integumentary: Yes: WNL, Rash (rash improved with hydrocoritisone) Neurological: Yes: WNL, Alert, Oriented ...Motor Strength: WNL Psychiatric: Yes: WNL Labs: CBC, BMP 05/12/19 07:37 05/12/19 07:37 INR, PTT INR 1.97 (0.83-1.09) H 05/12/19 07:37 Problem List - Problems (1) Infarction of kidney Assessment/Plan: CT scan shows lack of blood flow to 1/2 right kidney per vascular. will need exterminator ac with coumadin, goal inr 2-3 continue Plavix 75 mg will monitor for s/s of bleeding Code(s): N28.0 - ISCHEMIA AND INFARCTION OF KIDNEY (2) Left ventricular dysfunction with reduced left ventricular function Assessment/Plan: TTE showed severely reduced EF 35% apical dyskinesis possible apical thrombus - most likely source of emboli cardiology note reviewed and appreciated Lexiscan large old anteroseptal [place], no ischemia. EF 17%. Akinesis anterior wall , septum and apex. No plan for RICARDO at this time as it would not change overall management- Dr Vaughan will discuss treatment options with family/pt maintain on telemetry will need further w/u for possible AICD once patient is medically managed possible [employer] Life Vest Code(s): I51.9 - HEART DISEASE, UNSPECIFIED (3) Abdominal pain Code(s): R10.9 - UNSPECIFIED ABDOMINAL PAIN Qualifiers: Abdominal location: right lower quadrant Qualified Code(s): R10.31 - Right lower quadrant pain (4) Hypomagnesemia Assessment/Plan: monitor with labs Code(s): E83.42 - HYPOMAGNESEMIA (5) Normal Holter exam Assessment/Plan: holter monitor placement on 05/03 no significant pauses of evidence of AFib, one short self limited run of OSVT, likely atrial tachy (6) Physical therapy evaluation, initial Assessment/Plan: will have PT seen pt to determine exercise tolerance while pt is on tele Code(s): Z01.89 - ENCOUNTER FOR OTHER SPECIFIED SPECIAL EXAMINATIONS (7) Prophylactic measure Assessment/Plan: FEN cardiac diet monitor electrolytes DVT Proph continue coumadin Dispo maintain as inpatient on tele full code discharge planning Code(s): Z29.9 - ENCOUNTER FOR PROPHYLACTIC MEASURES, UNSPECIFIED Visit type - Emergency Visit Emergency Visit: Yes ED Registration Date: 05/02/19 Care time: The patient presented to the Emergency Department on the above date and was hospitalized for further evaluation of their emergent condition. - New Patient This patient is new to me today: No - Critical Care Critical Care patient: No - Discharge Referral Referred to [facility] Med P.C.: No
[2019-05-12] MEDS: WARFARIN NA 2 MG TABLET (UD) PO SCH (17:16)
[2019-05-12] MEDS: ATORVASTATIN CA 20 MG TABLET (FP) PO SCH (22:03)
--- NOTE | 2019-05-13 09:27 | PN ---
Progress Note, Physician Chief Complaint: no chest pain, no shortness of breath. no further coughing episodes reported. History of Present Illness: Patient is a 69 year old male, with PMH of CAD (s/p stent 5-6 years ago), presenting to the ED on 05/02/2019 with with low back and abdominal pain. Patient was evaluated in the ED with a CTA negative for PE and chest pathology. However , a CT abd/pelvis revealed a right renal infarction/hypodensity, large area. Further imaging: -A echo showed severely reduced ef 35% apical dyskinesis possible apical thrombus - most likely source of emboli -Lexiscan large old anteroseptal [place], no ischemia. EF 17%. Akinesis anterior wall , septum and apex. He will require a zoll vest however he is uninsured and currently this facility is attempting to coordinate for a [employer] Life vest via chelsie through [employer] area rep. He is currently being medically managed with an mai and BB. Patient may need AICD if EF still below 35% after 90days of optimal medical management. per [employer] patient intake representative, the cost for Zoll vest is $3300 per month. Family informed and asking for a reduced cost of the vest vs. other options and would like to discuss further with cardiology. Family discussing taking patient back to [facility] at the end of June (pt here on a visitor visa), however family seeking to extend his stay here due to his current medical issues. Discussed that a zoll vest requires cardiology management and this type of vest may not be available in [facility] and that the Zoll vest is a vest that is designed to treat patients automatically for any dangerous rapid heart rhythms and worn by patients at risk for sudden cardiac . contact info for [employer] rep Roni Lock # [phone] - cell phone - Current Medication List Current Medications: Active Medications Acetaminophen (Tylenol -) 650 mg PO Q6H PRN PRN Reason: PAIN Last Admin: 05/09/19 10:31 Dose: 650 mg Atorvastatin Calcium (Lipitor -) 20 mg PO HS [facility] Last Admin: 05/12/19 22:03 Dose: 20 mg Carvedilol (Coreg -) 25 mg PO BID [facility] Last Admin: 05/12/19 22:03 Dose: 25 mg Clopidogrel Bisulfate (Plavix -) 75 mg PO DAILY [facility] Last Admin: 05/12/19 11:10 Dose: 75 mg Diphenhydramine HCl (Benadryl -) 25 mg PO Q6H PRN PRN Reason: FOR ITCHING Last Admin: 05/09/19 12:42 Dose: 25 mg Enalapril Maleate (Vasotec -) 5 mg PO BID [facility] Last Admin: 05/12/19 22:03 Dose: 5 mg Guaifenesin (Robitussin -) 10 ml PO Q6H PRN PRN Reason: COUGH Last Admin: 05/12/19 11:22 Dose: 10 ml Hydrocortisone (Hytone 1% Ointment -) 1 applic TP BID [facility] Last Admin: 05/12/19 22:03 Dose: 1 applic Spironolactone (Aldactone -) 25 mg PO DAILY [facility] Last Admin: 05/12/19 11:13 Dose: 25 mg Warfarin Sodium (Coumadin -) 4 mg PO DAILY@1800 [facility] Last Admin: 05/12/19 17:16 Dose: 4 mg - Objective Vital Signs: Vital Signs Temperature 97.7 F 05/13/19 06:00 Pulse Rate 63 05/13/19 06:00 Respiratory Rate 20 05/13/19 06:00 Blood Pressure 100/65 05/13/19 06:00 O2 Sat by Pulse Oximetry (%) 95 05/12/19 21:00 Constitutional: Yes: Well Nourished, No Distress, Calm Eyes: Yes: WNL HENT: Yes: WNL Neck: Yes: WNL Cardiovascular: Yes: WNL, Regular Rate and Rhythm Respiratory: Yes: WNL Gastrointestinal: Yes: WNL, Normal Bowel Sounds ...Rectal Exam: Yes: Deferred Genitourinary: Yes: WNL Breast(s): Yes: WNL Musculoskeletal: Yes: WNL Integumentary: Yes: Rash (rash improved) Psychiatric: Yes: WNL Labs: CBC, BMP 05/12/19 07:37 05/12/19 07:37 INR, PTT INR 1.97 (0.83-1.09) H 05/12/19 07:37 Problem List - Problems (1) Infarction of kidney Assessment/Plan: CT scan shows lack of blood flow to 1/2 right kidney per vascular. will need ocean transportation intermediary ac with coumadin, goal inr 2-3 continue Plavix 75 mg will monitor for s/s of bleeding Code(s): N28.0 - ISCHEMIA AND INFARCTION OF KIDNEY (2) Left ventricular dysfunction with reduced left ventricular function Assessment/Plan: TTE showed severely reduced EF 35% apical dyskinesis possible apical thrombus - most likely source of emboli cardiology note reviewed and appreciated Lexiscan large old anteroseptal [place], no ischemia. EF 17%. Akinesis anterior wall , septum and apex. No plan for RICARDO at this time as it would not change overall management- Dr Vaughan will discuss treatment options with family/pt maintain on telemetry will need further w/u for possible AICD once patient is medically managed possible [employer] Life Vest Code(s): I51.9 - HEART DISEASE, UNSPECIFIED (3) Abdominal pain Code(s): R10.9 - UNSPECIFIED ABDOMINAL PAIN Qualifiers: Abdominal location: right lower quadrant Qualified Code(s): R10.31 - Right lower quadrant pain (4) Hypomagnesemia Assessment/Plan: monitor with labs Code(s): E83.42 - HYPOMAGNESEMIA (5) Normal Holter exam Assessment/Plan: holter monitor placement on 05/03 no significant pauses of evidence of AFib, one short self limited run of OSVT, likely atrial tachy (6) Physical therapy evaluation, initial Assessment/Plan: will have PT seen pt to determine exercise tolerance while pt is on tele Code(s): Z01.89 - ENCOUNTER FOR OTHER SPECIFIED SPECIAL EXAMINATIONS (7) Prophylactic measure Assessment/Plan: FEN cardiac diet monitor electrolytes DVT Proph continue coumadin Dispo maintain as inpatient on tele full code discharge planning Code(s): Z29.9 - ENCOUNTER FOR PROPHYLACTIC MEASURES, UNSPECIFIED Visit type - Emergency Visit Emergency Visit: Yes ED Registration Date: 05/02/19 Care time: The patient presented to the Emergency Department on the above date and was hospitalized for further evaluation of their emergent condition. - New Patient This patient is new to me today: No - Critical Care Critical Care patient: No - Discharge Referral Referred to [facility] Med P.C.: No
[2019-05-13 09:50] LABS: EOS % 8.4 % (0-4.5); HEMATOCRIT 41.5 % (35.4-49); HEMOGLOBIN 14.6 GM/dL (11.7-16.9); LYMPH % 28.9 % (8-40); MCH 31.9 pg (25.7-33.7); MCHC 35.1 g/dl (32.0-35.9); MEAN CELL VOLUME 90.7 fl (80-96); MEAN PLT VOLUME 7.9 fl (7.5-11.1); MONO % 8.2 % (3.8-10.2); NEUT % 53.5 % (42.8-82.8); RBC 4.58 M/mm3 (4.00-5.60); RDW 12.4 % (11.9-15.9); WHITE BLOOD COUNT 5.6 K/mm3 (4.0-10.0)
[2019-05-13 10:02] LABS: PLATELET COUNT 393 K/MM3 (134-434)
[2019-05-13 10:04] LABS: INR 1.85 (0.83-1.09)
[2019-05-13 10:18] LABS: ALBUMIN 3.4 g/dl (3.4-5.0); BILIRUBIN,TOTAL 0.4 mg/dL (0.2-1); BLOOD UREA NITROGEN 29.6 mg/dL (7-18); CREATININE 1.2 mg/dL (0.55-1.3); MAGNESIUM 2.6 mg/dL (1.8-2.4); POTASSIUM 4.5 mmol/L (3.5-5.1); TOT PROT 7.5 g/dl (6.4-8.2)
[2019-05-13] MEDS: SPIRONOLACTONE 25 MG TABLET (FP) PO SCH (10:26)
[2019-05-13] MEDS: CLOPIDOGREL BISULFATE 75 MG TABLET (FP) PO SCH (10:26)
[2019-05-13] MEDS: CARVEDILOL 25 MG TABLET (FP) PO SCH ×2 (10:26→22:00)
[2019-05-13] MEDS: ENALAPRIL MALEATE 2.5 MG TABLET (FP) PO SCH ×2 (10:27→22:01)
[2019-05-13] MEDS: HYDROCORTISONE 1% TOPICAL OINT 30 GM TUBE TP SCH ×2 (10:28→22:02)
[2019-05-13] MEDS ORDERED: SODIUM CHLORIDE 250 ML IV STA (14:05)
[2019-05-13] MEDS: WARFARIN NA 2 MG TABLET (UD) PO SCH (17:42)
[2019-05-13] MEDS: ATORVASTATIN CA 20 MG TABLET (FP) PO SCH (22:02)
--- NOTE | 2019-05-14 09:18 | PN ---
Progress Note, Physician Chief Complaint: no chest pain, no shortness of breath. no further coughing episodes reported. telemonitor: nsr 60s History of Present Illness: Patient is a 69 year old male, with PMH of CAD (s/p stent 5-6 years ago), presenting to the ED on 05/02/2019 with with low back and abdominal pain. Patient was evaluated in the ED with a CTA negative for PE and chest pathology. However , a CT abd/pelvis revealed a right renal infarction/hypodensity, large area. Further imaging: -A echo showed severely reduced ef 35% apical dyskinesis possible apical thrombus - most likely source of emboli -Lexiscan large old anteroseptal NH, no ischemia. EF 17%. Akinesis anterior wall , septum and apex. He will require a zoll vest however he is uninsured and currently this facility is attempting to coordinate for a [employer] Life vest via chelsie through [employer] area rep. He is currently being medically managed with an mai and BB. Patient may need AICD if EF still below 35% after 90days of optimal medical management. per [employer] commercial sales representative, the cost for Zoll vest is $3300 per month. Family informed and asking for a reduced cost of the vest vs. other options and would like to discuss further with cardiology. Family discussing taking patient back to [facility] at the end of June (pt here on a visitor visa), however family seeking to extend his stay here due to his current medical issues. Discussed that a zoll vest requires cardiology management and this type of vest may not be available in [facility] and that the Zoll vest is a vest that is designed to treat patients automatically for any dangerous rapid heart rhythms and worn by patients at risk for sudden cardiac . contact info for [employer] rep Roni Lock # [phone] - cell phone - Current Medication List Current Medications: Active Medications Acetaminophen (Tylenol -) 650 mg PO Q6H PRN PRN Reason: PAIN Last Admin: 05/09/19 10:31 Dose: 650 mg Atorvastatin Calcium (Lipitor -) 20 mg PO HS [facility]IN Last Admin: 05/13/19 22:02 Dose: 20 mg Carvedilol (Coreg -) 25 mg PO BID MAZIN Last Admin: 05/13/19 22:00 Dose: Not Given Clopidogrel Bisulfate (Plavix -) 75 mg PO DAILY [facility] Last Admin: 05/13/19 10:26 Dose: 75 mg Diphenhydramine HCl (Benadryl -) 25 mg PO Q6H PRN PRN Reason: FOR ITCHING Last Admin: 05/09/19 12:42 Dose: 25 mg Enalapril Maleate (Vasotec -) 5 mg PO BID [facility] Last Admin: 05/13/19 22:01 Dose: Not Given Guaifenesin (Robitussin -) 10 ml PO Q6H PRN PRN Reason: COUGH Last Admin: 05/12/19 11:22 Dose: 10 ml Hydrocortisone (Hytone 1% Ointment -) 1 applic TP BID [facility] Last Admin: 05/13/19 22:02 Dose: 1 applic Spironolactone (Aldactone -) 25 mg PO DAILY [facility] Last Admin: 05/13/19 10:26 Dose: 25 mg - Objective Vital Signs: Vital Signs Temperature 98.0 F 05/14/19 06:00 Pulse Rate 60 05/14/19 06:00 Respiratory Rate 20 05/14/19 06:00 Blood Pressure 121/68 05/14/19 06:00 O2 Sat by Pulse Oximetry (%) 95 05/13/19 21:00 Constitutional: Yes: Well Nourished, No Distress, Calm Eyes: Yes: WNL HENT: Yes: WNL Neck: Yes: WNL Cardiovascular: Yes: WNL, Regular Rate and Rhythm Respiratory: Yes: WNL Gastrointestinal: Yes: WNL, Normal Bowel Sounds ...Rectal Exam: Yes: Deferred Edema: No Integumentary: Yes: WNL Neurological: Yes: WNL, Alert, Oriented Labs: CBC, BMP 05/13/19 09:19 05/13/19 09:19 INR, PTT INR 1.85 (0.83-1.09) H 05/13/19 09:19 Problem List - Problems (1) Infarction of kidney Assessment/Plan: CT scan shows lack of blood flow to 1/2 right kidney per vascular. will need half-way ac with coumadin, goal inr 2-3 continue Plavix 75 mg will monitor for s/s of bleeding Code(s): N28.0 - ISCHEMIA AND INFARCTION OF KIDNEY (2) Left ventricular dysfunction with reduced left ventricular function Assessment/Plan: TTE showed severely reduced EF 35% apical dyskinesis possible apical thrombus - most likely source of emboli cardiology note reviewed and appreciated Lexiscan large old anteroseptal NH, no ischemia. EF 17%. Akinesis anterior wall , septum and apex. No plan for RICARDO at this time as it would not change overall management- Dr Vaughan will discuss treatment options with family/pt maintain on telemetry will need further w/u for possible AICD once patient is medically managed possible [employer] Life Vest Code(s): I51.9 - HEART DISEASE, UNSPECIFIED (3) Abdominal pain Code(s): R10.9 - UNSPECIFIED ABDOMINAL PAIN Qualifiers: Abdominal location: right lower quadrant Qualified Code(s): R10.31 - Right lower quadrant pain (4) Hypomagnesemia Assessment/Plan: monitor with labs (5) Normal Holter exam Assessment/Plan: holter monitor placement on 05/03 no significant pauses of evidence of AFib, one short self limited run of OSVT, likely atrial tachy (6) Physical therapy evaluation, initial Assessment/Plan: will have PT seen pt to determine exercise tolerance while pt is on tele Code(s): Z01.89 - ENCOUNTER FOR OTHER SPECIFIED SPECIAL EXAMINATIONS (7) Prophylactic measure Assessment/Plan: FEN cardiac diet monitor electrolytes DVT Proph continue coumadin Dispo maintain as inpatient on tele full code discharge planning Code(s): Z29.9 - ENCOUNTER FOR PROPHYLACTIC MEASURES, UNSPECIFIED Visit type - Emergency Visit Emergency Visit: Yes ED Registration Date: 05/02/19 Care time: The patient presented to the Emergency Department on the above date and was hospitalized for further evaluation of their emergent condition. - New Patient This patient is new to me today: No - Critical Care Critical Care patient: No - Discharge Referral Referred to [facility] Med P.C.: No
[2019-05-14 09:29] LABS: BASO % 0.9 % (0-2.0); HEMATOCRIT 43.3 % (35.4-49); HEMOGLOBIN 15.1 GM/dL (11.7-16.9); LYMPH % 29.1 % (8-40); MCH 31.9 pg (25.7-33.7); MCHC 34.8 g/dl (32.0-35.9); MEAN CELL VOLUME 91.5 fl (80-96); MEAN PLT VOLUME 7.9 fl (7.5-11.1); MONO % 7.6 % (3.8-10.2); NEUT % 54.4 % (42.8-82.8); RBC 4.73 M/mm3 (4.00-5.60); RDW 12.1 % (11.9-15.9); WHITE BLOOD COUNT 6.6 K/mm3 (4.0-10.0)
[2019-05-14 09:41] LABS: PLATELET COUNT 403 K/MM3 (134-434)
[2019-05-14 09:43] LABS: INR 1.97 (0.83-1.09); PROTHROMBIN TIME (PATIENT) 23.4 SEC (9.7-13.0)
[2019-05-14 09:59] LABS: ALBUMIN 3.5 g/dl (3.4-5.0); BILIRUBIN,TOTAL 0.4 mg/dL (0.2-1); BLOOD UREA NITROGEN 29.8 mg/dL (7-18); CALCIUM 9.1 mg/dL (8.5-10.1); CREATININE 1.2 mg/dL (0.55-1.3); MAGNESIUM 2.5 mg/dL (1.8-2.4); POTASSIUM 4.4 mmol/L (3.5-5.1); TOT PROT 7.7 g/dl (6.4-8.2)
[2019-05-14] MEDS: CLOPIDOGREL BISULFATE 75 MG TABLET (FP) PO SCH (10:11)
[2019-05-14] MEDS: HYDROCORTISONE 1% TOPICAL OINT 30 GM TUBE TP SCH ×2 (11:05→22:01)
[2019-05-14] MEDS: ENALAPRIL MALEATE 2.5 MG TABLET (FP) PO SCH ×2 (11:05→21:58)
[2019-05-14] MEDS: CARVEDILOL 25 MG TABLET (FP) PO SCH ×2 (11:05→22:01)
[2019-05-14] MEDS: SPIRONOLACTONE 25 MG TABLET (FP) PO SCH (11:05)
[2019-05-14] MEDS: WARFARIN NA 5 MG TABLET (UD) PO SCH (17:49)
[2019-05-14] MEDS: ATORVASTATIN CA 20 MG TABLET (FP) PO SCH (21:56)
[2019-05-15] MEDS: ENALAPRIL MALEATE 2.5 MG TABLET (FP) PO SCH ×2 (11:29→21:03)
[2019-05-15] MEDS: CARVEDILOL 25 MG TABLET (FP) PO SCH ×2 (11:30→21:03)
[2019-05-15] MEDS: CLOPIDOGREL BISULFATE 75 MG TABLET (FP) PO SCH (11:30)
[2019-05-15] MEDS: HYDROCORTISONE 1% TOPICAL OINT 30 GM TUBE TP SCH ×2 (11:30→21:03)
[2019-05-15] MEDS: SPIRONOLACTONE 25 MG TABLET (FP) PO SCH (11:30)
[2019-05-15 12:59] LABS: HEMOGLOBIN 14.9 GM/dL (11.7-16.9); MCHC 34.5 g/dl (32.0-35.9); WHITE BLOOD COUNT 6.4 K/mm3 (4.0-10.0)
[2019-05-15 13:29] LABS: INR 2.08 (0.83-1.09); PROTHROMBIN TIME (PATIENT) 24.7 SEC (9.7-13.0)
[2019-05-15 13:30] LABS: ALBUMIN 3.5 g/dl (3.4-5.0); BILIRUBIN,TOTAL 0.3 mg/dL (0.2-1); BLOOD UREA NITROGEN 28.3 mg/dL (7-18); CALCIUM 9.2 mg/dL (8.5-10.1); CREATININE 1.2 mg/dL (0.55-1.3); MAGNESIUM 2.5 mg/dL (1.8-2.4); POTASSIUM 4.9 mmol/L (3.5-5.1); TOT PROT 7.6 g/dl (6.4-8.2)
--- NOTE | 2019-05-15 13:32 | PN ---
Progress Note, Physician Chief Complaint: no chest pain, no shortness of breath, patient ambulating w/o any dyspnea. no further coughing episodes reported. telemonitor: nsr 60s. per cardiac monitor technician 2 episodes of nsvt at 0600 and 0900 this am. patient is asymptomatic, vitals stable. History of Present Illness: Patient is a 69 year old male, with PMH of CAD (s/p stent 5-6 years ago), presenting to the ED on 05/02/2019 with with low back and abdominal pain. Patient was evaluated in the ED with a CTA negative for PE and chest pathology. However , a CT abd/pelvis revealed a right renal infarction/hypodensity, large area. He has been started on coumadin and has been evaluated by vascular. During hospital stay, an echo showed severely reduced ef 35% apical dyskinesis possible apical thrombus - most likely source of emboli. A lexiscan showed an old large anteroseptal ID, no ischemia. EF 17%. Patient will require a Zoll Life vest before discharge. He was seen and evaluated by cardiology who recommended Zoll life vest, and medical management with beta blockers and mai inhibitors. Patient may need AICD if EF still below 35% after 90days of optimal medical management per talend developer. Patient will require a zoll life vest however he is uninsured and currently this facility is attempting to coordinate for a Zoll Life vest via chelsie vs family paying for it. However, patient family unable to secure funds for the vest. Patient cannot be fitted for the vest until family signs vest lease. per [employer] hospital sales representative, the cost for Zoll vest is $3300 per month. Family informed and asking for a reduced cost of the vest vs. other options and would like to discuss further with cardiology. Family states that patient can stay in the [place] until October (was supposed to leave June, but family willing to keep him here til October to resolve cardiac issues). Discussed with family that a zoll vest requires cardiology management and this type of vest may not be available in [facility] and that the Zoll vest is a vest that is designed to treat patients automatically for any dangerous rapid heart rhythms and worn by patients at risk for sudden cardiac . contact info for [employer] Roni Ashvin # [phone] - cell phone Further imaging: -A echo showed severely reduced ef 35% apical dyskinesis possible apical thrombus - most likely source of emboli -Lexiscan large old anteroseptal ID, no ischemia. EF 17%. Akinesis anterior wall , septum and apex. - Current Medication List Current Medications: Active Medications Acetaminophen (Tylenol -) 650 mg PO Q6H PRN PRN Reason: PAIN Last Admin: 05/09/19 10:31 Dose: 650 mg Atorvastatin Calcium (Lipitor -) 20 mg PO HS [facility] Last Admin: 05/14/19 21:56 Dose: 20 mg Carvedilol (Coreg -) 25 mg PO BID [facility] Last Admin: 05/15/19 11:30 Dose: 25 mg Clopidogrel Bisulfate (Plavix -) 75 mg PO DAILY [facility] Last Admin: 05/15/19 11:30 Dose: 75 mg Diphenhydramine HCl (Benadryl -) 25 mg PO Q6H PRN PRN Reason: FOR ITCHING Last Admin: 05/09/19 12:42 Dose: 25 mg Enalapril Maleate (Vasotec -) 5 mg PO BID [facility] Last Admin: 05/15/19 11:29 Dose: 5 mg Guaifenesin (Robitussin -) 10 ml PO Q6H PRN PRN Reason: COUGH Last Admin: 05/12/19 11:22 Dose: 10 ml Hydrocortisone (Hytone 1% Ointment -) 1 applic TP BID [facility] Last Admin: 05/15/19 11:30 Dose: 1 applic Spironolactone (Aldactone -) 25 mg PO DAILY [facility] Last Admin: 05/15/19 11:30 Dose: 25 mg Warfarin Sodium (Coumadin -) 5 mg PO DAILY@1800 [facility] Last Admin: 05/14/19 17:49 Dose: 5 mg - Objective Vital Signs: Vital Signs Temperature 97.8 F 05/15/19 10:00 Pulse Rate 57 L 05/15/19 10:00 Respiratory Rate 18 05/15/19 10:00 Blood Pressure 115/63 05/15/19 10:00 O2 Sat by Pulse Oximetry (%) 97 05/14/19 21:00 Constitutional: Yes: Well Nourished, No Distress, Calm Eyes: Yes: WNL HENT: Yes: WNL Neck: Yes: WNL Cardiovascular: Yes: WNL Respiratory: Yes: WNL, Regular, CTA Bilaterally Gastrointestinal: Yes: WNL, Normal Bowel Sounds ...Rectal Exam: Yes: Deferred Genitourinary: Yes: WNL Musculoskeletal: Yes: WNL Extremities: Yes: WNL Edema: No Integumentary: Yes: WNL Neurological: Yes: WNL, Alert Labs: INR, PTT INR 2.08 (0.83-1.09) H 05/15/19 12:30 Problem List - Problems (1) Infarction of kidney Assessment/Plan: CT scan shows lack of blood flow to 1/2 right kidney per vascular. will need [facility]entiary ac with coumadin, goal inr 2-3 continue Plavix 75 mg will monitor for s/s of bleeding Code(s): N28.0 - ISCHEMIA AND INFARCTION OF KIDNEY (2) Left ventricular dysfunction with reduced left ventricular function Assessment/Plan: TTE showed severely reduced EF 35% apical dyskinesis possible apical thrombus - most likely source of emboli cardiology note reviewed and appreciated Lexiscan large old anteroseptal ID, no ischemia. EF 17%. Akinesis anterior wall , septum and apex. No plan for RICARDO at this time as it would not change overall management- Dr Vaughan will discuss treatment options with family/pt maintain on telemetry will need further w/u for possible AICD once patient is medically managed possible Zoll Life Vest Code(s): I51.9 - HEART DISEASE, UNSPECIFIED (3) Abdominal pain Assessment/Plan: resolved. Code(s): R10.9 - UNSPECIFIED ABDOMINAL PAIN Qualifiers: Abdominal location: right lower quadrant Qualified Code(s): R10.31 - Right lower quadrant pain (4) Hypomagnesemia Assessment/Plan: monitor with labs, currently mag is 2.5. (5) Normal Holter exam Assessment/Plan: holter monitor placement on 05/03 no significant pauses of evidence of AFib, one short self limited run of OSVT, likely atrial tachy (6) Physical therapy evaluation, initial Assessment/Plan: will have PT seen pt to determine exercise tolerance while pt is on tele Code(s): Z01.89 - ENCOUNTER FOR OTHER SPECIFIED SPECIAL EXAMINATIONS (7) Prophylactic measure Assessment/Plan: FEN cardiac diet monitor electrolytes DVT Proph continue coumadin Dispo maintain as inpatient on tele full code discharge planning Code(s): Z29.9 - ENCOUNTER FOR PROPHYLACTIC MEASURES, UNSPECIFIED Visit type - Emergency Visit Emergency Visit: Yes ED Registration Date: 05/02/19 Care time: The patient presented to the Emergency Department on the above date and was hospitalized for further evaluation of their emergent condition. - New Patient This patient is new to me today: No - Critical Care Critical Care patient: No - Discharge Referral Referred to [facility] Med P.C.: No
[2019-05-15 13:47] LABS: BASO % 1.1 % (0-2.0); EOS % 8.5 % (0-4.5); HEMATOCRIT 43.3 % (35.4-49); LYMPH % 30.5 % (8-40); MCH 31.4 pg (25.7-33.7); MEAN CELL VOLUME 91.1 fl (80-96); MONO % 6.8 % (3.8-10.2); NEUT % 53.1 % (42.8-82.8); PLATELET COUNT 424 K/MM3 (134-434); RBC 4.76 M/mm3 (4.00-5.60); RDW 12.1 % (11.9-15.9)
[2019-05-15] MEDS: WARFARIN NA 5 MG TABLET (UD) PO SCH (18:24)
[2019-05-15] MEDS: ATORVASTATIN CA 20 MG TABLET (FP) PO SCH (21:03)
[2019-05-16] MEDS: CARVEDILOL 25 MG TABLET (FP) PO SCH ×2 (09:17→21:43)
[2019-05-16] MEDS: CLOPIDOGREL BISULFATE 75 MG TABLET (FP) PO SCH (09:17)
[2019-05-16] MEDS: ENALAPRIL MALEATE 2.5 MG TABLET (FP) PO SCH ×2 (09:17→21:43)
[2019-05-16] MEDS: SPIRONOLACTONE 25 MG TABLET (FP) PO SCH (09:17)
[2019-05-16] MEDS ORDERED: PT OWN MED DRAWER 7, Y5N ONE (09:19)
--- NOTE | 2019-05-16 11:36 | PN ---
Progress Note, Physician Chief Complaint: Pt Alert; had moderately intense sharp chest pain at rest under the left breast that lasted only a second (information obtained via phone c unix developer). His is present. History of Present Illness: HPI: 69 y/o male, with PMH of CAD (s/p stent 5-6 years ago), presenting with low back and abdominal pain. Patient was evaluated in the ED yesterday, with a CTA negative for PE and chest pathology. He states his pain remains over the low back that radiates to the RLQ. Endorses some relief with Tylenol. Denies fever, chills, chest pain, SOB, palpitation, dizziness, weakness, N, V, D , bladder and bowel problems, leg swelling, No sick contacts or travel. No new changes in medications. No suspicious food intake Allergies: NKA, NKDA Past Medical History: CAD (s/p stent) Social history: Lives with family. Former smoker. No ETOH or drug use. Surgical history: Stent Meds: as documented in EMR PMD: NOS (doctor in [facility]) - Current Medication List Current Medications: Active Medications Acetaminophen (Tylenol -) 650 mg PO Q6H PRN PRN Reason: PAIN Last Admin: 05/09/19 10:31 Dose: 650 mg Atorvastatin Calcium (Lipitor -) 20 mg PO HS [facility] Last Admin: 05/15/19 21:03 Dose: 20 mg Carvedilol (Coreg -) 25 mg PO BID [facility] Last Admin: 05/16/19 09:17 Dose: 25 mg Clopidogrel Bisulfate (Plavix -) 75 mg PO DAILY [facility] Last Admin: 05/16/19 09:17 Dose: 75 mg Diphenhydramine HCl (Benadryl -) 25 mg PO Q6H PRN PRN Reason: FOR ITCHING Last Admin: 05/09/19 12:42 Dose: 25 mg Enalapril Maleate (Vasotec -) 5 mg PO BID [facility] Last Admin: 05/16/19 09:17 Dose: 5 mg Guaifenesin (Robitussin -) 10 ml PO Q6H PRN PRN Reason: COUGH Last Admin: 05/12/19 11:22 Dose: 10 ml Hydrocortisone (Hytone 1% Ointment -) 1 applic TP BID [facility] Last Admin: 05/15/19 21:03 Dose: 1 applic Spironolactone (Aldactone -) 25 mg PO DAILY [facility] Last Admin: 05/16/19 09:17 Dose: 25 mg Warfarin Sodium (Coumadin -) 5 mg PO DAILY@1800 [facility] Last Admin: 05/15/19 18:24 Dose: 5 mg - Objective Vital Signs: Vital Signs Temperature 97.9 F 05/16/19 09:15 Pulse Rate 59 L 05/16/19 02:15 Respiratory Rate 60 H 05/16/19 09:15 Blood Pressure 102/52 L 05/16/19 09:15 O2 Sat by Pulse Oximetry (%) 97 05/15/19 21:00 Constitutional: Yes: Anxious Eyes: Yes: WNL HENT: Yes: WNL Neck: Yes: WNL Cardiovascular: Yes: S1, S2 (split) Respiratory: Yes: WNL Gastrointestinal: Yes: Soft ...Rectal Exam: Yes: Deferred Genitourinary: No: Anuria Musculoskeletal: Yes: WNL Extremities: Yes: WNL Edema: No Peripheral Pulses WNL: Yes Neurological: Yes: WNL Psychiatric: Yes: WNL Labs: CBC, BMP 05/15/19 12:30 05/15/19 12:30 INR, PTT INR 2.08 (0.83-1.09) H 05/15/19 12:30 Abnormal Lab Results 05/16/19 05/16/19 05/16/19 12:50 12:50 12:50 Eosinophils % 9.2 H PT with INR 25.80 H INR 2.17 H Sodium 134 L Anion Gap 6 L BUN 30.2 H Triglycerides 267 H Cholesterol 241 H Total LDL Cholesterol 165 H HDL Cholesterol 31 L 05/17/19 05/17/19 05/17/19 06:40 06:40 06:40 Eosinophils % 7.9 H PT with INR 27.00 H INR 2.27 H Sodium 134 L Anion Gap 5 L BUN 34.7 H Triglycerides Cholesterol Total LDL Cholesterol HDL Cholesterol - ....Imaging Other: Image Reviewed (telemetry: NSR) Problem List - Problems (1) H/O heart artery stent Code(s): Z95.5 - PRESENCE OF CORONARY ANGIOPLASTY IMPLANT AND GRAFT (2) Left ventricular dysfunction with reduced left ventricular function Assessment/Plan: Continue present cardiac medications (carvedilol, enalapril, spironolactone). Recent streszs MIBI: no myocardial ischemia. ON warfarin (INR now >2). Pt will need Life Vest, then f/u ECHO several weeks after being on (and optimizing doses of) the above medication regimen for decision on whether AICD will be needed. Code(s): I51.9 - HEART DISEASE, UNSPECIFIED (3) Bifascicular block Code(s): I45.2 - BIFASCICULAR BLOCK (4) Hyperlipidemia Assessment/Plan: F/u lipid profile and TSH. Code(s): E78.5 - HYPERLIPIDEMIA, UNSPECIFIED
[2019-05-16] MEDS: HYDROCORTISONE 1% TOPICAL OINT 30 GM TUBE TP SCH ×2 (11:43→21:43)
--- NOTE | 2019-05-16 12:46 | PN ---
Progress Note, Physician Chief Complaint: sob History of Present Illness: no acute events overnight. used manager route phone to speak with patient and family. patient feels well, no chest pain, palpitations, sob, abdominal pain, n/ v/d. - Current Medication List Current Medications: Active Medications Acetaminophen (Tylenol -) 650 mg PO Q6H PRN PRN Reason: PAIN Last Admin: 05/09/19 10:31 Dose: 650 mg Atorvastatin Calcium (Lipitor -) 20 mg PO HS [facility] Last Admin: 05/15/19 21:03 Dose: 20 mg Carvedilol (Coreg -) 25 mg PO BID [facility] Last Admin: 05/16/19 09:17 Dose: 25 mg Clopidogrel Bisulfate (Plavix -) 75 mg PO DAILY [facility] Last Admin: 05/16/19 09:17 Dose: 75 mg Diphenhydramine HCl (Benadryl -) 25 mg PO Q6H PRN PRN Reason: FOR ITCHING Last Admin: 05/09/19 12:42 Dose: 25 mg Enalapril Maleate (Vasotec -) 5 mg PO BID [facility] Last Admin: 05/16/19 09:17 Dose: 5 mg Guaifenesin (Robitussin -) 10 ml PO Q6H PRN PRN Reason: COUGH Last Admin: 05/12/19 11:22 Dose: 10 ml Hydrocortisone (Hytone 1% Ointment -) 1 applic TP BID [facility] Last Admin: 05/16/19 11:43 Dose: 1 applic Spironolactone (Aldactone -) 25 mg PO DAILY [facility] Last Admin: 05/16/19 09:17 Dose: 25 mg Warfarin Sodium (Coumadin -) 5 mg PO DAILY@1800 [facility] Last Admin: 05/15/19 18:24 Dose: 5 mg - Objective Vital Signs: Vital Signs Temperature 97.9 F 05/16/19 09:15 Pulse Rate 59 L 05/16/19 02:15 Respiratory Rate 60 H 05/16/19 09:15 Blood Pressure 102/52 L 05/16/19 09:15 O2 Sat by Pulse Oximetry (%) 97 05/15/19 21:00 Constitutional: Yes: Well Nourished, No Distress, Calm Cardiovascular: Yes: WNL, Regular Rate and Rhythm Respiratory: Yes: WNL, Regular, CTA Bilaterally. No: Accessory Muscle Use, On Nasal O2 Gastrointestinal: Yes: WNL, Normal Bowel Sounds, Soft Musculoskeletal: Yes: WNL Extremities: Yes: WNL Edema: No Labs: CBC, BMP 05/15/19 12:30 05/15/19 12:30 INR, PTT INR 2.08 (0.83-1.09) H 05/15/19 12:30 Problem List - Problems (1) H/O heart artery stent Code(s): Z95.5 - PRESENCE OF CORONARY ANGIOPLASTY IMPLANT AND GRAFT (2) Hyperlipidemia Code(s): E78.5 - HYPERLIPIDEMIA, UNSPECIFIED (3) Hypomagnesemia Code(s): E83.42 - HYPOMAGNESEMIA (4) Infarction of kidney Code(s): N28.0 - ISCHEMIA AND INFARCTION OF KIDNEY (5) Left ventricular dysfunction with reduced left ventricular function Code(s): I51.9 - HEART DISEASE, UNSPECIFIED Assessment/Plan 69 year old Maltese speaking male, with PMH of CAD (s/p stent 5-6 years ago), presenting to the ED on 05/02/2019 with with low back and abdominal pain. CT abd/ pelvis revealed a right renal infarction/hypodensity, large area. He has been started on coumadin and has been evaluated by vascular. During hospital stay, an echo showed severely reduced EF 35% apical dyskinesis possible apical thrombus - most likely source of emboli. A lexiscan showed an old large anteroseptal IA, no ischemia. EF 17%. Assessment: Right Kidney Infarction likely from embolic source CAD s/p PCI Severe LV dysfunction HTN HLD Plan: -Continue anticoagulation for INR goal 2-3 -No plan for RICARDO at this time as it would not change overall management- even if no thrombus is vissible in dyskinetic apex (it could have gone and emboli renal artery) patient still will need manager intermediate AC to prevent another thrombus formation. -monitor on telemetry, no evidence of afib, Holter negative -BP borderline, c/w aceI, BB as tolerated, c/w aldactone -appreciate cardio recs -CAD s/p PCI on plavix only outpatient, no ASA, unclear why, continue plavix/ aceI/bb/statin -would increase statin to high intensity dose, 80 mg daily given LDL/TG levels SEVERE REDUCED LV DYSFUNCTION, NEEDS MEDICAL MANAGEMENT FOR 3 MONTHS AND REPEAT ECHOCARDIOGRAM TO ASSESS LV FUNCTION AND POSSIBLE NEED FOR AICD. IF EF REMAINS BELOW 35% AICD IS INDICATED. DURING THESE 3 MONTHS, PATIENT NEEDS LIFE VEST WHICH UNFORTUNATELY IS A PROBLEM FINANCIALLY. ONGOING DISCUSSIONS WITH FAMILY, SOCIAL WORK AND CARDIO, MAY BE A PRO-SMITA CASE AND HOSPITAL IS CONSIDERING PAYING FOR IT. [employer] life vest rep Roni Salazar [phone]
[2019-05-16 13:28] LABS: BASO % 1.1 % (0-2.0); EOS % 9.2 % (0-4.5); HEMATOCRIT 42.5 % (35.4-49); HEMOGLOBIN 14.8 GM/dL (11.7-16.9); LYMPH % 29.4 % (8-40); MCH 31.6 pg (25.7-33.7); MCHC 34.7 g/dl (32.0-35.9); MEAN CELL VOLUME 90.9 fl (80-96); MEAN PLT VOLUME 7.8 fl (7.5-11.1); MONO % 8.2 % (3.8-10.2); NEUT % 52.1 % (42.8-82.8); PLATELET COUNT 404 K/MM3 (134-434); RBC 4.68 M/mm3 (4.00-5.60); RDW 12.2 % (11.9-15.9); WHITE BLOOD COUNT 6.5 K/mm3 (4.0-10.0)
[2019-05-16 13:43] LABS: INR 2.17 (0.83-1.09); PROTHROMBIN TIME (PATIENT) 25.8 SEC (9.7-13.0)
[2019-05-16 14:07] LABS: ALBUMIN 3.5 g/dl (3.4-5.0); BILIRUBIN,TOTAL 0.3 mg/dL (0.2-1); BLOOD UREA NITROGEN 30.2 mg/dL (7-18); CALCIUM 9.6 mg/dL (8.5-10.1); TOT PROT 7.5 g/dl (6.4-8.2)
[2019-05-16 14:09] LABS: CREATININE 1.2 mg/dL (0.55-1.3)
[2019-05-16] MEDS: WARFARIN NA 5 MG TABLET (UD) PO SCH (17:37)
[2019-05-16] MEDS: ATORVASTATIN CA 20 MG TABLET (FP) PO SCH (21:43)
[2019-05-17 07:20] LABS: EOS % 7.9 % (0-4.5); HEMATOCRIT 42.5 % (35.4-49); HEMOGLOBIN 14.7 GM/dL (11.7-16.9); LYMPH % 32.7 % (8-40); MCH 31.4 pg (25.7-33.7); MCHC 34.7 g/dl (32.0-35.9); MEAN CELL VOLUME 90.4 fl (80-96); MEAN PLT VOLUME 7.9 fl (7.5-11.1); MONO % 7.6 % (3.8-10.2); NEUT % 50.8 % (42.8-82.8); PLATELET COUNT 404 K/MM3 (134-434); RDW 12.2 % (11.9-15.9); WHITE BLOOD COUNT 6.7 K/mm3 (4.0-10.0)
[2019-05-17 07:39] LABS: INR 2.27 (0.83-1.09)
[2019-05-17 07:47] LABS: ALBUMIN 3.6 g/dl (3.4-5.0); BILIRUBIN,TOTAL 0.4 mg/dL (0.2-1); BLOOD UREA NITROGEN 34.7 mg/dL (7-18); CALCIUM 9.5 mg/dL (8.5-10.1); CREATININE 1.3 mg/dL (0.55-1.3); TOT PROT 7.4 g/dl (6.4-8.2)
--- NOTE | 2019-05-17 09:31 | PN ---
Physical Exam: SUBJECTIVE: Patient seen and examined at bedside. Pt's son Alberto interpreted. No Acute events over night. Pt says he is feeling better. Pt denies cp, fever, chills, shob, abd pain, n/v/d. OBJECTIVE: Vital Signs Period Temp Pulse Resp BP Sys/Bland Pulse Ox Last 24 Hr 97.6 F-98.3 F 56-63 16-20 84-124/50-65 95 GENERAL: The patient is awake, alert, and fully oriented, in no acute distress. HEAD: Normal with no signs of trauma. EYES: PERRL, extraocular movements intact, sclera anicteric, conjunctiva clear. No ptosis. NECK: Trachea midline, full range of motion, supple. LUNGS: Breath sounds equal, clear to auscultation bilaterally, no wheezes, no crackles, no accessory muscle use. HEART: Regular rate and rhythm, S1, S2 ABDOMEN: Soft, nontender, nondistended, normoactive bowel sounds, no guarding, no rebound tenderness EXTREMITIES: 2+ pulses, warm, well-perfused, no edema. NEUROLOGICAL: Normal speech, gait not observed. PSYCH: Normal mood, normal affect. SKIN: Warm, dry, normal turgor, no rashes or lesions noted Laboratory Results - last 24 hr 05/16/19 05/16/19 05/16/19 12:50 12:50 12:50 WBC 6.5 RBC 4.68 Hgb 14.8 Hct 42.5 MCV 90.9 MCH 31.6 MCHC 34.7 RDW 12.2 Plt Count 404 MPV 7.8 Absolute Neuts (auto) 3.4 Neutrophils % 52.1 Lymphocytes % 29.4 Monocytes % 8.2 Eosinophils % 9.2 H Basophils % 1.1 Nucleated RBC % 0 PT with INR 25.80 H INR 2.17 H Sodium 134 L Potassium 5.0 Chloride 100 Carbon Dioxide 28 Anion Gap 6 L BUN 30.2 H Creatinine 1.2 Est GFR (CKD-EPI)AfAm 71.08 Est GFR (CKD-EPI)NonAf 61.33 Random Glucose 92 Calcium 9.6 Total Bilirubin 0.3 AST 18 ALT 30 Alkaline Phosphatase 77 Total Protein 7.5 Albumin 3.5 Triglycerides 267 H Cholesterol 241 H Total LDL Cholesterol 165 H HDL Cholesterol 31 L TSH 1.59 05/17/19 05/17/19 05/17/19 06:40 06:40 06:40 WBC 6.7 RBC 4.70 Hgb 14.7 Hct 42.5 MCV 90.4 MCH 31.4 MCHC 34.7 RDW 12.2 Plt Count 404 MPV 7.9 Absolute Neuts (auto) 3.4 Neutrophils % 50.8 Lymphocytes % 32.7 Monocytes % 7.6 Eosinophils % 7.9 H Basophils % 1.0 Nucleated RBC % 0 PT with INR 27.00 H INR 2.27 H Sodium 134 L Potassium 5.0 Chloride 101 Carbon Dioxide 27 Anion Gap 5 L BUN 34.7 H Creatinine 1.3 Est GFR (CKD-EPI)AfAm 64.52 Est GFR (CKD-EPI)NonAf 55.67 Random Glucose 94 Calcium 9.5 Total Bilirubin 0.4 AST 17 ALT 29 Alkaline Phosphatase 73 Total Protein 7.4 Albumin 3.6 Triglycerides Cholesterol Total LDL Cholesterol HDL Cholesterol TSH Active Medications Generic Name Dose Route Start Last Admin Trade Name Freq PRN Reason Stop Dose Admin Acetaminophen 650 mg 05/07/19 08:42 05/09/19 10:31 Tylenol - PO 650 mg Q6H PRN Administration PAIN Atorvastatin Calcium 20 mg 05/03/19 22:00 05/16/19 21:43 Lipitor - PO 20 mg HS MAZIN Administration Carvedilol 25 mg 05/09/19 22:00 05/16/19 21:43 Coreg - PO 25 mg BID MAZIN Administration Clopidogrel Bisulfate 75 mg 05/03/19 13:30 05/16/19 09:17 Plavix - PO 75 mg DAILY MAZIN Administration Diphenhydramine HCl 25 mg 05/09/19 11:44 05/09/19 12:42 Benadryl - PO 25 mg Q6H PRN Administration FOR ITCHING Enalapril Maleate 5 mg 05/06/19 10:00 05/16/19 21:43 Vasotec - PO 5 mg BID MAZIN Administration Guaifenesin 10 ml 05/10/19 05:44 05/12/19 11:22 Robitussin - PO 10 ml Q6H PRN Administration COUGH Hydrocortisone 1 applic 05/09/19 12:00 05/16/19 21:43 Hytone 1% Ointment - TP 1 applic BID MAZIN Administration Spironolactone 25 mg 05/05/19 15:30 05/16/19 09:17 Aldactone - PO 25 mg DAILY MAZIN Administration Warfarin Sodium 5 mg 05/14/19 18:00 05/16/19 17:37 Coumadin - PO 5 mg DAILY@1800 [facility]IN Administration ASSESSMENT/PLAN: 69 year-old male with a PMH significant for CAD s/p stents x 5 years in [facility]. Admitted for right renal infarction. Found to be in severe systolic heart failure with apical thrombus. Severe systolic heart failure --Echo: showed severely reduced EF 35% apical dyskinesis possible apical thrombus --Lexiscan showed EF 17% --may be candidate for AICD but needs to be medically optimized --needs Life Vest; arrangements in progress --continue enalapril, carvedilol, spironolactone Right renal infarction --apical thrombus most likely source of renal emboli --on coumadin, INR goal 2-3, presently therapeutic --continue current dosing Coronary artery disease s/p stents --continue Plavix (on at home), Lipitor FEN -cardiac diet -monitor electrolytes DVT Proph -on coumadin Dispo -maintain as inpatient on tele -full code -discharge planning Problem List - Problems (1) Abdominal pain Code(s): R10.9 - UNSPECIFIED ABDOMINAL PAIN Qualifiers: Abdominal location: right lower quadrant Qualified Code(s): R10.31 - Right lower quadrant pain (2) Hypomagnesemia Code(s): E83.42 - HYPOMAGNESEMIA (3) Infarction of kidney Code(s): N28.0 - ISCHEMIA AND INFARCTION OF KIDNEY (4) Left ventricular dysfunction with reduced left ventricular function Code(s): I51.9 - HEART DISEASE, UNSPECIFIED (5) Prophylactic measure Code(s): Z29.9 - ENCOUNTER FOR PROPHYLACTIC MEASURES, UNSPECIFIED Visit type - Emergency Visit Emergency Visit: Yes ED Registration Date: 05/02/19 Care time: The patient presented to the Emergency Department on the above date and was hospitalized for further evaluation of their emergent condition. - New Patient This patient is new to me today: No - Critical Care Critical Care patient: No
[2019-05-17] MEDS: SPIRONOLACTONE 25 MG TABLET (FP) PO SCH (10:39)
[2019-05-17] MEDS: CARVEDILOL 25 MG TABLET (FP) PO SCH ×2 (10:40→21:34)
[2019-05-17] MEDS: ENALAPRIL MALEATE 2.5 MG TABLET (FP) PO SCH ×2 (10:40→21:33)
[2019-05-17] MEDS: HYDROCORTISONE 1% TOPICAL OINT 30 GM TUBE TP SCH ×2 (10:47→21:34)
[2019-05-17] MEDS: CLOPIDOGREL BISULFATE 75 MG TABLET (FP) PO SCH (10:47)
[2019-05-17 11:29] VITALS: BMI 25.9
[2019-05-17] MEDS: WARFARIN NA 5 MG TABLET (UD) PO SCH (17:15)
[2019-05-17] MEDS: ATORVASTATIN CA 20 MG TABLET (FP) PO SCH (21:33)
[2019-05-18] MEDS ORDERED: PT OWN MED DRAWER 7, Y5N ONE (10:44)
[2019-05-18] MEDS: CARVEDILOL 25 MG TABLET (FP) PO SCH ×2 (10:54→21:19)
[2019-05-18] MEDS: CLOPIDOGREL BISULFATE 75 MG TABLET (FP) PO SCH (10:54)
[2019-05-18] MEDS: HYDROCORTISONE 1% TOPICAL OINT 30 GM TUBE TP SCH ×2 (10:55→21:21)
[2019-05-18] MEDS: ENALAPRIL MALEATE 2.5 MG TABLET (FP) PO SCH ×2 (11:04→21:19)
--- NOTE | 2019-05-18 11:30 | PN ---
Progress Note, Physician Chief Complaint: chest pain, resolved History of Present Illness: seen and examined, no events overnight. feeling well, patiently waiting for life vest. denies cp, sob, palpitations, n/v/d. - Current Medication List Current Medications: Active Medications Acetaminophen (Tylenol -) 650 mg PO Q6H PRN PRN Reason: PAIN Last Admin: 05/09/19 10:31 Dose: 650 mg Atorvastatin Calcium (Lipitor -) 20 mg PO HS [facility] Last Admin: 05/17/19 21:33 Dose: 20 mg Carvedilol (Coreg -) 25 mg PO BID [facility] Last Admin: 05/18/19 10:54 Dose: 25 mg Clopidogrel Bisulfate (Plavix -) 75 mg PO DAILY [facility] Last Admin: 05/18/19 10:54 Dose: 75 mg Diphenhydramine HCl (Benadryl -) 25 mg PO Q6H PRN PRN Reason: FOR ITCHING Last Admin: 05/09/19 12:42 Dose: 25 mg Enalapril Maleate (Vasotec -) 5 mg PO BID [facility] Last Admin: 05/18/19 11:04 Dose: 5 mg Guaifenesin (Robitussin -) 10 ml PO Q6H PRN PRN Reason: COUGH Last Admin: 05/12/19 11:22 Dose: 10 ml Hydrocortisone (Hytone 1% Ointment -) 1 applic TP BID [facility] Last Admin: 05/18/19 10:55 Dose: 1 applic Spironolactone (Aldactone -) 25 mg PO DAILY [facility] Last Admin: 05/17/19 10:39 Dose: Not Given Warfarin Sodium (Coumadin -) 5 mg PO DAILY@1800 [facility] Last Admin: 05/17/19 17:15 Dose: 5 mg - Objective Vital Signs: Vital Signs Temperature 98.3 F 05/18/19 10:56 Pulse Rate 63 05/18/19 10:56 Respiratory Rate 18 05/18/19 10:56 Blood Pressure 105/56 L 05/18/19 10:56 O2 Sat by Pulse Oximetry (%) 98 05/17/19 20:41 Constitutional: Yes: Well Nourished, No Distress, Calm Neck: Yes: WNL, Supple, Trachea Midline Cardiovascular: Yes: WNL, Regular Rate and Rhythm Respiratory: Yes: WNL, Regular, CTA Bilaterally Gastrointestinal: Yes: WNL, Normal Bowel Sounds, Soft Musculoskeletal: Yes: WNL Extremities: Yes: WNL Edema: No Peripheral Pulses WNL: Yes Labs: CBC, BMP 05/17/19 06:40 05/17/19 06:40 INR, PTT INR 2.27 (0.83-1.09) H 05/17/19 06:40 Problem List - Problems (1) H/O heart artery stent Code(s): Z95.5 - PRESENCE OF CORONARY ANGIOPLASTY IMPLANT AND GRAFT (2) Hyperlipidemia Code(s): E78.5 - HYPERLIPIDEMIA, UNSPECIFIED (3) Hypomagnesemia Code(s): E83.42 - HYPOMAGNESEMIA (4) Infarction of kidney Code(s): N28.0 - ISCHEMIA AND INFARCTION OF KIDNEY (5) Left ventricular dysfunction with reduced left ventricular function Code(s): I51.9 - HEART DISEASE, UNSPECIFIED Assessment/Plan 69 year old Micronesian speaking male, with PMH of CAD (s/p stent 5-6 years ago), presenting to the ED on 05/02/2019 with with low back and abdominal pain. CT abd/ pelvis revealed a right renal infarction/hypodensity, large area. He has been started on coumadin and has been evaluated by vascular. During hospital stay, an echo showed severely reduced EF 35% apical dyskinesis possible apical thrombus - most likely source of emboli. A lexiscan showed an old large anteroseptal SD, no ischemia. EF 17%. Assessment: Right Kidney Infarction likely from embolic source CAD s/p PCI Severe LV dysfunction HTN HLD Plan: -patient is essentially waiting for life vest, social problems specialist involved, -c/w AC, INR goal 2-3 -monitor on telemetry, no evidence of afib, Holter negative -c/w aceI, BB as tolerated -aldactone held yesterday for K of 5, would hold per cardio recs -CAD s/p PCI on, continue plavix/aceI/bb/statin -increase statin to high intensity dose, 80 mg daily given LDL/TG levels SEVERE REDUCED LV DYSFUNCTION, NEEDS MEDICAL MANAGEMENT FOR 3 MONTHS AND REPEAT ECHOCARDIOGRAM TO ASSESS LV FUNCTION AND POSSIBLE NEED FOR AICD. IF EF REMAINS BELOW 35% AICD IS INDICATED. DURING THESE 3 MONTHS, PATIENT NEEDS LIFE VEST WHICH UNFORTUNATELY IS A PROBLEM FINANCIALLY. ONGOING DISCUSSIONS WITH FAMILY, SOCIAL WORK AND CARDIO [employer] life vest rep Roni Salazar [phone]
[2019-05-18] MEDS: SPIRONOLACTONE 25 MG TABLET (FP) PO SCH (12:06)
[2019-05-18 13:31] LABS: BASO % 1.3 % (0-2.0); EOS % 7.3 % (0-4.5); HEMATOCRIT 43.9 % (35.4-49); HEMOGLOBIN 15.1 GM/dL (11.7-16.9); LYMPH % 30.1 % (8-40); MCH 31.1 pg (25.7-33.7); MCHC 34.3 g/dl (32.0-35.9); MEAN CELL VOLUME 90.7 fl (80-96); MEAN PLT VOLUME 8.1 fl (7.5-11.1); MONO % 8.8 % (3.8-10.2); NEUT % 52.5 % (42.8-82.8); RBC 4.84 M/mm3 (4.00-5.60); RDW 12.4 % (11.9-15.9); WHITE BLOOD COUNT 6.4 K/mm3 (4.0-10.0)
[2019-05-18 13:36] LABS: PLATELET COUNT 377 K/MM3 (134-434)
[2019-05-18 13:46] LABS: INR 2.32 (0.83-1.09); PROTHROMBIN TIME (PATIENT) 27.6 SEC (9.7-13.0)
[2019-05-18 14:06] LABS: ALBUMIN 3.7 g/dl (3.4-5.0); BILIRUBIN,TOTAL 0.4 mg/dL (0.2-1); BLOOD UREA NITROGEN 32.8 mg/dL (7-18); CALCIUM 9.3 mg/dL (8.5-10.1); CREATININE 1.3 mg/dL (0.55-1.3); POTASSIUM 4.9 mmol/L (3.5-5.1); TOT PROT 7.9 g/dl (6.4-8.2)
[2019-05-18] MEDS: WARFARIN NA 5 MG TABLET (UD) PO SCH (18:47)
[2019-05-18] MEDS: ATORVASTATIN CA 40 MG TABLET (FP) PO SCH (21:19)
[2019-05-18] MEDS: guaiFENesin 200 MG/10 ML 10 ML UNIT-DOSE CUPS PO PRN (21:19)
[2019-05-19 07:47] LABS: INR 2.39 (0.83-1.09); PROTHROMBIN TIME (PATIENT) 28.5 SEC (9.7-13.0)
[2019-05-19 09:52] LABS: BASO % 0.9 % (0-2.0); EOS % 7.4 % (0-4.5); HEMATOCRIT 43.2 % (35.4-49); HEMOGLOBIN 14.8 GM/dL (11.7-16.9); LYMPH % 33.3 % (8-40); MCH 31.1 pg (25.7-33.7); MCHC 34.3 g/dl (32.0-35.9); MEAN CELL VOLUME 90.8 fl (80-96); MEAN PLT VOLUME 8.2 fl (7.5-11.1); MONO % 6.8 % (3.8-10.2); NEUT % 51.6 % (42.8-82.8); RBC 4.76 M/mm3 (4.00-5.60); RDW 12.4 % (11.9-15.9)
[2019-05-19 10:03] LABS: PLATELET COUNT 335 K/MM3 (134-434)
[2019-05-19 10:06] LABS: ALBUMIN 3.6 g/dl (3.4-5.0); BILIRUBIN,TOTAL 0.5 mg/dL (0.2-1); BLOOD UREA NITROGEN 30.8 mg/dL (7-18); CALCIUM 8.7 mg/dL (8.5-10.1); CREATININE 1.2 mg/dL (0.55-1.3); POTASSIUM 4.7 mmol/L (3.5-5.1); TOT PROT 7.5 g/dl (6.4-8.2)
[2019-05-19] MEDS ORDERED: PT OWN MED DRAWER 7, Y5N ONE ×2 (10:08→19:39)
[2019-05-19] MEDS: CARVEDILOL 25 MG TABLET (FP) PO SCH ×2 (10:10→21:59)
[2019-05-19] MEDS: ENALAPRIL MALEATE 2.5 MG TABLET (FP) PO SCH ×2 (10:11→21:59)
[2019-05-19] MEDS: CLOPIDOGREL BISULFATE 75 MG TABLET (FP) PO SCH (10:11)
[2019-05-19] MEDS: HYDROCORTISONE 1% TOPICAL OINT 30 GM TUBE TP SCH ×2 (10:12→22:00)
--- NOTE | 2019-05-19 10:22 | PN ---
Progress Note, Physician Chief Complaint: no chest pain, no shortness of breath, patient ambulating w/o any dyspnea. no further coughing episodes reported. telemonitor: nsr 60s. History of Present Illness: Patient is a 69 year old male, with PMH of CAD (s/p stent 5-6 years ago), presenting to the ED on 05/02/2019 with with low back and abdominal pain. Patient was evaluated in the ED with a CTA negative for PE and chest pathology. However , a CT abd/pelvis revealed a right renal infarction/hypodensity, large area. He has been started on coumadin and has been evaluated by vascular. Patient had an echo and lexiscan that showed an EF 17%, likely source of emboli. Due to low EF, he will be medically managed and a [employer] vest has been recommended by cardiology. However, he is uninsured and currently this facility is attempting to coordinate for a [employer] Life vest with family. per [employer] unit support representative, the cost for [employer] vest is $3300 per month. Discussed with family that a zoll vest requires cardiology management and that the [employer]oll vest is a vest that is designed to treat patients automatically for any dangerous rapid heart rhythms and worn by patients at risk for sudden cardiac . contact info for [employer] rep Roni Lock # [phone] - cell phone imaging: -A echo showed severely reduced ef 35% apical dyskinesis possible apical thrombus - most likely source of emboli -Lexiscan large old anteroseptal MA, no ischemia. EF 17%. Akinesis anterior wall , septum and apex. - Current Medication List Current Medications: Active Medications Acetaminophen (Tylenol -) 650 mg PO Q6H PRN PRN Reason: PAIN Last Admin: 05/09/19 10:31 Dose: 650 mg Atorvastatin Calcium (Lipitor -) 80 mg PO HS [facility] Last Admin: 05/18/19 21:19 Dose: 80 mg Carvedilol (Coreg -) 25 mg PO BID [facility] Last Admin: 05/19/19 10:10 Dose: 25 mg Clopidogrel Bisulfate (Plavix -) 75 mg PO DAILY [facility] Last Admin: 05/19/19 10:11 Dose: 75 mg Diphenhydramine HCl (Benadryl -) 25 mg PO Q6H PRN PRN Reason: FOR ITCHING Last Admin: 05/09/19 12:42 Dose: 25 mg Enalapril Maleate (Vasotec -) 5 mg PO BID [facility] Last Admin: 05/19/19 10:11 Dose: 5 mg Guaifenesin (Robitussin -) 10 ml PO Q6H PRN PRN Reason: COUGH Last Admin: 05/18/19 21:19 Dose: 10 ml Hydrocortisone (Hytone 1% Ointment -) 1 applic TP BID [facility] Last Admin: 05/19/19 10:12 Dose: 1 applic Spironolactone (Aldactone -) 12.5 mg PO DAILY [facility] Warfarin Sodium (Coumadin -) 5 mg PO DAILY@1800 [facility] Last Admin: 05/18/19 18:47 Dose: 5 mg - Objective Vital Signs: Vital Signs Temperature 98.4 F 05/19/19 06:00 Pulse Rate 56 L 05/19/19 06:00 Respiratory Rate 16 05/19/19 09:00 Blood Pressure 101/55 L 05/19/19 06:00 O2 Sat by Pulse Oximetry (%) 95 05/19/19 09:00 Constitutional: Yes: Well Nourished, No Distress Neck: Yes: WNL Cardiovascular: Yes: WNL, Regular Rate and Rhythm Respiratory: Yes: WNL, Regular, CTA Bilaterally Gastrointestinal: Yes: Normal Bowel Sounds ...Rectal Exam: Yes: Deferred Genitourinary: Yes: WNL Extremities: Yes: WNL Edema: No Psychiatric: Yes: WNL Labs: CBC, BMP 05/19/19 09:10 05/19/19 09:10 INR, PTT INR 2.39 (0.83-1.09) H 05/19/19 06:10 Problem List - Problems (1) Infarction of kidney Assessment/Plan: CT scan shows lack of blood flow to 1/2 right kidney per vascular. will need nursing home ac with coumadin, goal inr 2-3 continue Plavix 75 mg will monitor for s/s of bleeding Code(s): N28.0 - ISCHEMIA AND INFARCTION OF KIDNEY (2) Left ventricular dysfunction with reduced left ventricular function Assessment/Plan: TTE showed severely reduced EF 35% apical dyskinesis possible apical thrombus - most likely source of emboli cardiology note reviewed and appreciated Lexiscan large old anteroseptal MA, no ischemia. EF 17%. Akinesis anterior wall , septum and apex. No plan for RICARDO at this time as it would not change overall management- Dr Vaughan will discuss treatment options with family/pt maintain on telemetry will need further w/u for possible AICD once patient is medically managed possible [employer] Life Vest Code(s): I51.9 - HEART DISEASE, UNSPECIFIED (3) Abdominal pain Assessment/Plan: resolved. Code(s): R10.9 - UNSPECIFIED ABDOMINAL PAIN Qualifiers: Abdominal location: right lower quadrant Qualified Code(s): R10.31 - Right lower quadrant pain (4) Hypomagnesemia Assessment/Plan: monitor with labs, (5) Normal Holter exam Assessment/Plan: holter monitor placement on 05/03 no significant pauses of evidence of AFib, one short self limited run of OSVT, likely atrial tachy (6) Physical therapy evaluation, initial Assessment/Plan: pt ordered Code(s): Z01.89 - ENCOUNTER FOR OTHER SPECIFIED SPECIAL EXAMINATIONS (7) Hyperlipemia Assessment/Plan: started on statin therapy Code(s): E78.5 - HYPERLIPIDEMIA, UNSPECIFIED (8) Prophylactic measure Assessment/Plan: FEN cardiac diet monitor electrolytes DVT Proph continue coumadin Dispo maintain as inpatient on tele full code discharge planning Code(s): Z29.9 - ENCOUNTER FOR PROPHYLACTIC MEASURES, UNSPECIFIED Visit type - Emergency Visit Emergency Visit: Yes ED Registration Date: 05/02/19 Care time: The patient presented to the Emergency Department on the above date and was hospitalized for further evaluation of their emergent condition. - New Patient This patient is new to me today: No - Critical Care Critical Care patient: No - Discharge Referral Referred to [facility] No
[2019-05-19] MEDS: SPIRONOLACTONE 25 MG TABLET (FP) PO SCH ×2 (10:55)
[2019-05-19] MEDS: WARFARIN NA 5 MG TABLET (UD) PO SCH (17:02)
[2019-05-19] MEDS: guaiFENesin 200 MG/10 ML 10 ML UNIT-DOSE CUPS PO PRN (17:04)
[2019-05-19] MEDS: ATORVASTATIN CA 40 MG TABLET (FP) PO SCH (21:59)
--- NOTE | 2019-05-20 08:30 | PN ---
Physical Exam: SUBJECTIVE: Patient seen and examined OBJECTIVE: Vital Signs Period Temp Pulse Resp BP Sys/Bland Pulse Ox Last 24 Hr 97.7 F-98.1 F 57-68 16-18 92-114/58-61 95-96 GENERAL: The patient is awake, alert, and fully oriented, in no acute distress. HEAD: Normal with no signs of trauma. EYES: PERRL, extraocular movements intact, sclera anicteric, conjunctiva clear. No ptosis. ENT: Ears normal, nares patent, oropharynx clear without exudates, moist mucous membranes. NECK: Trachea midline, full range of motion, supple. LUNGS: Breath sounds equal, clear to auscultation bilaterally, no wheezes, no crackles, no accessory muscle use. HEART: Regular rate and rhythm, S1, S2 without murmur, rub or gallop. ABDOMEN: Soft, nontender, nondistended, normoactive bowel sounds, no guarding, no rebound, no hepatosplenomegaly, no masses. EXTREMITIES: 2+ pulses, warm, well-perfused, no edema. NEUROLOGICAL: Cranial nerves II through XII grossly intact. Normal speech, gait not observed. PSYCH: Normal mood, normal affect. SKIN: Warm, dry, normal turgor, no rashes or lesions noted Laboratory Results - last 24 hr 05/19/19 05/19/19 09:10 09:10 WBC 6.0 RBC 4.76 Hgb 14.8 Hct 43.2 MCV 90.8 MCH 31.1 MCHC 34.3 RDW 12.4 Plt Count 335 MPV 8.2 Absolute Neuts (auto) 3.1 Neutrophils % 51.6 Lymphocytes % 33.3 Monocytes % 6.8 Eosinophils % 7.4 H Basophils % 0.9 Nucleated RBC % 0 Sodium 134 L Potassium 4.7 Chloride 98 Carbon Dioxide 29 Anion Gap 6 L BUN 30.8 H Creatinine 1.2 Est GFR (CKD-EPI)AfAm 71.08 Est GFR (CKD-EPI)NonAf 61.33 Random Glucose 124 H Calcium 8.7 Total Bilirubin 0.5 AST 21 ALT 29 Alkaline Phosphatase 76 Total Protein 7.5 Albumin 3.6 Active Medications Generic Name Dose Route Start Last Admin Trade Name Freq PRN Reason Stop Dose Admin Acetaminophen 650 mg 05/07/19 08:42 05/09/19 10:31 Tylenol - PO 650 mg Q6H PRN Administration PAIN Atorvastatin Calcium 80 mg 05/18/19 22:00 05/19/19 21:59 Lipitor - PO 80 mg HS MAZIN Administration Carvedilol 25 mg 05/09/19 22:00 05/19/19 21:59 Coreg - PO 25 mg BID MAZIN Administration Clopidogrel Bisulfate 75 mg 05/03/19 13:30 05/19/19 10:11 Plavix - PO 75 mg DAILY [facility]ZIN Administration Diphenhydramine HCl 25 mg 05/09/19 11:44 05/09/19 12:42 Benadryl - PO 25 mg Q6H PRN Administration FOR ITCHING Enalapril Maleate 5 mg 05/06/19 10:00 05/19/19 21:59 Vasotec - PO 5 mg BID MAZIN Administration Guaifenesin 10 ml 05/10/19 05:44 05/19/19 17:04 Robitussin - PO 10 ml Q6H PRN Administration COUGH Hydrocortisone 1 applic 05/09/19 12:00 05/19/19 22:00 Hytone 1% Ointment - TP 1 applic BID MAZIN Administration Spironolactone 12.5 mg 05/19/19 10:30 05/19/19 10:55 Aldactone - PO 12.5 mg DAILY MAZIN Administration Warfarin Sodium 5 mg 05/14/19 18:00 05/19/19 17:02 Coumadin - PO 5 mg DAILY@1800 MAZIN Administration ASSESSMENT/PLAN: Problem List - Problems (1) Abdominal pain Code(s): R10.9 - UNSPECIFIED ABDOMINAL PAIN Qualifiers: Abdominal location: right lower quadrant Qualified Code(s): R10.31 - Right lower quadrant pain (2) Hypomagnesemia Code(s): E83.42 - HYPOMAGNESEMIA (3) Infarction of kidney Code(s): N28.0 - ISCHEMIA AND INFARCTION OF KIDNEY (4) Left ventricular dysfunction with reduced left ventricular function Code(s): I51.9 - HEART DISEASE, UNSPECIFIED (5) Prophylactic measure Code(s): Z29.9 - ENCOUNTER FOR PROPHYLACTIC MEASURES, UNSPECIFIED
[2019-05-20] MEDS: SPIRONOLACTONE 25 MG TABLET (FP) PO SCH (09:12)
[2019-05-20] MEDS: ENALAPRIL MALEATE 2.5 MG TABLET (FP) PO SCH (09:12)
[2019-05-20] MEDS: CARVEDILOL 25 MG TABLET (FP) PO SCH (09:12)
[2019-05-20] MEDS: CLOPIDOGREL BISULFATE 75 MG TABLET (FP) PO SCH (09:12)
[2019-05-20] MEDS: HYDROCORTISONE 1% TOPICAL OINT 30 GM TUBE TP SCH (10:46)
--- NOTE | 2019-05-20 15:52 | PN ---
Progress Note, Physician - Current Medication List Current Medications: Active Medications Acetaminophen (Tylenol -) 650 mg PO Q6H PRN PRN Reason: PAIN Last Admin: 05/09/19 10:31 Dose: 650 mg Atorvastatin Calcium (Lipitor -) 80 mg PO HS [facility] Last Admin: 05/19/19 21:59 Dose: 80 mg Carvedilol (Coreg -) 25 mg PO BID [facility] Last Admin: 05/20/19 09:12 Dose: 25 mg Clopidogrel Bisulfate (Plavix -) 75 mg PO DAILY [facility] Last Admin: 05/20/19 09:12 Dose: 75 mg Diphenhydramine HCl (Benadryl -) 25 mg PO Q6H PRN PRN Reason: FOR ITCHING Last Admin: 05/09/19 12:42 Dose: 25 mg Enalapril Maleate (Vasotec -) 5 mg PO BID [facility] Last Admin: 05/20/19 09:12 Dose: 5 mg Guaifenesin (Robitussin -) 10 ml PO Q6H PRN PRN Reason: COUGH Last Admin: 05/19/19 17:04 Dose: 10 ml Hydrocortisone (Hytone 1% Ointment -) 1 applic TP BID [facility] Last Admin: 05/20/19 10:46 Dose: 1 applic Spironolactone (Aldactone -) 12.5 mg PO DAILY [facility] Last Admin: 05/20/19 09:12 Dose: 12.5 mg Warfarin Sodium (Coumadin -) 5 mg PO DAILY@1800 [facility] Last Admin: 05/19/19 17:02 Dose: 5 mg - Objective Vital Signs: Vital Signs Temperature 97.8 F 05/20/19 10:00 Pulse Rate 62 05/20/19 10:00 Respiratory Rate 18 05/20/19 10:00 Blood Pressure 125/71 05/20/19 10:00 O2 Sat by Pulse Oximetry (%) 94 L 05/20/19 09:00 Labs: CBC, BMP 05/19/19 09:10 05/19/19 09:10 INR, PTT INR 2.39 (0.83-1.09) H 05/19/19 06:10 Problem List - Problems (1) H/O heart artery stent Code(s): Z95.5 - PRESENCE OF CORONARY ANGIOPLASTY IMPLANT AND GRAFT (2) Left ventricular dysfunction with reduced left ventricular function Code(s): I51.9 - HEART DISEASE, UNSPECIFIED (3) Bifascicular block Code(s): I45.2 - BIFASCICULAR BLOCK (4) Hyperlipidemia Code(s): E78.5 - HYPERLIPIDEMIA, UNSPECIFIED
--- NOTE | 2019-05-20 15:53 | PN ---
Progress Note, Physician - Current Medication List Current Medications: Active Medications Acetaminophen (Tylenol -) 650 mg PO Q6H PRN PRN Reason: PAIN Last Admin: 05/09/19 10:31 Dose: 650 mg Atorvastatin Calcium (Lipitor -) 80 mg PO HS [facility] Last Admin: 05/19/19 21:59 Dose: 80 mg Carvedilol (Coreg -) 25 mg PO BID [facility] Last Admin: 05/20/19 09:12 Dose: 25 mg Clopidogrel Bisulfate (Plavix -) 75 mg PO DAILY [facility] Last Admin: 05/20/19 09:12 Dose: 75 mg Diphenhydramine HCl (Benadryl -) 25 mg PO Q6H PRN PRN Reason: FOR ITCHING Last Admin: 05/09/19 12:42 Dose: 25 mg Enalapril Maleate (Vasotec -) 5 mg PO BID [facility] Last Admin: 05/20/19 09:12 Dose: 5 mg Guaifenesin (Robitussin -) 10 ml PO Q6H PRN PRN Reason: COUGH Last Admin: 05/19/19 17:04 Dose: 10 ml Hydrocortisone (Hytone 1% Ointment -) 1 applic TP BID [facility] Last Admin: 05/20/19 10:46 Dose: 1 applic Spironolactone (Aldactone -) 12.5 mg PO DAILY [facility] Last Admin: 05/20/19 09:12 Dose: 12.5 mg Warfarin Sodium (Coumadin -) 5 mg PO DAILY@1800 [facility] Last Admin: 05/19/19 17:02 Dose: 5 mg - Objective Vital Signs: Vital Signs Temperature 97.8 F 05/20/19 10:00 Pulse Rate 62 05/20/19 10:00 Respiratory Rate 18 05/20/19 10:00 Blood Pressure 125/71 05/20/19 10:00 O2 Sat by Pulse Oximetry (%) 94 L 05/20/19 09:00 Labs: CBC, BMP 05/19/19 09:10 05/19/19 09:10 INR, PTT INR 2.39 (0.83-1.09) H 05/19/19 06:10 Problem List - Problems (1) H/O heart artery stent Code(s): Z95.5 - PRESENCE OF CORONARY ANGIOPLASTY IMPLANT AND GRAFT (2) Left ventricular dysfunction with reduced left ventricular function Code(s): I51.9 - HEART DISEASE, UNSPECIFIED (3) Bifascicular block Code(s): I45.2 - BIFASCICULAR BLOCK (4) Hyperlipidemia Code(s): E78.5 - HYPERLIPIDEMIA, UNSPECIFIED
--- NOTE | 2019-05-20 15:53 | PN ---
Progress Note, Physician - Current Medication List Current Medications: Active Medications Acetaminophen (Tylenol -) 650 mg PO Q6H PRN PRN Reason: PAIN Last Admin: 05/09/19 10:31 Dose: 650 mg Atorvastatin Calcium (Lipitor -) 80 mg PO HS [facility] Last Admin: 05/19/19 21:59 Dose: 80 mg Carvedilol (Coreg -) 25 mg PO BID [facility] Last Admin: 05/20/19 09:12 Dose: 25 mg Clopidogrel Bisulfate (Plavix -) 75 mg PO DAILY [facility] Last Admin: 05/20/19 09:12 Dose: 75 mg Diphenhydramine HCl (Benadryl -) 25 mg PO Q6H PRN PRN Reason: FOR ITCHING Last Admin: 05/09/19 12:42 Dose: 25 mg Enalapril Maleate (Vasotec -) 5 mg PO BID [facility] Last Admin: 05/20/19 09:12 Dose: 5 mg Guaifenesin (Robitussin -) 10 ml PO Q6H PRN PRN Reason: COUGH Last Admin: 05/19/19 17:04 Dose: 10 ml Hydrocortisone (Hytone 1% Ointment -) 1 applic TP BID [facility] Last Admin: 05/20/19 10:46 Dose: 1 applic Spironolactone (Aldactone -) 12.5 mg PO DAILY [facility] Last Admin: 05/20/19 09:12 Dose: 12.5 mg Warfarin Sodium (Coumadin -) 5 mg PO DAILY@1800 [facility] Last Admin: 05/19/19 17:02 Dose: 5 mg - Objective Vital Signs: Vital Signs Temperature 97.8 F 05/20/19 10:00 Pulse Rate 62 05/20/19 10:00 Respiratory Rate 18 05/20/19 10:00 Blood Pressure 125/71 05/20/19 10:00 O2 Sat by Pulse Oximetry (%) 94 L 05/20/19 09:00 Labs: CBC, BMP 05/19/19 09:10 05/19/19 09:10 INR, PTT INR 2.39 (0.83-1.09) H 05/19/19 06:10 Problem List - Problems (1) H/O heart artery stent Code(s): Z95.5 - PRESENCE OF CORONARY ANGIOPLASTY IMPLANT AND GRAFT (2) Left ventricular dysfunction with reduced left ventricular function Code(s): I51.9 - HEART DISEASE, UNSPECIFIED (3) Bifascicular block Code(s): I45.2 - BIFASCICULAR BLOCK (4) Hyperlipidemia Code(s): E78.5 - HYPERLIPIDEMIA, UNSPECIFIED
[2019-05-20 15:58] VITALS: BP 114/60; PULSE 58; TEMP 97.9
--- NOTE | 2019-05-20 16:29 | DS ---
Physical Exam: SUBJECTIVE: Patient seen and examined OBJECTIVE: Patient is a 69 year old male, with PMH of CAD (s/p stent 5-6 years ago), presenting to the ED on 05/02/2019 with with low back and abdominal pain. Patient was evaluated in the ED with a CTA negative for PE and chest pathology. However , a CT abd/pelvis revealed a right renal infarction/hypodensity, large area. He has been started on coumadin and has been evaluated by vascular and cardiology during hospitalization. Patient had an echo and lexiscan that showed an EF 17%, likely source of emboli. Due to his low EF, he will be medically managed with beta blockers, aldactone, coumadin and an mai inihibitor as well as a Zoll vest. He will be discharged today with a zoll vest and recommended to family that they follow up with cardiology as an outpatient. Medications have called into patient's pharmacy for continued management, and patient to be seen by the [facility] for an INR check within 3-5 days. Patient family aware that a Zoll vest must be kept on at all times. and the goal is for a re evaluation in 90 days to assess continued need for Zoll vest. If EF remains low, patient may need an AICD per cardiology. Vital Signs Period Temp Pulse Resp BP Sys/Bland Pulse Ox Last 24 Hr 97.7 F-98.1 F 58-62 16-18 92-125/58-71 94-96 PHYSICAL EXAM as of 05/19/19 GENERAL: The patient is awake, alert, and fully oriented, in no acute distress - primarily speaks Khmer HEAD: Normal with no signs of trauma. EYES: PERRL, extraocular movements intact, sclera anicteric, conjunctiva clear. ENT: Ears normal, nares patent, oropharynx clear without exudates, moist mucous membranes. NECK: Trachea midline, full range of motion, supple. LUNGS: Breath sounds equal, clear to auscultation bilaterally HEART: Regular rate and rhythm, ABDOMEN: Soft, nontender, nondistended, normoactive bowel sounds, no guarding, no rebound, no hepatosplenomegaly, no masses. EXTREMITIES: 2+ pulses, warm, well-perfused, no edema. HOSPITAL COURSE: Date of Admission:05/02/19 Date of Discharge: 05/20/19 Patient is a 69 year old male, with PMH of CAD (s/p stent 5-6 years ago), presenting to the ED on 05/02/2019 with with low back and abdominal pain. Patient was evaluated in the ED with a CTA negative for PE and chest pathology. However , a CT abd/pelvis revealed a right renal infarction/hypodensity, large area. He has been started on coumadin and has been evaluated by vascular and cardiology during hospitalization. Patient had an echo and lexiscan that showed an EF 17%, likely source of emboli. Due to his low EF, he will be medically managed with beta blockers, aldactone, coumadin and an mai inihibitor as well as a Zoll vest. He will be discharged today with a zoll vest and recommended to family that they follow up with cardiology as an outpatient. Medications have called into patient's pharmacy for continued management, and patient to be seen by the [facility] for an INR check within 3-5 days. Patient family aware that a Zoll vest must be kept on at all times. and the goal is for a re evaluation in 90 days to assess continued need for Zoll vest. If EF remains low, patient may need an AICD per cardiology. Medications called into patients pharmacy, discussed numerous times with family the importance of outpatient follow up with cardiology. INR to be checked within 3-5 days at [facility]. full code Minutes to complete discharge: 60 Discharge Summary Reason For Visit: RENAL INFARCTION Current Active Problems Abdominal pain (Acute) Bifascicular block (Acute) H/O heart artery stent (Acute) Hyperlipemia (Acute) Hyperlipidemia (Acute) Hypomagnesemia (Acute) Infarction of kidney (Acute) Left ventricular dysfunction with reduced left ventricular function (Acute) Normal Holter exam (Acute) Physical therapy evaluation, initial (Acute) Prophylactic measure (Acute) Condition: Fair - Instructions Diet, Activity, Other Instructions: Follow up with Dr. Santoyo in 3-5 days for INR check. Remain on a Controlled low cholesterol low fat diet. Referrals: Rk Santoyo MD [Staff Physician] - Disposition: HOME - Home Medications Comprehensive Discharge Medication List: Ambulatory Orders Atorvastatin Ca [Lipitor] 20 mg PO HS 05/02/19 Clopidogrel Bisulfate [Plavix] 75 mg PO DAILY 05/02/19 Nebivolol [Bystolic -] 5 mg PO DAILY 05/02/19 Carvedilol [Coreg -] 25 mg PO BID #60 tablet 05/20/19 Enalapril Maleate [Vasotec -] 5 mg PO BID #60 tablet 05/20/19 Spironolactone [Aldactone] 12.5 mg PO DAILY 30 Days #30 tablet 05/20/19 Warfarin Na [Coumadin] 5 mg PO DAILY@1800 90 Days #90 tablet 05/20/19 Problem List - Problems (1) Infarction of kidney Code(s): N28.0 - ISCHEMIA AND INFARCTION OF KIDNEY (2) Left ventricular dysfunction with reduced left ventricular function Code(s): I51.9 - HEART DISEASE, UNSPECIFIED (3) Abdominal pain Code(s): R10.9 - UNSPECIFIED ABDOMINAL PAIN Qualifiers: Abdominal location: right lower quadrant Qualified Code(s): R10.31 - Right lower quadrant pain (4) Hypomagnesemia (5) Normal Holter exam (6) Physical therapy evaluation, initial Code(s): Z01.89 - ENCOUNTER FOR OTHER SPECIFIED SPECIAL EXAMINATIONS (7) Hyperlipemia Code(s): E78.5 - HYPERLIPIDEMIA, UNSPECIFIED (8) Prophylactic measure Code(s): Z29.9 - ENCOUNTER FOR PROPHYLACTIC MEASURES, UNSPECIFIED This patient is new to me today: No Emergency Visit: Yes ED Registration Date: 05/02/19 Care time: The patient presented to the Emergency Department on the above date and was hospitalized for further evaluation of their emergent condition. Critical Care patient: No - Discharge Referral Referred to [facility] Med P.C.: No
== END 2019-05-20 16:58 | disposition home or self-care (01) | DRG 468 ==
LOC: JER 12:12 → JERBED 15:07 → J6S 19:55 → J4S 05-03 14:48
PROVIDERS: ATTEND Nurse Practitioner Acute Care
DX: N28.0 Ischemia and infarction of kidney (principal); E78.5 Hyperlipidemia, unspecified; I10 Essential (primary) hypertension; I25.119 Atherosclerotic heart disease of native coronary artery with unspecified angina pectoris; I25.2 Old myocardial infarction; E83.42 Hypomagnesemia; R10.31 Right lower quadrant pain; I45.2 Bifascicular block; I11.0 Hypertensive heart disease with heart failure; I51.3 Intracardiac thrombosis, not elsewhere classified; I50.20 Unspecified systolic (congestive) heart failure; Z79.01 Long term (current) use of anticoagulants; Z95.5 Presence of coronary angioplasty implant and graft
CPT/HCPCS: 36415; 74177-TC; 78452-TC; 80053; 80061; 83605; 83690; 83721; 83735; 84443; 84484; 85025; 85027; 85610; 85730; 93005; 93010; 93017; 93225; 93226; 93306-TC; 97116-GP; 97161-GP; 99283-25; A9502; J0131; J1644; J2785; J7030